=== PATIENT | female | born 1935 | race Caucasian/White ===

== ENCOUNTER 2017-09-07 16:35 | Emergency (ER) | payer OTHER, BC ==
[2017-09-07 17:25] LABS: Absolute Monocytes 0.7 K/uL (0.1-1.3); Absolute Neutrophil 4.5 K/uL (1.8-8.0); Basophils % 1.9 % (0-1.3); Eosinophils % 2.4 % (0-4.4); Hematocrit 31.1 % (36.0-45.0); Lymphocytes % 26.5 % (15.3-44.8); MCH 28.8 pg (27.0-35.0); MCV 85.7 fL (80-100); MPV 8.9 fL (7.6-11.3); Monocytes % 9.7 % (3.3-12.3); RBC Red Blood Cell Count 3.62 M/uL (3.86-4.86)
--- NOTE | 2017-09-07 17:28 | RAD REPORT ---
EXAM DESCRIPTION: CT - Ct Stroke Brain Wo Cont - 09/07/2017 5:22 pm CLINICAL HISTORY: Altered consciousness, history of TIA. COMPARISON: 06/16/2017, 02/03/2016 TECHNIQUE: All CT scans are performed using dose optimization technique as appropriate and may inclu de automated exposure control or mA/KV adjustment according to patient size. FINDINGS: No intracranial hemorrhage, hydrocephalus or extra-axial fluid collection.Mild generalized brain atrophy is present with mild periventricular and deep white matter chronic microvascular ische neli changes.No areas of brain edema or evidence of midline shift. Moderate mucosal thickening of the right maxillary antrum noted. The paranasal sinuses and mastoids a re otherwise clear. The calvarium is intact. IMPRESSION: No acute intracranial abnormality.
[2017-09-07 17:33] LABS: Protime INR 0.96
[2017-09-07 17:35] LABS: Potassium 3.4 mEq/L (3.6-5.0)
[2017-09-07 17:57] LABS: Magnesium 1.2 mg/dL (1.8-2.5)
[2017-09-07] MEDS ORDERED: Magnesium Sulfate 2gm IVPB 2 G/50 ML BAG IV ONE (18:05)
[2017-09-07 18:42] LABS: Urine Blood NEGATIVE (NEG); Urine Glucose NEGATIVE (NEG); Urine Protein NEGATIVE (NEG); Urine Specific Gravity <1.005 (1.005-1.030); Urine pH 5.5 (5.0-7.0)
[2017-09-07 18:46] LABS: Urine Bacteria <20 /HPF (<20); Urine Culture Reflex Order REFLEXED; Urine RBC <5 /HPF (NONE SEEN)
[2017-09-07] MEDS ORDERED: CEFTRIAXONE/SWI 1gm 1 GM/10 ML SYR ONE (18:57)
--- NOTE | 2017-09-07 18:59 | ER ---
Nurse's Notes [facility] Emergency Department Name: Alexa Mcintyre Age: 81 yrs Sex: Female : 1935 Arrival Date: 09/07/2017 Time: 16:42 Bed 2 Private MD: Diagnosis: Urinary tract infection. Presentation: 09/07 16:42 Presenting complaint: EMS states: [facility] left 10 min prior to calling 911. jl7 Pt's reports pt is altered. Pt and pt's are poor historians. [place] stroke scale is negative. Transition of care: patient was not received from another setting of care. Onset of symptoms was September 07, 2017. Care prior to arrival: None. 16:42 Method Of Arrival: EMS: [facility] jl7 16:42 Acuity: ULICES 3 jl7 19:05 Initial Sepsis Screen: Does the patient meet any 2 criteria? Altered Mental Status. jl7 Does the patient have a suspected source of infection? No. Patient's initial sepsis screen is negative. Historical: - Allergies: 16:46 Sulfa (Sulfonamide Antibiotics); jl7 - Home Meds: 16:46 atorvastatin 20 mg Oral tab 1 tab once daily [Active]; lorazepam 0.5 mg Oral tab 1 tab jl7 3 times per day [Active]; metoprolol tartrate 50 mg Oral tab 1 tab 2 times per day [Active]; Plavix 75 mg Oral tab 1 tab once daily [Active]; - PMHx: 16:46 Anxiety; BREAST CA; Diverticulitis; Hyperlipidemia; Hypertension; TIA; jl7 - Immunization history:: Adult Immunizations up to date. - Social history:: Smoking status: Patient/guardian denies using tobacco. Screenin:50 Abuse screen: Denies threats or abuse. Denies injuries from another. Nutritional jl7 screening: No deficits noted. Tuberculosis screening: No symptoms or risk factors identified. Fall Risk IV access (20 points). Total Watson Fall Scale indicates No Risk (0-24 pts). 17:18 The patient has not been NPO before screening. The patient is currently on the jl7 following diet: regular The patient is alert, able to follow commands. The patient does not exhibit slurred or garbled speech The patient is not exhibiting difficulty speaking. The patient does not exhibit difficulty understanding words. The patient is able to swallow own secretions with no drooling or need for suction. Patient tolerated one teaspoon of water. No drooling, immediate coughing, gurgling, or clearing of the throat was noted. The patient tolerated 90mL of water. No drooling, immediate coughing, gurgling, or clearing of the throat was noted. The patient passed the bedside swallow screening. Oral medications may be given as ordered. Contact Physician for further diet orders. Provider notified of bedside swallow screening results: Aris Hi MD. Assessment: 16:50 General: Appears in no apparent distress. uncomfortable, Behavior is calm, cooperative, jl7 appropriate for age. Pain: Denies pain. Neuro: Level of Consciousness is awake, alert, obeys commands, Oriented to person, place, time, Refuge Worker are equal bilaterally Moves all extremities. Speech is normal, Facial symmetry appears normal, Pupils are PERRLA. Cardiovascular: Denies chest pain, Patient's skin is warm and dry. Respiratory: Airway is patent Respiratory effort is even, unlabored, Respiratory pattern is regular, symmetrical, Denies shortness of breath. GI: No signs and/or symptoms were reported involving the gastrointestinal system. Patient currently denies diarrhea, nausea, vomiting. : No signs and/or symptoms were reported regarding the genitourinary system. EENT: No signs and/or symptoms were reported regarding the EENT system. Derm: Skin is pink, warm \T\ dry. Musculoskeletal: No signs and/or symptoms reported regarding the musculoskeletal system. 18:00 Reassessment: No changes from previously documented assessment. Patient and/or family jl7 updated on plan of care and expected duration. Pain level reassessed. Patient is alert, oriented x 3, equal unlabored respirations, skin warm/dry/pink. 18:21 Reassessment: Patient up to bedside commode to urinate, urine sample obtained at this ae1 time. 19:15 Reassessment: Patient is alert, oriented x 3, equal unlabored respirations, skin lp1 warm/dry/pink. Aware of discharge after completion of Magnesium IV. Vital Signs: 16:46 BP 136 / 94; Pulse 71; Resp 16 S; Pulse Ox 99% on R/A; Weight 59.42 kg (R); Height 5 jl7 ft. 1 in. (154.94 cm) (R); Pain 0/10; 17:18 BP 151 / 76; Pulse 71; Resp 16 S; Pulse Ox 99% on R/A; jl7 18:20 BP 167 / 78; Pulse 64; Resp 20 S; Temp 97.8(O); Pulse Ox 100% on R/A; ae1 19:15 BP 151 / 71; Pulse 66; Resp 20; Pulse Ox 98% on R/A; lp1 19:45 BP 134 / 80; Pulse 70; Resp 21; Temp 98.4(O); Pulse Ox 99% on R/A; Pain 0/10; lp1 16:46 Body Mass Index 24.75 (59.42 kg, 154.94 cm) jl7 ED Course: 16:42 Patient arrived in ED. jl7 16:45 Triage completed. jl7 16:46 Arm band placed on right wrist. jl7 16:50 Patient has correct armband on for positive identification. Placed in gown. Bed in low jl7 position. Call light in reach. Side rails up X 1. splitting machine operator on. Pulse ox on. NIBP on. Warm blanket given. 16:50 Lab(s) recollected, by ED staff, sent to lab. Inserted saline lock: 20 gauge in right jl7 antecubital area, using aseptic technique. ,using aseptic technique. Inserted by JES [place] Blood collected. 17:03 Ishan Hercules, KARON is Primary Nurse. jl7 17:03 Aris Hi MD is Attending Physician. ps1 17:22 CT Stroke Brain w/o Contrast In Process Unspecified. EDMS 17:32 Patient moved to radiology via stretcher. ag1 17:32 X-ray completed. Patient tolerated procedure well. ag1 17:32 Patient moved back from radiology. ag1 17:32 Stroke CXR 1 View In Process Unspecified. EDMS 17:58 EKG done, by master automotive glass technician. reviewed by Aris Hi MD. at1 20:00 No provider procedures requiring assistance completed. IV discontinued, No lp1 redness/swelling at site. Pressure dressing applied. Administered Medications: 18:08 Drug: Magnesium Sulfate 2 grams Route: IVPB; Infused Over: 2 hrs; Site: right ae1 antecubital; 19:30 Follow up: IV Status: Completed infusion lp1 19:01 Drug: Rocephin - (cefTRIAXone) 1 grams Route: IVPB; Infused Over: 30 mins; Site: right jl7 antecubital; 19:05 Follow up: Response: No adverse reaction; IV Status: Completed infusion jl7 Outcome: 18:59 Discharge ordered by . ps1 20:00 Discharged to home ambulatory, with significant other. lp1 20:00 Condition: good 20:00 Discharge instructions given to patient, Instructed on discharge instructions, follow up and referral plans. medication usage, Demonstrated understanding of instructions, follow-up care, medications, Prescriptions given X 1. 20:00 Patient left the ED. lp1 Signatures: Dispatcher [employer] EDMS Estrella Fernandez RN RN lp1 Joanna warren, delta system freight car cleaner EKG Tat1 Eusebia Bazzi ag1 Grzegorz Preciado RN RN ae1 Ishan Hercules RN RN jl7 Aris Hi MD MD ps1 Corrections: (The following items were deleted from the chart) 19:05 19:04 Rocephin - (cefTRIAXone) 1 grams IVPB in right antecubital over 30 mins jl7 jl7 21:03 21:03 No provider procedures requiring assistance completed. lp1 lp1 21:03 21:03 IV discontinued, No redness/swelling at site. Pressure dressing applied, lp1 lp1 21:05 21:04 Patient left the ED. lp1 lp1
--- NOTE | 2017-09-07 18:59 | EDPHYS ---
Physician Documentation [facility] Name: Alexa Mcintyre Age: 81 yrs Sex: Female : 1935 Arrival Date: 09/07/2017 Time: 16:42 Bed 2 Private MD: ED Physician Aris Hi HPI: 09/07 18:44 This 81 yrs old Female presents to ER via EMS with complaints of Altered ps1 Mental Status. 18:44 The patient presents with confusion. Onset: The symptoms/episode began/occurred just ps1 prior to arrival. Possible causes: unknown. Associated signs and symptoms: Pertinent negatives: ataxia, chest pain, confusion, shortness of breath, weakness. Patient's baseline: Neuro: alert and fully oriented, Motor: no deficits, Ambulation: walks without assistance, Speech: normal. hx of diverticulitis. Reportedly had some confusion and word finding difficulty. She was alert and oriented on presentation with NIHSS 0. Followed all commands appropriately. . Historical: - Allergies: 16:46 Sulfa (Sulfonamide Antibiotics); jl7 - Home Meds: 16:46 atorvastatin 20 mg Oral tab 1 tab once daily [Active]; lorazepam 0.5 mg Oral tab 1 tab jl7 3 times per day [Active]; metoprolol tartrate 50 mg Oral tab 1 tab 2 times per day [Active]; Plavix 75 mg Oral tab 1 tab once daily [Active]; - PMHx: 16:46 Anxiety; BREAST CA; Diverticulitis; Hyperlipidemia; Hypertension; TIA; jl7 - Immunization history:: Adult Immunizations up to date. - Social history:: Smoking status: Patient/guardian denies using tobacco. ROS: 18:44 Constitutional: Negative for fever, chills, and weight loss, Eyes: Negative for injury, ps1 pain, redness, and discharge, ENT: Negative for injury, pain, and discharge, Cardiovascular: Negative for chest pain, palpitations, and edema, Respiratory: Negative for shortness of breath, cough, wheezing, and pleuritic chest pain, Abdomen/GI: Negative for abdominal pain, nausea, vomiting, diarrhea, and constipation, Back: Negative for injury and pain, MS/Extremity: Negative for injury and deformity, Skin: Negative for injury, rash, and discoloration, Neuro: Negative for headache, weakness, numbness, tingling, and seizure, Psych: Negative for depression, anxiety, suicide ideation, homicidal ideation, and hallucinations. Exam: 18:44 Constitutional: This is a well developed, well nourished patient who is awake, alert, ps1 and in no acute distress. Head/Face: Normocephalic, atraumatic. Eyes: Pupils equal round and reactive to light, extra-ocular motions intact. Lids and lashes normal. Conjunctiva and sclera are non-icteric and not injected. Chest/axilla: Normal chest wall appearance and motion. Nontender with no deformity. No lesions are appreciated. Cardiovascular: Regular rate and rhythm. No gallops, murmurs, or rubs. Normal PMI, no JVD. No pulse deficits. Respiratory: Lungs have equal breath sounds bilaterally, clear to auscultation and percussion. No rales, rhonchi or wheezes noted. No increased work of breathing, no retractions or nasal flaring. Abdomen/GI: Soft, non-tender, with normal bowel sounds. No distension or tympany. No guarding or rebound. No evidence of tenderness throughout. Skin: Warm, dry with normal turgor. Normal color with no rashes, no lesions, and no evidence of cellulitis. MS/ Extremity: Pulses equal, no cyanosis. Neurovascular intact. Full, normal range of motion. Neuro: Awake and alert, GCS 15, oriented to person, place, time, and situation. Cranial nerves II-XII grossly intact. Sensory grossly intact. Psych: Awake, alert, with orientation to person, place and time. Behavior, mood, and affect are within normal limits. Vital Signs: 16:46 BP 136 / 94; Pulse 71; Resp 16 S; Pulse Ox 99% on R/A; Weight 59.42 kg (R); Height 5 jl7 ft. 1 in. (154.94 cm) (R); Pain 0/10; 17:18 BP 151 / 76; Pulse 71; Resp 16 S; Pulse Ox 99% on R/A; jl7 18:20 BP 167 / 78; Pulse 64; Resp 20 S; Temp 97.8(O); Pulse Ox 100% on R/A; ae1 19:15 BP 151 / 71; Pulse 66; Resp 20; Pulse Ox 98% on R/A; lp1 19:45 BP 134 / 80; Pulse 70; Resp 21; Temp 98.4(O); Pulse Ox 99% on R/A; Pain 0/10; lp1 16:46 Body Mass Index 24.75 (59.42 kg, 154.94 cm) jl7 MDM: 17:06 Patient medically screened. ps1 18:44 Data reviewed: vital signs, nurses notes, lab test result(s), EKG, radiologic studies. ps1 ED course: patient has been asymptomatic and currently feels like she is back at baseline. She has a history of hypomagnesemia and was supposed to be on supplements but has not been recently. She states that there is no use of admitting her to the hospital as she is feeling fine and much better. . 18:55 ED course: Possible UTI. "dirty catch" with squames but indeterminate. Will give ps1 Rocephin as this is high on the differential of etiology of confusion in elderly. . 09/07 17:04 Order name: Troponin (emerg Dept Use Only); Complete Time: 17:44 ps1 09/07 17:04 Order name: Magnesium; Complete Time: 18:01 ps1 09/07 17:04 Order name: Basic Metabolic Panel; Complete Time: 18:01 ps1 09/07 17:04 Order name: CBC with Diff; Complete Time: 17:44 ps1 09/07 17:04 Order name: Protime (+inr); Complete Time: 17:44 ps1 09/07 17:04 Order name: Urine Microscopic Only; Complete Time: 18:54 ps1 09/07 17:04 Order name: CT Stroke Brain w/o Contrast; Complete Time: 17:44 ps1 09/07 17:04 Order name: Stroke CXR 1 View ps1 09/07 17:04 Order name: EKG; Complete Time: 17:05 ps1 09/07 18:37 Order name: Urine Dipstick--Ancillary (enter results) mw2 09/07 18:37 Order name: Urine Dipstick-Ancillary; Complete Time: 18:54 EDMS 09/07 18:48 Order name: Urine Culture EDWI 09/07 17:04 Order name: Accucheck; Complete Time: 17:18 ps1 09/07 17:04 Order name: Cardiac monitoring; Complete Time: 17:15 ps1 09/07 17:04 Order name: EKG - Nurse/Tech; Complete Time: 18:08 ps1 04/18 17:04 Order name: IV Saline Lock; Complete Time: 17:15 ps1 18 17:04 Order name: Labs collected and sent; Complete Time: 17:15 ps1 18 17:04 Order name: NPO; Complete Time: 17:15 ps1 18 17:04 Order name: O2 Per Protocol; Complete Time: 17:15 ps1 18 17:04 Order name: O2 Sat Monitoring; Complete Time: 17:15 ps1 18 17:04 Order name: Stroke Swallow Screen; Complete Time: 17:15 ps1 18 17:04 Order name: Urine Dipstick-Ancillary (obtain specimen); Complete Time: 18:32 ps1 EC:45 Rate is 61 beats/min. Rhythm is regular. QRS [place] is Normal. ND interval is normal. QRS ps1 interval is normal. QT interval is normal. No Q waves. T waves are Normal. No ST changes noted. Clinical impression: Normal ECG and Sinus arrythmia. Interpreted by me. Administered Medications: 18:08 Drug: Magnesium Sulfate 2 grams Route: IVPB; Infused Over: 2 hrs; Site: right ae1 antecubital; 19:30 Follow up: IV Status: Completed infusion lp1 19:01 Drug: Rocephin - (cefTRIAXone) 1 grams Route: IVPB; Infused Over: 30 mins; Site: right jl7 antecubital; 19:05 Follow up: Response: No adverse reaction; IV Status: Completed infusion jl7 Disposition: 09/07/17 18:59 Discharged to Home. Impression: Urinary tract infection. . - Condition is Stable. - Discharge Instructions: Hypomagnesemia, Urinary Tract Infection. - Prescriptions for Keflex 500 mg Oral Capsule - take 1 capsule by ORAL route every 8 hours for 10 days; 30 capsule. - Medication Reconciliation Form, Thank You Letter, Antibiotic Education, Prescription Opioid Use form. - Follow up: Private Physician; When: 48 Hours; Reason: Recheck today's complaints, Continuance of care, Re-evaluation by your physician. Follow up: Emergency Department; When: As needed; Reason: Fever > 102 F, Trouble breathing, Worsening of condition. - Problem is new. - Symptoms are resolved. Signatures: Dispatcher [employer] EDMS Estrella Fernandez RN RN lp1 Grzegorz Preciado RN RN ae1 Ishan Hercules RN RN jl7 Aris Hi MD MD ps1
--- NOTE | 2017-09-07 19:07 | RAD REPORT ---
EXAM DESCRIPTION: RAD - Chest Single View - 09/07/2017 5:33 pm CLINICAL HISTORY: CVA, shortness of breath COMPARISON: June 25 TECHNIQUE: AP portable chest image was obtained 1725 hours . FINDINGS: Interstitial lung disease is present similar to comparison. No superimposed failure, infil trate or mass. Large hiatal hernia is present. Trachea is midline. Heart and vasculature are normal. No measurable pleural effusion and no pneumothorax. No gross bony abnormality seen. No acute aortic f indings suspected. IMPRESSION: Chronic interstitial lung disease similar to comparison. No acute finding. Above detailed findings are stable from prior imaging.
[2017-09-07 21:14] VITALS: BP 134/80; TEMP 98.4; O2SAT 99
--- NOTE | 2017-09-07 22:09 | EKG ---
Test Date: 2017-09-07 Test Time: 17:45:12 Kitchen Operator: NILES MEASUREMENT RESULTS: Intervals: Rate: 61 NM: 178 QRSD: 76 QT: 426 QTc: 428 [place]: P: 53 NM: 178 QRS: 31 T: 56 INTERPRETIVE STATEMENTS: Sinus rhythm with marked sinus arrhythmia Otherwise normal ECG Compared to ECG 07/06/2017 22:25:25 Atrial fibrillation no longer present Electronically Signed On 09-07-17 22:08:35 CDT by Jean Pitt
== END 2017-09-07 21:04 | disposition home or self-care (01) ==
LOC: ER 16:35
DX: N39.0 Urinary tract infection, site not specified (principal); I10 Essential (primary) hypertension; E78.5 Hyperlipidemia, unspecified; Z85.3 Personal history of malignant neoplasm of breast; F41.9 Anxiety disorder, unspecified; Z79.01 Long term (current) use of anticoagulants; Z88.2 Allergy status to sulfonamides
CPT/HCPCS: 36415; 70450; 71045; 80048; 83735; 84484; 85025; 85610; 87086; 87088; 93005; 96365; 96375; 99285; J0696; J3475; 81003; 81015

== ENCOUNTER 2017-09-08 09:21 | Emergency (ER) | payer OTHER, BC ==
--- NOTE | 2017-09-08 10:26 | RAD REPORT ---
EXAM DESCRIPTION: CT - Head Brain Wo Cont - 09/08/2017 10:13 am CLINICAL HISTORY: Altered consciousness, CVA. COMPARISON: 09/07/2017, 06/16/2017 TECHNIQUE: All CT scans are performed using dose optimization technique as appropriate and may inclu de automated exposure control or mA/KV adjustment according to patient size. FINDINGS: No intracranial hemorrhage, hydrocephalus or extra-axial fluid collection.Mild brain atrop hy noted.No areas of brain edema or evidence of midline shift. Polypoid mucosal thickening involving the right maxillary antrum, anterior right ethmoid air cells. F rontal sinuses are underpneumatized. The calvarium is intact. IMPRESSION: No acute intracranial abnormality.
[2017-09-08] MEDS ORDERED: NA CHLORIDE 0.9% 1,000 ML ONE (10:30)
[2017-09-08] MEDS ORDERED: THIAMINE 200 MG/2 ML INJ ONE (10:30)
[2017-09-08 11:06] LABS: Absolute Lymphocytes (CBC) 1.2 K/uL (0.7-4.9); Absolute Monocytes 0.5 K/uL (0.1-1.3); Absolute Neutrophil 7.9 K/uL (1.8-8.0); Basophils % 0.8 % (0-1.3); Eosinophils % 0.5 % (0-4.4); Hematocrit 32.7 % (36.0-45.0); Lymphocytes % 12.5 % (15.3-44.8); MCV 85.8 fL (80-100); MPV 8.5 fL (7.6-11.3); Monocytes % 5.1 % (3.3-12.3); RBC Red Blood Cell Count 3.81 M/uL (3.86-4.86)
--- NOTE | 2017-09-08 11:06 | RAD REPORT ---
EXAM DESCRIPTION: MRI - Brain Wo Cont - 09/08/2017 10:41 am CLINICAL HISTORY: Alteration of consciousness/CVA COMPARISON: September 08, [address] and 2011 MRI TECHNIQUE: Axial, sagittal, and coronal magnetic images of the brain were obtained. Contrast was not requested FINDINGS: Mild to moderate signal is present within periventricular, deep and subcortical white yaritza er bilaterally without significant change from the 2011 MRI. Diffusion-weighted/ADC mapping does not reveal evidence of acute infarction. The ventricles are normal caliber. An extra-axial fluid collection is not present Abnormal signal within the right maxillary sinus has the appearance of inspissated mucus. Fluid withi n the mastoids is not noted. IMPRESSION: Mild to moderate signal within periventricular, deep and subcortical white matter likely representing ischemic changes secondary to small vessel disease. No acute intracranial abnormality is seen
[2017-09-08 11:10] LABS: Protime INR 0.93
[2017-09-08 11:18] LABS: Potassium 3.9 mEq/L (3.6-5.0)
[2017-09-08 11:25] LABS: Albumin 3.3 g/dL (3.2-5.5); Bilirubin Direct 0.1 mg/dL (0-0.2); Bilirubin Total 0.5 mg/dL (0.3-1.2); Magnesium 1.5 mg/dL (1.8-2.5); Protein, Total 6.5 g/dL (6.0-8.3)
[2017-09-08 11:28] LABS: CKMB Creatine Kinase MB 1.2 ng/ml (0.3-4.0)
--- NOTE | 2017-09-08 11:48 | RAD REPORT ---
EXAM DESCRIPTION: Nitin Single View09/08/2017 11:15 am CLINICAL HISTORY: Cough COMPARISON: September 07, 2017 FINDINGS: The lungs appear clear of acute infiltrate. The heart is normal size. A moderate to large hiatal hernia is present. A central venous catheter has its tip in the superior vena cava IMPRESSION: No acute abnormalities displayed
[2017-09-08 11:49] LABS: Urine Blood NEGATIVE (NEG); Urine Glucose NEGATIVE (NEG); Urine Protein NEGATIVE (NEG)
[2017-09-08] MEDS ORDERED: MAGNESIUM SULFATE 1 gm IVPB 1 GM/100 ML BAG IV ONE (12:05)
--- NOTE | 2017-09-08 12:21 | ER ---
Nurse's Notes [facility] Name: Alexa Mcintyre Age: 81 yrs Sex: Female : 1935 Arrival Date: 09/08/2017 Time: 09:26 Bed 2 Private MD: Brandon Johnson E Diagnosis: Aphasia-resolved;Hypomagnesemia;Acute sinusitis Presentation: 09/08 09:33 Presenting complaint: states: difficulty speaking since 1600 yesterday. seen in ER and evaluated for stroke. Diagnosed with UTI and sent home with antibiotics. Pt is back because she feels as if her coordination is worse and her difficulty speaking is not improving. Transition of care: patient was not received from another setting of care. Onset of symptoms was September 07, 2017 at 16:00. Initial Sepsis Screen: Does the patient meet any 2 criteria? No. Patient's initial sepsis screen is negative. Does the patient have a suspected source of infection? No. Patient's initial sepsis screen is negative. Care prior to arrival: None. 09:33 Method Of Arrival: Ambulatory 09:33 Acuity: ULICES 3 Triage Assessment: 13:41 General: Appears. hb Stroke Activation: Symptom onset > 6 hours Physician: Stroke Attending; Name: ; Notified At: ; Arrived At: Physician: Chief Stroke Resident; Name: ; Notified At: ; Arrived At: Physician: Stroke Resident; Name: ; Notified At: ; Arrived At: Physician: ED Attending; Name: ; Notified At: ; Arrived At: Physician: ED Resident; Name: ; Notified At: ; Arrived At: Historical: - Allergies: 09:35 Sulfa (Sulfonamide Antibiotics); ss - Home Meds: 09:35 Plavix 75 mg Oral tab 1 tab once daily [Active]; atorvastatin 20 mg Oral tab 1 tab once ss daily [Active]; lorazepam 0.5 mg Oral tab 1 tab 3 times per day [Active]; metoprolol tartrate 50 mg Oral tab 1 tab 2 times per day [Active]; - PMHx: 09:35 Anxiety; BREAST CA; Diverticulitis; Hyperlipidemia; Hypertension; TIA; ss - Immunization history:: Adult Immunizations up to date. - Social history:: Smoking status: Patient/guardian denies using tobacco. - Family history:: not pertinent. Screenin:09 Abuse screen: Denies threats or abuse. Denies injuries from another. Nutritional hb screening: No deficits noted. Tuberculosis screening: No symptoms or risk factors identified. Fall Risk Total Watson Fall Scale indicates Low Risk Score (25-44 pts). Fall prevention measures have been instituted. Side Rails Up X 2 Frequent Obs/Assesments occuring Family Present and informed to notify staff if they need to leave bedside As available Patient and Family Educated on Fall Prevention Program and strategies. Assessment: 10:09 Reassessment: pt taken to CT at this time. tw2 10:55 Reassessment: t returned from radiology via stretcher with [employer]. Family remains at bedside. . 10:55 Patient has been NPO before screening. The patient is alert, and able to follow commands. The patient does not exhibit slurred or garbled speech. Dr. Oliveros The patient is not exhibiting difficulty speaking. The patient does not exhibit difficulty understanding words. The patient is able to swallow own secretions with no drooling or need for suction. Patient tolerated one teaspoon of water. No drooling, immediate coughing, gurgling, or clearing of the throat was noted. The patient tolerated 90mL of water. No drooling, immediate coughing, gurgling, or clearing of the throat was noted. The patient passed the bedside swallow screening. Oral medications may be given as ordered. Contact Physician for further diet orders. 12:00 Reassessment: Patient appears in no apparent distress at this time. No changes from previously documented assessment. Patient and/or family updated on plan of care and expected duration. Pain level reassessed. Patient is alert, oriented x 3, equal unlabored respirations, skin warm/dry/pink. 12:48 Reassessment: Discharge ordered, IV medication infusing at this time. hb Vital Signs: 09:33 BP 137 / 81; Pulse 63; Resp 16; Temp 98.6(O); Pulse Ox 98% ; Weight 58.51 kg; Height 5 ss ft. 1 in. (154.94 cm); Pain 0/10; 11:00 BP 138 / 79; Pulse 74; Resp 16; Pulse Ox 100% on R/A; hb 12:45 BP 140 / 80; Pulse 74; Resp 15; Pulse Ox 100% on R/A; hb 13:40 BP 136 / 78; Pulse 72; Resp 16; Pulse Ox 100% on R/A; hb 09:33 Body Mass Index 24.37 (58.51 kg, 154.94 cm) NIH Stroke Scale Scores: 11:00 NIHSS Score: 0 hb 12:59 NIHSS Score: 0 davon ED Course: 09:26 Patient arrived in ED. mr 09:26 Brandon Johnson MD is Private Physician. mr 09:35 Triage completed. ss 09:35 Arm band placed on left wrist. ss 09:41 Marian Mei, RN is Primary Nurse. hb 09:44 Leonardo Oliveros MD is Attending Physician. davon 10:13 CT Head Brain wo Cont In Process Unspecified. EDMS 10:34 CT completed. Patient tolerated procedure well. Patient moved to CT Patient moved to MRI. 10:36 Brain Wo Cont In Process Unspecified. EDMS 10:39 MRI completed. Patient tolerated well. em2 11:00 Inserted saline lock: 20 gauge in right antecubital area, using aseptic technique. hb Blood collected. 11:08 EKG done, by information technology professor. reviewed by Leonardo Oliveros MD. at1 11:09 Patient has correct armband on for positive identification. Placed in gown. Bed in low hb position. Call light in reach. Side rails up X2. 11:15 XRAY Chest (1 view) In Process Unspecified. EDMS 11:15 X-ray completed. Portable x-ray completed in exam room. Patient tolerated procedure mh1 well. 12:21 Brandon Johnson MD is Referral Physician. davon 12:21 Tim Martin MD is Referral Physician. davon 12:45 Carotid Artery Bilateral In Process Unspecified. EDMS 13:42 No provider procedures requiring assistance completed. IV discontinued, intact, hb bleeding controlled, No redness/swelling at site. Pressure dressing applied. Administered Medications: 11:11 Drug: NS 0.9% 500 ml Route: IV; Rate: bolus; Site: right antecubital; hb 11:56 Follow up: Response: No change in condition; IV Status: Completed infusion hb 11:12 Drug: foLIC Acid 1 mg Route: IVPB; Site: right antecubital; hb 11:55 Follow up: Response: No adverse reaction; IV Status: Completed infusion hb 11:55 Drug: NS 0.9% 1000 ml Route: IV; Rate: 125 ml/hr; Site: right antecubital; hb 12:15 Drug: Magnesium Sulfate 1 grams Route: IVPB; Infused Over: 1 hrs; Site: right hb antecubital; 13:02 Drug: Aspirin 162 mg Route: PO; hb 13:35 Follow up: Response: No adverse reaction hb Outcome: 12:21 Discharge ordered by . davon 13:41 Discharged to home via wheelchair, with family. hb 13:41 Condition: stable 13:41 Discharge instructions given to patient, significant other, Instructed on discharge instructions, follow up and referral plans. medication usage, Demonstrated understanding of instructions, follow-up care, medications, Prescriptions given X 2. 13:42 Patient left the ED. NIH Stroke Scale - NIH Stroke Score Date: 09/08/2017 Time: 11:00 Total Score = 0 1a. Level of Consciousness (LOC) - 0(Alert) 1b. Level of Consciousness (LOC) (Year \T\ Age) - 0(Both) 1c. LOC Commands (Open \T\ Closes Eyes/Steam Press Tender) - 0(Both) 2. Best Gaze (Lateral Gaze Paresis) - 0(Normal) 3. Visual Field Loss - 0(No visual loss) 4. Facial Palsy - 0(Normal) 5a. Left Arm: Motor (10-second hold) - 0(No drift) 5b. Right Arm: Motor (10-second hold) - 0(No drift) 6a. Left Leg: Motor (5-second hold - always test supine) - 0(No drift) 6b. Right Leg: Motor (5-second hold - always test supine) - 0(No drift) 7. Limb Ataxia (finger/nose \T\ heel/mcdermott - test with eyes open) - 0(Absent) 8. Sensory Loss (pinprick arms/legs/face) - 0(Normal) 9. Best Language: Aphasia (description/naming/reading) - 0(No aphasia) 10. Dysarthria (speech clarity - read or repeat words) - 0(Normal) 11. Extinction and Inattention (visual/tactile/auditory/spatial/personal) - 0(No abnormality) Initials: NIH Stroke Scale - NIH Stroke Score Date: 09/08/2017 Time: 12:59 Total Score = 0 1a. Level of Consciousness (LOC) - 0(Alert) 1b. Level of Consciousness (LOC) (Year \T\ Age) - 0(Both) 1c. LOC Commands (Open \T\ Closes Eyes/Steam Press Tender) - 0(Both) 2. Best Gaze (Lateral Gaze Paresis) - 0(Normal) 3. Visual Field Loss - 0(No visual loss) 4. Facial Palsy - 0(Normal) 5a. Left Arm: Motor (10-second hold) - 0(No drift) 5b. Right Arm: Motor (10-second hold) - 0(No drift) 6a. Left Leg: Motor (5-second hold - always test supine) - 0(No drift) 6b. Right Leg: Motor (5-second hold - always test supine) - 0(No drift) 7. Limb Ataxia (finger/nose \T\ heel/mcdermott - test with eyes open) - 0(Absent) 8. Sensory Loss (pinprick arms/legs/face) - 0(Normal) 9. Best Language: Aphasia (description/naming/reading) - 0(No aphasia) 10. Dysarthria (speech clarity - read or repeat words) - 0(Normal) 11. Extinction and Inattention (visual/tactile/auditory/spatial/personal) - 0(No abnormality) Initials: davon Addendum: 09/16/2017 07:50 Addendum: Culture Results: Positive urine culture. No further action required. iw Bacteria sensitive to prescribed antibiotic. Signatures: Dispatcher [employer] Leonardo Bonilla MD MD cha Rivera, Maria mr Mujica Anya mh1 Susan Lockwood Irene, RN RN iw Smirch, Shelby, RN RN ss Montes, Enrique em2 Joanna warren, railroad car repair supervisor EKG Tat1 Marian Mei RN RN hb Wise, Tara, RN RN tw2
--- NOTE | 2017-09-08 12:21 | EDPHYS ---
Physician Documentation [facility] Name: Alexa Mcintyre Age: 81 yrs Sex: Female : 1935 Arrival Date: 09/08/2017 Time: 09:26 Bed 2 Private MD: Brandon Johnson E ED Physician Leonardo Oliveros HPI: 09/08 12:17 This 81 yrs old Female presents to ER via Ambulatory with complaints of davon Trouble Talking. 12:17 The patient presents to the emergency department with a speech or higher order brain davon function problem, aphasia, that is mild. Onset: The symptoms/episode began/occurred just prior to arrival, this morning. Context: occurred at home. Associated signs and symptoms: The patient has no apparent associated signs or symptoms. Severity of symptoms: At their worst the symptoms were mild in the emergency department the symptoms have resolved and did so just prior to arrival. Patient's baseline: Neuro: alert and fully oriented. Current symptoms: Currently, the patient is not experiencing any symptoms. The patient has not experienced similar symptoms in the past. Historical: - Allergies: 09:35 Sulfa (Sulfonamide Antibiotics); ss - Home Meds: 09:35 Plavix 75 mg Oral tab 1 tab once daily [Active]; atorvastatin 20 mg Oral tab 1 tab once ss daily [Active]; lorazepam 0.5 mg Oral tab 1 tab 3 times per day [Active]; metoprolol tartrate 50 mg Oral tab 1 tab 2 times per day [Active]; - PMHx: 09:35 Anxiety; BREAST CA; Diverticulitis; Hyperlipidemia; Hypertension; TIA; ss - Immunization history:: Adult Immunizations up to date. - Social history:: Smoking status: Patient/guardian denies using tobacco. - Family history:: not pertinent. ROS: 12:17 Constitutional: Negative for fever, chills, and weight loss, Eyes: Negative for injury, davon pain, redness, and discharge, ENT: Negative for injury, pain, and discharge, Neck: Negative for injury, pain, and swelling, Cardiovascular: Negative for chest pain, palpitations, and edema, Respiratory: Negative for shortness of breath, cough, wheezing, and pleuritic chest pain, Abdomen/GI: Negative for abdominal pain, nausea, vomiting, diarrhea, and constipation, Back: Negative for injury and pain, : Negative for injury, bleeding, discharge, and swelling, MS/Extremity: Negative for injury and deformity, Skin: Negative for injury, rash, and discoloration, Psych: Negative for depression, anxiety, suicide ideation, homicidal ideation, and hallucinations, Allergy/Immunology: Negative for hives, rash, and allergies, Endocrine: Negative for neck swelling, polydipsia, polyuria, polyphagia, and marked weight changes, Hematologic/Lymphatic: Negative for swollen nodes, abnormal bleeding, and unusual bruising. 12:17 Neuro: Positive for speech changes, weakness. Exam: 12:17 Constitutional: This is a well developed, well nourished patient who is awake, alert, davon and in no acute distress. Head/Face: Normocephalic, atraumatic. Eyes: Pupils equal round and reactive to light, extra-ocular motions intact. Lids and lashes normal. Conjunctiva and sclera are non-icteric and not injected. Cornea within normal limits. Periorbital areas with no swelling, redness, or edema. ENT: Nares patent. No nasal discharge, no septal abnormalities noted. Tympanic membranes are normal and external auditory canals are clear. Oropharynx with no redness, swelling, or masses, exudates, or evidence of obstruction, uvula midline. Mucous membranes moist. Neck: Trachea midline, no thyromegaly or masses palpated, and no cervical lymphadenopathy. Supple, full range of motion without nuchal rigidity, or vertebral point tenderness. No Meningismus. Chest/axilla: Normal chest wall appearance and motion. Nontender with no deformity. No lesions are appreciated. Cardiovascular: Regular rate and rhythm with a normal S1 and S2. No gallops, murmurs, or rubs. Normal PMI, no JVD. No pulse deficits. Respiratory: Lungs have equal breath sounds bilaterally, clear to auscultation and percussion. No rales, rhonchi or wheezes noted. No increased work of breathing, no retractions or nasal flaring. Abdomen/GI: Soft, non-tender, with normal bowel sounds. No distension or tympany. No guarding or rebound. No evidence of tenderness throughout. Back: No spinal tenderness. No costovertebral tenderness. Full range of motion. Female : Normal external genitalia. Skin: Warm, dry with normal turgor. Normal color with no rashes, no lesions, and no evidence of cellulitis. MS/ Extremity: Pulses equal, no cyanosis. Neurovascular intact. Full, normal range of motion. Neuro: Awake and alert, GCS 15, oriented to person, place, time, and situation. Cranial nerves II-XII grossly intact. Motor strength 5/5 in all extremities. Sensory grossly intact. Cerebellar exam normal. Normal gait. Psych: Awake, alert, with orientation to person, place and time. Behavior, mood, and affect are within normal limits. Vital Signs: 09:33 BP 137 / 81; Pulse 63; Resp 16; Temp 98.6(O); Pulse Ox 98% ; Weight 58.51 kg; Height 5 ss ft. 1 in. (154.94 cm); Pain 0/10; 11:00 BP 138 / 79; Pulse 74; Resp 16; Pulse Ox 100% on R/A; hb 12:45 BP 140 / 80; Pulse 74; Resp 15; Pulse Ox 100% on R/A; hb 13:40 BP 136 / 78; Pulse 72; Resp 16; Pulse Ox 100% on R/A; hb 09:33 Body Mass Index 24.37 (58.51 kg, 154.94 cm) NIH Stroke Scale Scores: 11:00 NIHSS Score: 0 hb 12:59 NIHSS Score: 0 davon MDM: 09:44 Patient medically screened. [facility] 12:53 Data reviewed: vital signs, nurses notes, lab test result(s), EKG, radiologic studies, [facility] CT scan, doppler, MRI, plain films. 09/08 09:53 Order name: Basic Metabolic Panel; Complete Time: 12:12 [facility] 09/08 09:53 Order name: BNP; Complete Time: 12:12 [facility] 09/08 09:53 Order name: CBC with Diff; Complete Time: 12:12 [facility] 09/08 09:53 Order name: Ckmb; Complete Time: 12:12 [facility] 09/08 09:53 Order name: CPK; Complete Time: 12:12 [facility] 09/08 09:53 Order name: LFT's; Complete Time: 12:12 [facility] 09/08 09:53 Order name: Magnesium; Complete Time: 12:12 [facility] 09/08 09:53 Order name: PT-INR; Complete Time: 12:12 [facility] 09/08 09:53 Order name: Ptt, Activated; Complete Time: 12:12 [facility] 09/08 09:53 Order name: Troponin (emerg Dept Use Only); Complete Time: 12:12 [facility] 09/08 09:53 Order name: XRAY Chest (1 view); Complete Time: 12:12 [facility] 09/08 09:53 Order name: CT Head Brain wo Cont; Complete Time: 12:12 [facility] 09/08 09:53 Order name: Urine Culture [facility] 09/08 11:09 Order name: Urine Dipstick--Ancillary (enter results); Complete Time: 12:12 [facility] 09/08 09:53 Order name: EKG; Complete Time: 09:54 [facility] 09/08 09:53 Order name: Cardiac monitoring; Complete Time: 10:00 [facility] 09/08 09:53 Order name: EKG - Nurse/Tech; Complete Time: 11:12 [facility] 09/08 09:53 Order name: IV Saline Lock; Complete Time: 11:12 [facility] 09/08 09:53 Order name: Labs collected and sent; Complete Time: 11:12 [facility] 09/08 09:53 Order name: O2 Per Protocol; Complete Time: 10:00 [facility] 09/08 09:53 Order name: O2 Sat Monitoring; Complete Time: 10:00 [facility] 09/08 09:53 Order name: Urine Dipstick-Ancillary (obtain specimen); Complete Time: 11:12 [facility] 09/08 10:36 Order name: Brain Wo Cont; Complete Time: 12:12 EDNM 09/08 12:17 Order name: US Carotid Artery Bilateral davon Administered Medications: 11:11 Drug: NS 0.9% 500 ml Route: IV; Rate: bolus; Site: right antecubital; hb 11:56 Follow up: Response: No change in condition; IV Status: Completed infusion hb 11:12 Drug: foLIC Acid 1 mg Route: IVPB; Site: right antecubital; hb 11:55 Follow up: Response: No adverse reaction; IV Status: Completed infusion hb 11:55 Drug: NS 0.9% 1000 ml Route: IV; Rate: 125 ml/hr; Site: right antecubital; hb 12:15 Drug: Magnesium Sulfate 1 grams Route: IVPB; Infused Over: 1 hrs; Site: right hb antecubital; 13:02 Drug: Aspirin 162 mg Route: PO; hb 13:35 Follow up: Response: No adverse reaction hb Disposition: 09/08/17 12:21 Discharged to Home. Impression: Aphasia - resolved, Hypomagnesemia, Acute sinusitis. - Condition is Stable. - Discharge Instructions: Hypomagnesemia, Sinusitis, Adult, Aphasia, Aspirin and Your Heart. - Prescriptions for Plavix 75 mg Oral Tablet - take 1 tablet by ORAL route once daily; 20 tablet. Augmentin 500- 125 mg Oral Tablet - take 1 tablet by ORAL route every 12 hours for 10 days; 20 tablet. - Medication Reconciliation Form, Thank You Letter, Antibiotic Education, Prescription Opioid Use form. - Follow up: Brandon Johnson; When: 2 - 3 days; Reason: Recheck today's complaints, Continuance of care, Re-evaluation by your physician. Follow up: Tim Martin; When: 2 - 3 days; Reason: Recheck today's complaints, Re-evaluation by your physician. - Problem is new. - Symptoms have improved. NIH Stroke Scale - NIH Stroke Score Date: 09/08/2017 Time: 11:00 Total Score = 0 1a. Level of Consciousness (LOC) - 0(Alert) 1b. Level of Consciousness (LOC) (Year \T\ Age) - 0(Both) 1c. LOC Commands (Open \T\ Closes Eyes/Risk Control Specialist) - 0(Both) 2. Best Gaze (Lateral Gaze Paresis) - 0(Normal) 3. Visual Field Loss - 0(No visual loss) 4. Facial Palsy - 0(Normal) 5a. Left Arm: Motor (10-second hold) - 0(No drift) 5b. Right Arm: Motor (10-second hold) - 0(No drift) 6a. Left Leg: Motor (5-second hold - always test supine) - 0(No drift) 6b. Right Leg: Motor (5-second hold - always test supine) - 0(No drift) 7. Limb Ataxia (finger/nose \T\ heel/mcdermott - test with eyes open) - 0(Absent) 8. Sensory Loss (pinprick arms/legs/face) - 0(Normal) 9. Best Language: Aphasia (description/naming/reading) - 0(No aphasia) 10. Dysarthria (speech clarity - read or repeat words) - 0(Normal) 11. Extinction and Inattention (visual/tactile/auditory/spatial/personal) - 0(No abnormality) Initials: NIH Stroke Scale - NIH Stroke Score Date: 09/08/2017 Time: 12:59 Total Score = 0 1a. Level of Consciousness (LOC) - 0(Alert) 1b. Level of Consciousness (LOC) (Year \T\ Age) - 0(Both) 1c. LOC Commands (Open \T\ Closes Eyes/Risk Control Specialist) - 0(Both) 2. Best Gaze (Lateral Gaze Paresis) - 0(Normal) 3. Visual Field Loss - 0(No visual loss) 4. Facial Palsy - 0(Normal) 5a. Left Arm: Motor (10-second hold) - 0(No drift) 5b. Right Arm: Motor (10-second hold) - 0(No drift) 6a. Left Leg: Motor (5-second hold - always test supine) - 0(No drift) 6b. Right Leg: Motor (5-second hold - always test supine) - 0(No drift) 7. Limb Ataxia (finger/nose \T\ heel/mcdermott - test with eyes open) - 0(Absent) 8. Sensory Loss (pinprick arms/legs/face) - 0(Normal) 9. Best Language: Aphasia (description/naming/reading) - 0(No aphasia) 10. Dysarthria (speech clarity - read or repeat words) - 0(Normal) 11. Extinction and Inattention (visual/tactile/auditory/spatial/personal) - 0(No abnormality) Initials: davon Signatures: Dispatcher [employer] EDLeonardo Salinas MD MD cha Smirch, Shelby, RN RN Marian Mei RN RN Corrections: (The following items were deleted from the chart) 10:36 09:54 MR STROKE PROTOCOL+MRI.RAD.MARCK ordered. EDMS EDMS
[2017-09-08] MEDS ORDERED: ASPIRIN 81 MG CHEWABLE TABLET ONE (12:54)
--- NOTE | 2017-09-08 12:54 | RAD REPORT ---
EXAM DESCRIPTION: [facility] - CP - 09/08/2017 12:45 pm CLINICAL HISTORY: CVA, altered consciousness. COMPARISON: 02/04/2016 TECHNIQUE: Real-time sonographic evaluation of both carotid systems was performed. Doppler interroga tion was performed with waveform tracing bilaterally. FINDINGS: Normal high resistance waveforms are noted in both external carotid arteries. The common c arotid arteries and internal carotid arteries show normal low resistance waveforms. Mild atheromatous plaquing is seen in both proximal internal carotid arteries. Peak systolic and end diastolic velocity values and the ICA/CCA ratios are in the non-hemodynamically significant range. Antegrade flow seen in both vertebral arteries. IMPRESSION: Mild atheromatous plaquing is seen in both proximal internal carotid arteries. No evidence of a hemodynamically significant stenosis.
[2017-09-08 13:48] VITALS: TEMP 98.6
[2017-09-08 13:49] VITALS: O2SAT 100
[2017-09-08 13:51] VITALS: BP 136/78
--- NOTE | 2017-09-08 17:02 | EKG ---
Test Date: 2017-09-08 Test Time: 10:56:07 Branch Service Associate: NILES MEASUREMENT RESULTS: Intervals: Rate: 67 TN: 176 QRSD: 70 QT: 390 QTc: 412 Nogal: P: TN: 176 QRS: 40 T: 50 INTERPRETIVE STATEMENTS: Sinus rhythm with premature supraventricular complexes Otherwise normal ECG Compared to ECG 09/07/2017 17:45:12 Atrial premature complex(es) now present Sinus arrhythmia no longer present Electronically Signed On 09-08-17 17:01:46 CDT by Jean Pitt
== END 2017-09-08 13:42 | disposition home or self-care (01) ==
LOC: ER 09:21
DX: E83.42 Hypomagnesemia (principal); J01.90 Acute sinusitis, unspecified; I10 Essential (primary) hypertension; E78.5 Hyperlipidemia, unspecified; F41.9 Anxiety disorder, unspecified; Z79.01 Long term (current) use of anticoagulants; Z85.3 Personal history of malignant neoplasm of breast; Z88.2 Allergy status to sulfonamides
CPT/HCPCS: 36415; 70450; 70551; 71045; 80048; 80076; 81003; 82550; 82553; 83735; 83880; 84484; 85025; 85610; 85730; 87077; 87086; 87088; 87186; 93005; 93880; 96365; 96375; 99284; J3411; J3475; J7030; 96361

== ENCOUNTER 2020-06-14 08:04 | Emergency (ER) | payer OTHER, BC ==
--- NOTE | 2020-06-14 09:11 | EDPHYS ---
Physician Documentation [facility] Name: Alexa Mcintyre Age: 84 yrs Sex: Female : 1935 Arrival Date: 06/14/2020 Time: 08:07 Bed 23 Private MD: Brandon Johnson E ED Physician Rikki Sadler HPI: 06/14 08:58 This 84 yrs old Female presents to ER via Ambulatory with complaints of Fall rn Injury. 08:58 Details of fall: The patient fell from an upright position. Onset: The symptoms/episode rn began/occurred this morning. Associated injuries: The patient sustained left elbow. Severity of symptoms: At their worst the symptoms were mild, in the emergency department the symptoms are unchanged. The patient has experienced similar episodes in the past. The patient has not recently seen a physician. 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 No head injury/neck pain/chest pain/back pain/hip pain. . Historical: - Allergies: 08:30 Sulfa (Sulfonamide Antibiotics); aa5 - Home Meds: 08:30 atorvastatin 20 mg Oral tab 1 tab once daily [Active]; lorazepam 0.5 mg Oral tab 1 tab aa5 3 times per day [Active]; metoprolol tartrate 50 mg Oral tab 1 tab 2 times per day [Active]; Plavix 75 mg Oral tab 1 tab once daily [Active]; - PMHx: 08:30 Anxiety; BREAST CA; Diverticulitis; Hyperlipidemia; Hypertension; TIA; aa5 - Immunization history:: Last tetanus immunization: < 5 years ago. - Social history:: Smoking status: Patient denies any tobacco usage or history of. - Family history:: not pertinent. - Hospitalizations: : No recent hospitalization is reported. ROS: 08:58 Constitutional: Negative for fever, chills, and weight loss, Neck: Negative for injury, rn pain, and swelling, Cardiovascular: Negative for chest pain, palpitations, and edema, Respiratory: Negative for shortness of breath, cough, wheezing, and pleuritic chest pain, Abdomen/GI: Negative for abdominal pain, nausea, vomiting, diarrhea, and constipation, MS/Extremity: Negative for deformity, + left elbow injury and skin tear Skin: + left elbow skin tear Neuro: Negative for headache, weakness, numbness, tingling, and seizure. Exam: 08:58 Constitutional: This is a well developed, well nourished patient who is awake, alert, rn and in no acute distress. Ambulatory to room without difficulty. Head/Face: Normocephalic, atraumatic. Neck: No midline tenderness Cardiovascular: Regular rate and rhythm. No pulse deficits. Respiratory: No increased work of breathing, no retractions or nasal flaring. Skin: Warm, dry, 2cm curvilinear skin tear left elbow, no active bleeding. MS/ Extremity: Pulses equal, no cyanosis. Neurovascular intact. Full, normal range of motion. Equal circumference. Neuro: Awake and alert, GCS 15, oriented to person, place, time, and situation. Cranial nerves II-XII grossly intact. Motor strength 5/5 in all extremities. Sensory grossly intact. Cerebellar exam normal. Normal gait. Vital Signs: 08:26 BP 159 / 72; Pulse 60; Resp 16 S; Temp 98.3(O); Pulse Ox 99% on R/A; Weight 65.77 kg aa5 (R); Height 5 ft. 0 in. (152.40 cm) (R); Pain 5/10; 09:10 BP 129 / 64; Pulse 62; Resp 18 S; Pulse Ox 99% on R/A; aa5 08:26 Body Mass Index 28.32 (65.77 kg, 152.40 cm) aa5 MDM: 08:36 Patient medically screened. rn 08:58 Differential diagnosis: contusion, skin tear. Data reviewed: vital signs, nurses notes, rn and as a result, I will discharge patient. Counseling: I had a detailed discussion with the patient and/or guardian regarding: the historical points, exam findings, and any diagnostic results supporting the discharge/admit diagnosis, the need for outpatient follow up, to return to the emergency department if symptoms worsen or persist or if there are any questions or concerns that arise at home. Special discussion: I discussed with the patient/guardian in detail that at this point there is no indication for admission to the hospital. It is understood, however, that if the symptoms persist or worsen the patient needs to return immediately for re-evaluation. ED course: Wound cleaned, does not open up, is a skin tear, does not require sutures. No bony tenderness and FROM, no emergent xrays needed. . 06/14 08:41 Order name: Wound Care; Complete Time: 09:04 rn Administered Medications: No medications were administered Disposition: 06/14/20 09:10 Discharged to Home. Impression: Contusion of left elbow, Skin Avulsion. - Condition is Stable. - Discharge Instructions: Skin Tear Care, Elbow Contusion. - Medication Reconciliation Form, Thank You Letter, Antibiotic Education, Prescription Opioid Use form. - Follow up: Private Physician; When: As needed; Reason: Recheck today's complaints, Re-evaluation by your physician. - Problem is new. - Symptoms have improved. Signatures: Rikki Sadler MD MD rn Calderon, Audri RN RN aa5 Corrections: (The following items were deleted from the chart) 09:19 09:10 06/14/2020 09:10 Discharged to Home. Impression: Contusion of left elbow; Skin aa5 Avulsion. Condition is Stable. Forms are Medication Reconciliation Form, Thank You Letter, Antibiotic Education, Prescription Opioid Use. Follow up: Private Physician; When: As needed; Reason: Recheck today's complaints, Re-evaluation by your physician. Problem is new. Symptoms have improved. rn
--- NOTE | 2020-06-14 09:11 | ER ---
Nurse's Notes [facility] Name: Alexa Mcintyre Age: 84 yrs Sex: Female : 1935 Arrival Date: 06/14/2020 Time: 08:07 Bed 23 Private MD: Brandon Johnson E Diagnosis: Contusion of left elbow;Skin Avulsion Presentation: 06/14 08:26 Chief complaint: Patient states: "I got up to go to the bathroom during the night and aa5 it was dark and I tripped over the vacuum film cleaner and hurt my left elbow". Laceration noted to left elbow, no active bleeding noted. 08:26 Coronavirus screen: Client denies travel out of the [place] in the last 14 days. At this aa5 time, the client does not indicate any symptoms associated with coronavirus-19. Ebola Screen: Patient negative for fever greater than or equal to 101.5 degrees Fahrenheit, and additional compatible Ebola Virus Disease symptoms. Initial Sepsis Screen: Does the patient meet any 2 criteria? No. Patient's initial sepsis screen is negative. Does the patient have a suspected source of infection? No. Patient's initial sepsis screen is negative. Risk Assessment: Do you want to hurt yourself or someone else? Patient reports no desire to harm self or others. Onset of symptoms was May 2020. 08:26 Acuity: ULICES 4 aa5 08:26 Method Of Arrival: Ambulatory aa5 Historical: - Allergies: 08:30 Sulfa (Sulfonamide Antibiotics); aa5 - Home Meds: 08:30 atorvastatin 20 mg Oral tab 1 tab once daily [Active]; lorazepam 0.5 mg Oral tab 1 tab aa5 3 times per day [Active]; metoprolol tartrate 50 mg Oral tab 1 tab 2 times per day [Active]; Plavix 75 mg Oral tab 1 tab once daily [Active]; - PMHx: 08:30 Anxiety; BREAST CA; Diverticulitis; Hyperlipidemia; Hypertension; TIA; aa5 - Immunization history:: Last tetanus immunization: < 5 years ago. - Social history:: Smoking status: Patient denies any tobacco usage or history of. - Family history:: not pertinent. - Hospitalizations: : No recent hospitalization is reported. Screenin:30 Abuse screen: Denies threats or abuse. Nutritional screening: No deficits noted. aa5 Tuberculosis screening: No symptoms or risk factors identified. Fall Risk Fall in past 12 months (25 points). Total Watson Fall Scale indicates Low Risk Score (25-44 pts). Fall prevention measures have been instituted. Side Rails Up X 2 Placed close to Nursing Station. Assessment: 08:30 General: Appears comfortable, Behavior is calm, cooperative. Pain: Complains of pain in aa5 left elbow. Neuro: Level of Consciousness is awake, alert, obeys commands, Oriented to person, place, time, situation. Cardiovascular: Patient's skin is warm and dry. Respiratory: Airway is patent Respiratory effort is even, unlabored, Respiratory pattern is regular, symmetrical. GI: No signs and/or symptoms were reported involving the gastrointestinal system. : No signs and/or symptoms were reported regarding the genitourinary system. EENT: No signs and/or symptoms were reported regarding the EENT system. Derm: Skin is pink, warm \\T\\ dry. Bruising that is dark purple, on left elbow Laceration noted to left elbow. Musculoskeletal: Range of motion: intact in all extremities. 09:15 Reassessment: Patient is alert, oriented x 3, equal unlabored respirations, skin aa5 warm/dry/pink. Vital Signs: 08:26 BP 159 / 72; Pulse 60; Resp 16 S; Temp 98.3(O); Pulse Ox 99% on R/A; Weight 65.77 kg aa5 (R); Height 5 ft. 0 in. (152.40 cm) (R); Pain 5/10; 09:10 BP 129 / 64; Pulse 62; Resp 18 S; Pulse Ox 99% on R/A; aa5 08:26 Body Mass Index 28.32 (65.77 kg, 152.40 cm) aa5 ED Course: 08:07 Patient arrived in ED. as 08:07 Brandon Johnson MD is Private Physician. as 08:26 Arm band placed on Patient placed in an exam room, on a stretcher. aa5 08:26 Patient has correct armband on for positive identification. Bed in low position. Call aa5 light in reach. Side rails up X 1. 08:31 Kaylin Lazcano RN is Primary Nurse. aa5 08:36 Rikki Sadler MD is Attending Physician. rn 08:48 Triage completed. aa5 09:00 Wound care: to skin tear to left elbow was cleaned with Hibiclens, dressed with aa5 steri-strips, non-adherent dressing and Kerlix. . 09:15 No provider procedures requiring assistance completed. Patient did not have IV access aa5 during this emergency room visit. Administered Medications: No medications were administered Outcome: 09:10 Discharge ordered by . rn 09:15 Discharged to home ambulatory. aa5 09:15 Condition: stable 09:15 Discharge instructions given to patient, Instructed on discharge instructions, follow up and referral plans. wound care, Demonstrated understanding of instructions, follow-up care, wound care. 09:19 Patient left the ED. aa5 Signatures: Laurence Goodman Roman, MD MD rn Kaylin Lazcano RN RN aa5
[2020-06-14 09:30] VITALS: BP 159/72; TEMP 98.3; O2SAT 99
== END 2020-06-14 09:19 | disposition home or self-care (01) ==
LOC: ER 08:04
DX: S51.012A Laceration without foreign body of left elbow, initial encounter (principal); W01.0XXA Fall on same level from slipping, tripping and stumbling without subsequent striking against object, initial encounter; Y93.01 Activity, walking, marching and hiking; Y92.9 Unspecified place or not applicable; Z79.01 Long term (current) use of anticoagulants; Z88.2 Allergy status to sulfonamides; Z86.73 Personal history of transient ischemic attack (TIA), and cerebral infarction without residual deficits; I10 Essential (primary) hypertension; E78.5 Hyperlipidemia, unspecified
CPT/HCPCS: 99283

== ENCOUNTER 2021-12-25 08:14 | Emergency (ER) | payer OTHER, BC ==
--- NOTE | 2021-12-25 08:59 | RAD REPORT ---
EXAM DESCRIPTION: RAD - Chest Single View - 12/25/2021 8:49 am CLINICAL HISTORY: PAIN Chest pain. COMPARISON: Abdomen 1 View (KUB) dated 05/04/2019; Chest Single View dated 05/04/2019; Chest Single View dated 09/08/2017; Chest Single View dated 09/07/2017 FINDINGS: Portable technique limits examination quality. The lungs are grossly clear. The heart is mildly enlarged in size. Moderate hiatal hernia. Right-side d venous catheter tip in the SVC.Left axillary dissection clips are present. No displaced rib fractur e.
--- NOTE | 2021-12-25 09:08 | EDPHYS ---
Physician Documentation [facility] Name: Alexa Mcintyre Age: 86 yrs Sex: Female : 1935 Arrival Date: 12/25/2021 Time: 08:17 Bed 5 Private MD: ED Physician Justin Purvis HPI: 12/25 08:37 This 86 yrs old Female presents to ER via Ambulatory with complaints of rib jl9 pain. Patient reports that she hit her ribs on her counter top accidentally. . 08:37 Onset: The symptoms/episode began/occurred 1 week(s) ago. Associated signs and jl9 symptoms: The patient has no apparent associated signs or symptoms. Modifying factors: the patient symptoms are aggravated by movement. Historical: - Allergies: 08:25 Sulfa (Sulfonamide Antibiotics); ap3 - Home Meds: 08:25 Plavix 75 mg Oral tab 1 tab once daily [Active]; metoprolol tartrate 50 mg Oral tab 1 ap3 tab 2 times per day [Active]; lorazepam 0.5 mg Oral tab 1 tab 3 times per day [Active]; atorvastatin 20 mg Oral tab 1 tab once daily [Active]; 08:25 amlodipine oral [Active]; ramipril 10 mg Oral cap 1 cap once daily [Active]; aspirin 81 ap3 mg Oral tab [Active]; mesalamine oral 1 cap 2 times per day [Active]; Folbee oral [Active]; - PMHx: 08:25 Anxiety; BREAST CA; Diverticulitis; Hyperlipidemia; Hypertension; TIA; ap3 - Immunization history:: Client reports receiving the 2nd dose of the Covid vaccine. - Social history:: Smoking status: Patient denies any tobacco usage or history of. ROS: 08:38 Constitutional: Negative for fever, chills, and weight loss, Eyes: Negative for injury, jl9 pain, redness, and discharge, ENT: Negative for injury, pain, and discharge, Neck: Negative for injury, pain, and swelling, Cardiovascular: Negative for chest pain, palpitations, and edema, Respiratory: Negative for shortness of breath, cough, wheezing, and pleuritic chest pain, Abdomen/GI: Negative for abdominal pain, nausea, vomiting, diarrhea, and constipation, Back: Negative for injury and pain, : Negative for injury, bleeding, discharge, and swelling, MS/Extremity: Negative for injury and deformity, Skin: Negative for injury, rash, and discoloration, Neuro: Negative for headache, weakness, numbness, tingling, and seizure, Psych: Negative for depression, anxiety, suicide ideation, homicidal ideation, and hallucinations, Allergy/Immunology: Negative for hives, rash, and allergies, Endocrine: Negative for neck swelling, polydipsia, polyuria, polyphagia, and marked weight changes, Hematologic/Lymphatic: Negative for swollen nodes, abnormal bleeding, and unusual bruising. 08:38 Cardiovascular: Positive for Left sided rib pain.. Exam: 08:39 Constitutional: This is a well developed, well nourished patient who is awake, alert, jl9 and in no acute distress. Head/Face: Normocephalic, atraumatic. Eyes: Pupils equal round and reactive to light, extra-ocular motions intact. Lids and lashes normal. Conjunctiva and sclera are non-icteric and not injected. Cornea within normal limits. Periorbital areas with no swelling, redness, or edema. ENT: Mucous membranes moist. Neck: Trachea midline, no thyromegaly or masses palpated, and no cervical lymphadenopathy. Supple, full range of motion without nuchal rigidity, or vertebral point tenderness. No Meningismus. Chest/axilla: Normal chest wall appearance and motion. Nontender with no deformity. No lesions are appreciated. Cardiovascular: Regular rate and rhythm with a normal S1 and S2. No gallops, murmurs, or rubs. Normal PMI, no JVD. No pulse deficits. Respiratory: Lungs have equal breath sounds bilaterally, clear to auscultation and percussion. No rales, rhonchi or wheezes noted. No increased work of breathing, no retractions or nasal flaring. Abdomen/GI: Soft, non-tender, with normal bowel sounds. No distension or tympany. No guarding or rebound. No evidence of tenderness throughout. Back: No spinal tenderness. No costovertebral tenderness. Full range of motion. Skin: Warm, dry with normal turgor. Normal color with no rashes, no lesions, and no evidence of cellulitis. MS/ Extremity: Pulses equal, no cyanosis. Neurovascular intact. Full, normal range of motion. Neuro: Awake and alert, GCS 15, oriented to person, place, time, and situation. Cranial nerves II-XII grossly intact. Motor strength 5/5 in all extremities. Sensory grossly intact. Cerebellar exam normal. Normal gait. Psych: Awake, alert, with orientation to person, place and time. Behavior, mood, and affect are within normal limits. Vital Signs: 08:23 BP 148 / 81; Pulse 61; Resp 19; Temp 97.8; Pulse Ox 98% ; Weight 63.5 kg; Height 5 ft. ap3 1 in. (154.94 cm); 08:23 Pain 6/10; ap3 09:00 BP 128 / 63; Pulse 55; Pulse Ox 97% on R/A; jg9 08:23 Body Mass Index 26.45 (63.50 kg, 154.94 cm) ap3 MDM: 08:29 Patient medically screened. jl9 08:39 Data reviewed: vital signs, nurses notes. jl9 09:06 Special discussion: Discussed findings and plan of care. Patient agrees to follow up jl9 with PCP in 1-2 days. . 12/25 08:30 Order name: XRAY Chest (1 view); Complete Time: 09:04 jl9 Administered Medications: No medications were administered Disposition: 10:35 Co-signature as Attending Physician, Justin Purvis MD I agree with the assessment and kdr plan of care. Disposition Summary: 12/25/21 09:08 Discharge Ordered Location: Home jl9 Condition: Stable jl9 Diagnosis - Sprain of ribs jl9 Followup: jl9 - With: Private Physician - When: 1 - 2 days - Reason: Recheck today's complaints, Continuance of care, Re-evaluation by your physician Discharge Instructions: - Discharge Summary Sheet jl9 - Rib Contusion jl9 Forms: - Medication Reconciliation Form jl9 - Thank You Letter jl9 - Antibiotic Education jl9 - Prescription Opioid Use jl9 Signatures: Dispatcher [employer] EDMS Justin Purvis MD MD kdr Prokisch, Amanda, RN RN Preet Recio jl9
--- NOTE | 2021-12-25 09:08 | ER ---
Nurse's Notes [facility] Name: Alexa Mcintyre Age: 86 yrs Sex: Female : 1935 Arrival Date: 12/25/2021 Time: 08:17 Bed 5 Private MD: Diagnosis: Sprain of ribs Presentation: 12/25 08:23 Chief complaint: Patient states: she fell last week, into her granite counter top. ap3 patient states she has continued left sided rib pain that is tender to lay on. patient denies pain with breathing and denies SOB. Coronavirus screen: At this time, the client does not indicate any symptoms associated with coronavirus-19. Ebola Screen: No symptoms or risks identified at this time. Initial Sepsis Screen: Does the patient meet any 2 criteria? No. Patient's initial sepsis screen is negative. Does the patient have a suspected source of infection? No. Patient's initial sepsis screen is negative. Risk Assessment: Do you want to hurt yourself or someone else? Patient reports no desire to harm self or others. Onset of symptoms was December 18, 2021. 08:23 Method Of Arrival: Ambulatory ap3 08:23 Acuity: ULICES 4 ap3 Triage Assessment: 08:27 General: Appears in no apparent distress. uncomfortable, Behavior is calm, cooperative, ap3 appropriate for age. Pain: Complains of pain in left lateral posterior chest and left lateral anterior chest and right lateral anterior chest Pain currently is 7 out of 10 on a pain scale. at worst was 10 out of 10 on a pain scale. Pain began suddenly, one week ago. Neuro: Level of Consciousness is awake, alert, obeys commands, Oriented to person, place, time, situation, Appropriate for age Gait is steady, Speech is normal. Cardiovascular: Patient's skin is warm and dry. Respiratory: Airway is patent Respiratory effort is even, unlabored, Respiratory pattern is regular, symmetrical. Historical: - Allergies: 08:25 Sulfa (Sulfonamide Antibiotics); ap3 - Home Meds: 08:25 Plavix 75 mg Oral tab 1 tab once daily [Active]; metoprolol tartrate 50 mg Oral tab 1 ap3 tab 2 times per day [Active]; lorazepam 0.5 mg Oral tab 1 tab 3 times per day [Active]; atorvastatin 20 mg Oral tab 1 tab once daily [Active]; 08:25 amlodipine oral [Active]; ramipril 10 mg Oral cap 1 cap once daily [Active]; aspirin 81 ap3 mg Oral tab [Active]; mesalamine oral 1 cap 2 times per day [Active]; Folbee oral [Active]; - PMHx: 08:25 Anxiety; BREAST CA; Diverticulitis; Hyperlipidemia; Hypertension; TIA; ap3 - Immunization history:: Client reports receiving the 2nd dose of the Covid vaccine. - Social history:: Smoking status: Patient denies any tobacco usage or history of. Screenin:29 Abuse screen: Denies threats or abuse. Nutritional screening: No deficits noted. ap3 Tuberculosis screening: No symptoms or risk factors identified. 08:34 Fall Risk Fall in past 12 months (25 points). jg9 Assessment: 08:38 General: Appears in no apparent distress. uncomfortable, Behavior is calm, cooperative. vg1 Pain: Complains of pain in Left side of ribs Pain currently is 10 out of 10 on a pain scale. Pain began x 1 week. Neuro: Level of Consciousness is awake, alert, obeys commands, Oriented to person, place, time, situation. Cardiovascular: Patient's skin is warm and dry. Respiratory: Airway is patent Respiratory effort is even, unlabored, Denies shortness of breath. GI: No signs and/or symptoms were reported involving the gastrointestinal system. : No signs and/or symptoms were reported regarding the genitourinary system. EENT: No signs and/or symptoms were reported regarding the EENT system. Derm: Bruising that is on left eye. Musculoskeletal: Circulation, motion, and sensation intact. Vital Signs: 08:23 BP 148 / 81; Pulse 61; Resp 19; Temp 97.8; Pulse Ox 98% ; Weight 63.5 kg; Height 5 ft. ap3 1 in. (154.94 cm); 08:23 Pain 6/10; ap3 09:00 BP 128 / 63; Pulse 55; Pulse Ox 97% on R/A; jg9 08:23 Body Mass Index 26.45 (63.50 kg, 154.94 cm) ap3 ED Course: 08:17 Patient arrived in ED. as 08:19 [facility] jl9 08:19 Justin Purvis MD is Attending Physician. jl9 08:25 Triage completed. ap3 08:29 Arm band placed on left wrist. ap3 08:33 Bed in low position. Call light in reach. Side rails up X 1. ap3 08:34 Chani Krishnamurthy, RN is Primary Nurse. vg1 08:51 XRAY Chest (1 view) In Process Unspecified. EDMS 09:25 No provider procedures requiring assistance completed. Patient did not have IV access iw during this emergency room visit. Administered Medications: No medications were administered Medication: 08:38 VIS not applicable for this client. vg1 Outcome: 09:08 Discharge ordered by . jl9 09:25 Discharged to home ambulatory. iw 09:25 Condition: good 09:25 Discharge instructions given to patient, Instructed on discharge instructions, follow up and referral plans. Demonstrated understanding of instructions, follow-up care. 09:29 Patient left the ED. iw Signatures: Dispatcher [employer] EDMS Laurence Goodman Irene, RN RN iw Joanna Olson RN RN ap3 Chani Krishnamurthy RN RN vg1 Saskia Gemran RN RN jg9 Linares, John jl9 Corrections: (The following items were deleted from the chart) 08:32 08:23 Chief complaint: Patient states: she fell last week, into her granite counter ap3 top. patient states she has continued right sided rib pain that is tender to lay on. patient denies pain with breathing and denies SOB. ap3 08:33 08:27 Pain: Complains of pain in right lateral anterior chest Pain currently is 7 out ap3 of 10 on a pain scale. at worst was 10 out of 10 on a pain scale. Pain began suddenly, one week ago ap3
[2021-12-25 09:40] VITALS: TEMP 97.8
[2021-12-25 09:42] VITALS: BP 128/63; O2SAT 97
== END 2021-12-25 09:29 | disposition home or self-care (01) ==
LOC: ER 08:14
DX: S23.41XA Sprain of ribs, initial encounter (principal); I10 Essential (primary) hypertension; Z86.73 Personal history of transient ischemic attack (TIA), and cerebral infarction without residual deficits; Z79.01 Long term (current) use of anticoagulants; Z79.82 Long term (current) use of aspirin; Z88.2 Allergy status to sulfonamides
CPT/HCPCS: 71045; 99283

== ENCOUNTER 2022-09-29 09:46 | Emergency (ER) | payer OTHER, BC ==
--- NOTE | 2022-09-29 10:50 | RAD REPORT ---
EXAM DESCRIPTION: RAD - Foot Left 3 View - 09/29/2022 10:14 am CLINICAL HISTORY: foot pain, injury COMPARISON: No comparisons FINDINGS/IMPRESSION: Lucency present at the anterior process of the calcaneus on the lateral view. N o corresponding abnormality on the frontal or oblique view. If fracture at this location is considere d unlikely. CT could confirm if clinically indicated. Remote second metatarsal fracture which is heal ed. Status post ORIF at the ankle.
--- NOTE | 2022-09-29 11:50 | RAD REPORT ---
EXAM DESCRIPTION: CT - Foot Left Wo Con - 09/29/2022 11:11 am CLINICAL HISTORY: foot pain, injury COMPARISON: No comparisons FINDINGS: CT scan of the left foot was obtained without contrast. Remote second metatarsal fracture. No acute fracture identified. No malalignment. Skin thickening. Pl ate and screw hardware in the distal fibula which is intact. Lag screws present in the medial malleol us. There are degenerative changes at the tibiotalar joint that are mild. Calcaneal spurring is prese nt. IMPRESSION: No left foot fracture or malalignment identified.
--- NOTE | 2022-09-29 11:56 | EDPHYS ---
Physician Documentation [facility] Name: Alexa Mcintyre Age: 86 yrs Sex: Female : 1935 Arrival Date: 09/29/2022 Time: 09:46 Bed 12 Private MD: ED Physician Duane Lozada HPI: 09/29 09:54 This 86 yrs old Female presents to ER via Ambulatory with complaints of Foot Injury. jmm 09:54 The patient presents with an injury, pain. Onset: The symptoms/episode began/occurred jmm acutely, 1.5 week(s) ago. Modifying factors: The symptoms are alleviated by nothing. the symptoms are aggravated by movement, weight bearing. This is an 86/f with a history of hlp, htn that presents to the ED with complaints of left foot pain which occurred after twisting her foot while gardening. Denies other injury. Patient continues to have pain and swelling. Localized the pain to the left dorsal surface. . Historical: - Allergies: 10:06 Sulfa (Sulfonamide Antibiotics); ss - PMHx: 10:06 Anxiety; BREAST CA; Diverticulitis; Hyperlipidemia; Hypertension; TIA; ss - Immunization history:: Client reports receiving the 2nd dose of the Covid vaccine. - Social history:: Smoking status: Patient denies any tobacco usage or history of. ROS: 09:54 Constitutional: Negative for fever, chills, and weight loss, Cardiovascular: Negative jmm for chest pain, palpitations, and edema, Respiratory: Negative for shortness of breath, cough, wheezing, and pleuritic chest pain. 09:54 MS/extremity: Positive for injury or acute deformity, pain, swelling. 09:54 All other systems are negative. Exam: 09:54 Constitutional: This is a well developed, well nourished patient who is awake, alert, jmm and in no acute distress. Head/Face: atraumatic. Eyes: EOMI, no conjunctival erythema appreciated ENT: Moist Mucus Membranes Neck: Trachea midline, Supple Chest/axilla: Normal chest wall appearance and motion. Cardiovascular: Regular rate and rhythm. No edema appreciated Respiratory: Normal respirations, no respiratory distress appreciated Abdomen/GI: Non distended Back: Normal ROM Skin: General appearance color normal 09:54 Musculoskeletal/extremity: swelling noted to the left foot, dorsum ttp, compartments soft, < 2 sec dist cap refill. 09:54 Skin: Appearance: Color: normal in color. 09:54 Neuro: Motor: is normal. 09:54 Psych: Behavior/mood is pleasant, cooperative. Vital Signs: 10:03 Pulse 71; Resp 17; Temp 97.9(TE); Pulse Ox 98% on R/A; Weight 61.23 kg; Height 5 ft. 0 ss in. ; Pain 3/10; 10:06 BP 137 / 79; ss 10:03 Body Mass Index 26.37 (61.23 kg, 152.4 cm) ss 10:03 Pain Scale: Adult ss MDM: 09:54 Patient medically screened. [facility] 11:55 Differential diagnosis: open fracture, strain. Data reviewed: vital signs, nurses jmm notes, radiologic studies, CT scan. Counseling: I had a detailed discussion with the patient and/or guardian regarding: the historical points, exam findings, and any diagnostic results supporting the discharge/admit diagnosis, radiology results, the need for outpatient follow up, to return to the emergency department if symptoms worsen or persist or if there are any questions or concerns that arise at home. 09/29 09:54 Order name: Foot Left 3 View XRAY; Complete Time: 10:51 jm 09/29 11:00 Order name: Foot Left Wo Con; Complete Time: 11:53 EDMS 09/29 11:53 Order name: Misc. Order: orthoshoe; Complete Time: 12:21 [facility] Administered Medications: No medications were administered Disposition: 12:56 Co-signature as Attending Physician, Duane Lozada DO I was immediately available on-site ms3 in the Emergency Department for consultation in the care of the patient. Disposition Summary: 09/29/22 11:55 Discharge Ordered Location: Home [facility] Condition: Stable [facility] Diagnosis - Other sprain of left foot [facility] Followup: [facility] - With: Trevor Miller DPM - When: 2 - 3 days - Reason: Recheck today's complaints, Continuance of care, Re-evaluation by your physician Discharge Instructions: - Discharge Summary Sheet [facility] - Foot Sprain m - RICE Therapy for Routine Care of Injuries jm Forms: - Medication Reconciliation Form [facility] - Thank You Letter [facility] - Antibiotic Education m - Prescription Opioid Use [facility] Prescriptions: - orphenadrine citrate 100 mg Oral Tablet Sustained Release - take 1 tablet by ORAL route 2 times per day As needed; 20 tablet; Refills: 0, efrain Product Selection Permitted Signatures: Dispatcher [employer] Bimal Casas PA PA jmm Smirch, Shelby, RN RN ss Duane Lozada DO DO ms3 Corrections: (The following items were deleted from the chart) 11:00 10:55 CT LEFT FOOT WO CONTRAST ordered. EDMS EDMS
--- NOTE | 2022-09-29 11:56 | ER ---
Nurse's Notes [facility] Name: Alexa Mcintyre Age: 86 yrs Sex: Female : 1935 Arrival Date: 09/29/2022 Time: 09:46 Bed 12 Private MD: Diagnosis: Other sprain of left foot Presentation: 09/29 10:03 Chief complaint: Patient states: L foot pain and swelling that began Tuesday. ss Coronavirus screen: Client denies travel out of the [place] in the last 14 days. Ebola Screen: Patient denies exposure to infectious person. Patient denies travel to an Ebola-affected area in the 21 days before illness onset. Initial Sepsis Screen: Does the patient meet any 2 criteria? No. Patient's initial sepsis screen is negative. Does the patient have a suspected source of infection? No. Patient's initial sepsis screen is negative. Risk Assessment: Do you want to hurt yourself or someone else? Patient reports no desire to harm self or others. Onset of symptoms was September 26, 2022. 10:03 Method Of Arrival: Ambulatory ss 10:03 Acuity: ULICES 3 ss Historical: - Allergies: 10:06 Sulfa (Sulfonamide Antibiotics); ss - PMHx: 10:06 Anxiety; BREAST CA; Diverticulitis; Hyperlipidemia; Hypertension; TIA; ss - Immunization history:: Client reports receiving the 2nd dose of the Covid vaccine. - Social history:: Smoking status: Patient denies any tobacco usage or history of. Screenin:19 [facility] ED Fall Risk Assessment (Adult) History of falling in the last 3 months, ss including since admission No falls in past 3 months (0 pts). Abuse screen: Denies threats or abuse. Denies injuries from another. Nutritional screening: No deficits noted. Tuberculosis screening: Never had TB. Assessment: 10:19 General: Appears in no apparent distress. comfortable, Behavior is calm, cooperative. ss Pain: Complains of pain in dorsum of right foot Pain currently is 3 out of 10 on a pain scale. Quality of pain is described as aching, tender, Is continuous. Neuro: Level of Consciousness is awake, alert, obeys commands, Oriented to person, place, time, situation. Cardiovascular: Capillary refill is > 3 seconds in bilateral toes. Respiratory: Airway is patent Respiratory effort is even, unlabored, Respiratory pattern is regular, symmetrical. Derm: Skin is intact, is healthy with good turgor, Skin is dry, Skin is pink, warm \T\ dry. normal. 10:19 Musculoskeletal: Swelling present in dorsum of right foot. ss Vital Signs: 10:03 Pulse 71; Resp 17; Temp 97.9(TE); Pulse Ox 98% on R/A; Weight 61.23 kg; Height 5 ft. 0 ss in. ; Pain 3/10; 10:06 BP 137 / 79; ss 10:03 Body Mass Index 26.37 (61.23 kg, 152.4 cm) ss 10:03 Pain Scale: Adult ss ED Course: 09:48 Patient arrived in ED. rg4 09:51 Duane Lozada DO is Attending Physician. ms3 09:51 Bimal Templeton PA is PHCP. [facility] 10:05 Triage completed. ss 10:06 Arm band placed on right wrist. ss 10:16 Foot Left 3 View XRAY In Process Unspecified. EDMS 10:19 Rama Potter RN is Primary Nurse. ss 10:23 Patient has correct armband on for positive identification. ss 11:13 Foot Left Wo Con In Process Unspecified. EDMS 11:55 Trevor Miller DPM is Referral Physician. [facility] 12:21 No provider procedures requiring assistance completed. Patient did not have IV access ss during this emergency room visit. Ortho shoe applied to left foot. Administered Medications: No medications were administered Medication: 10:19 VIS not applicable for this client. ss Outcome: 11:55 Discharge ordered by . [facility] 12:21 Discharged to home ambulatory. ss 12:21 Condition: good 12:21 Discharge instructions given to patient, Instructed on discharge instructions, follow up and referral plans. medication usage, Demonstrated understanding of instructions, follow-up care, medications, Prescriptions given X 1. 12:21 Patient left the ED. Signatures: Dispatcher [employer] EDMS Bimal Templeton PA PA jmm Smirch, Shelby, RN RN Mallory Sales rg4 Duane Lozada DO DO ms3 Corrections: (The following items were deleted from the chart) 10:22 10:19 Cardiovascular: Capillary refill < 3 seconds is brisk in bilateral fingers ss ss
[2022-09-29 12:25] VITALS: TEMP 97.9; O2SAT 98
[2022-09-29 12:26] VITALS: BP 137/79
== END 2022-09-29 12:21 | disposition home or self-care (01) ==
LOC: ER 09:46
DX: S93.692A Other sprain of left foot, initial encounter (principal); Z88.2 Allergy status to sulfonamides
CPT/HCPCS: 73700

== ENCOUNTER 2023-04-29 19:52 | Inpatient (IN) | payer OTHER, BC ==
[2023-04-29 21:09] LABS: Absolute Lymphocytes (CBC) 0.3 K/uL (0.7-4.9); Hematocrit 30.3 % (36.0-45.0); Lymphocytes % 2.5 % (15.3-44.8); MCV 87.8 fL (80-100); MPV 7.7 fL (7.6-11.3); Platelets 214 thou/uL (152-406); RBC Red Blood Cell Count 3.45 M/uL (3.86-4.86)
[2023-04-29 21:14] LABS: Protime INR 1.13
[2023-04-29] MEDS ORDERED: Meropenem 1000 MG/VIAL IV ONE (21:15)
[2023-04-29] MEDS ORDERED: NA CHLORIDE 0.9% 1,000 ML ONE (21:15)
[2023-04-29] MEDS ORDERED: NA CHLORIDE 0.9% 500 ML ONE (21:15)
[2023-04-29] MEDS ORDERED: NA CHLORIDE 0.9% 100 ML ONE (21:16)
[2023-04-29 21:17] LABS: Specific Gravity 1.012 (1.005-1.030); Urine Bacteria <20 /HPF (<20); Urine Bilirubin NEGATIVE (Negative); Urine Blood 1+ (Negative); Urine Clarity Extremely Turbid (Clear); Urine Color Colorless (Yellow); Urine Glucose NEGATIVE (Negative); Urine Mucus Slight /HPF (None Seen); Urine Protein 1+ (Negative); Urine Urobilinogen Normal (Normal); Urine WBC Clump Occasional /HPF (None Seen); Urine pH 5.5 (5.0-7.0)
--- NOTE | 2023-04-29 21:29 | RAD REPORT ---
EXAM DESCRIPTION: RAD - Chest Single View - 04/29/2023 9:20 pm CLINICAL HISTORY: COUGH Chest pain. COMPARISON: Chest Single View dated 12/25/2021; Abdomen 1 View (KUB) dated 05/04/2019; Chest Single Vi ew dated 05/04/2019; Chest Single View dated 09/08/2017 FINDINGS: Portable technique limits examination quality. The lungs are grossly clear. The heart is moderately enlarged. Large hiatal hernia.Right-sided venous catheter its tip in the SVC. Left axillary dissection clips. IMPRESSION: No acute intrathoracic process suspected. Large hiatal hernia.
[2023-04-29 21:40] LABS: Albumin 2.5 g/dL (3.4-5.0); Bilirubin Direct 0.2 mg/dL (0-0.2); Bilirubin Indirect, Calculated 0.4 mg/dL (0.2-0.8); Bilirubin Total 0.6 mg/dL (0.2-1.0); Magnesium 1.2 mg/dL (1.6-2.4); Potassium 3.5 mEq/L (3.5-5.1); Protein, Total 7.1 g/dL (6.4-8.2); Thyroid Stimulating Hormone 2.53 uIU/mL (0.358-3.740); Troponin High Sensitivity 11.8 pg/mL (<58.9)
--- NOTE | 2023-04-29 22:03 | EDPHYS ---
Physician Documentation [facility] Name: Alexa Mcintyre Age: 87 yrs Sex: Female : 1935 Arrival Date: 04/29/2023 Time: 19:52 Bed 13 Private MD: Brandon Johnson E ED Physician Leonardo Oliveros HPI: 04/29 20:45 This 87 yrs old Female presents to ER via Ambulatory with complaints of davon Urinary Problem. 20:45 The patient presents with abdominal pain in the lower abdomen. Onset: The davon symptoms/episode began/occurred 2 day(s) ago. The patient presents with urinary symptoms, dysuria, frequency. Onset: The symptoms/episode began/occurred 2 day(s) ago. Modifying factors: The symptoms are alleviated by nothing, the symptoms are aggravated by urinating. Associated signs and symptoms: The patient has no apparent associated signs or symptoms. Severity of symptoms: At their worst the symptoms were mild, in the emergency department the symptoms are unchanged. The patient is not sexually active. Historical: - Allergies: 20:15 Sulfa (Sulfonamide Antibiotics); kd3 - PMHx: 20:15 Anxiety; BREAST CA; Hyperlipidemia; Diverticulitis; Hypertension; TIA; kd3 - Immunization history:: Adult Immunizations up to date. - Social history:: Smoking status: Patient denies any tobacco usage or history of. - Family history:: not pertinent. ROS: 20:45 Constitutional: Negative for fever, chills, and weight loss, Eyes: Negative for injury, davon pain, redness, and discharge, ENT: Negative for injury, pain, and discharge, Neck: Negative for injury, pain, and swelling, Cardiovascular: Negative for chest pain, palpitations, and edema, Respiratory: Negative for shortness of breath, cough, wheezing, and pleuritic chest pain, Back: Negative for injury and pain, : Negative for injury, bleeding, discharge, and swelling, MS/Extremity: Negative for injury and deformity, Skin: Negative for injury, rash, and discoloration, Neuro: Negative for headache, weakness, numbness, tingling, and seizure, Psych: Negative for depression, anxiety, suicide ideation, homicidal ideation, and hallucinations, Endocrine: Negative for neck swelling, polydipsia, polyuria, polyphagia, and marked weight changes, Hematologic/Lymphatic: Negative for swollen nodes, abnormal bleeding, and unusual bruising, 20:45 Abdomen/GI: Positive for abdominal pain, of the suprapubic area, Exam: 20:45 Constitutional: This is a well developed, well nourished patient who is awake, alert, davon and in no acute distress. Head/Face: Normocephalic, atraumatic. Eyes: Pupils equal round and reactive to light, extra-ocular motions intact. Lids and lashes normal. Conjunctiva and sclera are non-icteric and not injected. Cornea within normal limits. Periorbital areas with no swelling, redness, or edema. ENT: Nares patent. No nasal discharge, no septal abnormalities noted. Tympanic membranes are normal and external auditory canals are clear. Oropharynx with no redness, swelling, or masses, exudates, or evidence of obstruction, uvula midline. Mucous membranes moist. Neck: Trachea midline, no thyromegaly or masses palpated, and no cervical lymphadenopathy. Supple, full range of motion without nuchal rigidity, or vertebral point tenderness. No Meningismus. Chest/axilla: Normal chest wall appearance and motion. Nontender with no deformity. No lesions are appreciated. Respiratory: Lungs have equal breath sounds bilaterally, clear to auscultation and percussion. No rales, rhonchi or wheezes noted. No increased work of breathing, no retractions or nasal flaring. Back: No spinal tenderness. No costovertebral tenderness. Full range of motion. Female : Normal external genitalia. Skin: Warm, dry with normal turgor. Normal color with no rashes, no lesions, and no evidence of cellulitis. MS/ Extremity: Pulses equal, no cyanosis. Neurovascular intact. Full, normal range of motion. Neuro: Awake and alert, GCS 15, oriented to person, place, time, and situation. Cranial nerves II-XII grossly intact. Motor strength 5/5 in all extremities. Sensory grossly intact. Cerebellar exam normal. Normal gait. Psych: Awake, alert, with orientation to person, place and time. Behavior, mood, and affect are within normal limits. 20:45 Cardiovascular: Rate: normal, Rhythm: irregular, Pulses: Pulses are 4+ in bilateral radial, brachial, femoral, popliteal, posterior tibial and and dorsalis pedis arteries.. Heart sounds: normal, Edema: is not appreciated, JVD: is not appreciated, 20:45 ECG was reviewed by the Attending Physician. Vital Signs: 20:12 BP 166 / 101; Pulse 53; Resp 18; Temp 98.6(O); Pulse Ox 98% on R/A; Weight 62.14 kg; kd3 20:17 BP 144 / 83; Pulse 120; Resp 18; Pulse Ox 96% on R/A; km8 20:30 BP 127 / 75; Pulse 96; Resp 18; Pulse Ox 94% on R/A; km8 20:45 BP 122 / 73; Pulse 89; Resp 18; Pulse Ox 94% on R/A; km8 21:00 BP 115 / 72; Pulse 85; Resp 18; Pulse Ox 94% on R/A; km8 21:15 BP 124 / 73; Pulse 84; Resp 18; Pulse Ox 94% on R/A; km8 22:00 BP 127 / 86; Pulse 82; Resp 21; Pulse Ox 97% on R/A; km8 23:00 BP 117 / 63; Pulse 63; Resp 24; Pulse Ox 91% on R/A; km8 1209 00:00 BP 112 / 60; Pulse 67; Resp 22; Pulse Ox 91% on R/A; km8 [place] Coma Score: 04/29 20:17 Eye Response: spontaneous(4). Motor Response: obeys commands(6). Verbal Response: km8 oriented(5). Total: 15. MDM: 20:05 Patient medically screened. [facility] 20:49 Data reviewed: vital signs, nurses notes, lab test result(s), EKG, radiologic studies, [facility] CT scan, plain films. Consideration of Admission/Observation Patient was admitted/placed on observation. I considered the following discharge prescriptions or medication management in the emergency department Medications were administered in the Emergency Department. See JUL. 04/29 20:33 Order name: Basic Metabolic Panel; Complete Time: 21:53 [facility] 04/29 20:33 Order name: CBC with Diff [facility] 04/29 20:33 Order name: LFT's; Complete Time: 21:53 [facility] 04/29 20:33 Order name: Magnesium; Complete Time: 21:53 [facility] 04/29 20:33 Order name: NT PRO-BNP; Complete Time: 21:53 [facility] 04/29 20:33 Order name: PT-INR; Complete Time: 21:31 [facility] 04/29 20:33 Order name: Troponin HS; Complete Time: 21:53 [facility] 04/29 20:33 Order name: Lipase; Complete Time: 21:53 [facility] 04/29 20:33 Order name: Blood Culture Adult (2) [facility] 04/29 20:33 Order name: Lactate w/ 2H reflex if indic.; Complete Time: 21:53 [facility] 04/29 20:33 Order name: TSH; Complete Time: 21:53 [facility] 04/29 20:54 Order name: Urinalysis w/ reflexes; Complete Time: 21:53 [facility] 04/29 21:11 Order name: CBC Smear Scan [facility] 04/29 21:35 Order name: Urine Culture [facility] 04/29 22:56 Order name: Urinalysis w/ reflexes [facility] 04/29 22:56 Order name: CBC with Automated Diff [facility] 04/29 22:56 Order name: CBC with Automated Diff [facility] 04/29 22:56 Order name: Comprehensive Metabolic Panel [facility] 04/29 22:56 Order name: Comprehensive Metabolic Panel [facility] 04/29 20:33 Order name: XRAY Chest (1 view); Complete Time: 21:53 [facility] 04/29 20:37 Order name: CT Abd/Pelvis - IV Contrast Only [facility] 04/29 20:33 Order name: EKG; Complete Time: 20:33 [facility] 04/29 20:33 Order name: Cardiac monitoring; Complete Time: 20:34 [facility] 04/29 20:33 Order name: EKG - Nurse/Tech; Complete Time: 20:34 [facility] 04/29 20:33 Order name: IV Saline Lock; Complete Time: 20:56 [facility] 04/29 20:33 Order name: Labs collected and sent; Complete Time: 20:56 [facility] 04/29 20:33 Order name: O2 Per Protocol; Complete Time: 20:34 [facility] 04/29 20:33 Order name: O2 Sat Monitoring; Complete Time: 20:34 [facility] EC:45 Rate is 95 beats/min. Rhythm is irregular. QRS [place] is Normal. QRS interval is normal. davon QT interval is normal. No Q waves. T waves are Normal. No ST changes noted. Clinical impression: 2nd degree heart block and No evidence of ischemia. Interpreted by me. Reviewed by me. Administered Medications: 21:14 Drug: Meropenem IV 1 grams IV at per protocol once; (mix in NS 100 mL) Route: IV; Rate: km8 per protocol; Site: right forearm; 21:55 Follow up: IV Status: Completed infusion; IV Intake: 100ml 21:15 Drug: NS 0.9% IV 500 ml IV at bolus once Route: IV; Rate: bolus; Site: right wrist; km8 23:56 Follow up: IV Status: Completed infusion; IV Intake: 500ml 21:15 Drug: NS 0.9% IV 1000 ml IV at 125 ml/hr continuous Route: IV; Rate: 125 ml/hr; Site: [facility] right forearm; 04/30 00:35 Follow up: IV Status: Infusion continued upon admission 8 04/29 22:12 Drug: Magnesium Sulfate IVPB 2 grams IVPB once over 2 hrs Route: IVPB; Infused Over: 2 km8 hrs; Site: right forearm; 23:56 Follow up: IV Status: Completed infusion Disposition Summary: 04/29/23 22:02 Hospitalization Ordered Notes: Hospitalization Status: Inpatient Admission davon Provider: Philly Santamaria cha [facility] davon Condition: Stable davon Problem: new davon Symptoms: have improved davon Bed/Room Type: Standard davon Room Assignment: 402(04/29/23 23:20) [facility] Diagnosis - Abdominal tenderness davon - Elevated white blood cell count davon - UTI/ Urinary tract infection, site not specified davon - Anemia, unspecified davon - Hypomagnesemia davon - Congenital hiatus hernia - large davon - Other specified heart block - MOBITZ 1 davon Forms: - Medication Reconciliation Form davon - SBAR form davon - Leadership Thank You Letter davon Signatures: Dispatcher [employer] Leonardo Bonilla MD MD cha Doucette, Kyli RN RN kd3 Hannah Nunn 12 Suha Bajwa RN RN [id number] Corrections: (The following items were deleted from the chart) 23:20 22:02 davon [id number]
--- NOTE | 2023-04-29 22:03 | ER ---
Nurse's Notes [facility] Name: Alexa Mcintyre Age: 87 yrs Sex: Female : 1935 Arrival Date: 04/29/2023 Time: 19:52 Bed 13 Private MD: Brandon Johnson E Diagnosis: Abdominal tenderness;Elevated white blood cell count;UTI/ Urinary tract infection, site not specified;Anemia, unspecified;Hypomagnesemia;Congenital hiatus hernia-large;Other specified heart block-MOBITZ 1 Presentation: 04/29 20:12 Chief complaint: Patient states: I have had issues with my urine for a couple weeks. kd3 About a week and a half ago i went to my doctor who told me nothing was wrong. My urine is cloudy and my kidneys hurt and i feel ill and fatigued. I do not feel any pain when i urinate tho. Coronavirus screen: Vaccine status: Patient reports receiving the 2nd dose of the covid vaccine. Ebola Screen: No symptoms or risks identified at this time. Initial Sepsis Screen: Does the patient meet any 2 criteria? No. Patient's initial sepsis screen is negative. Does the patient have a suspected source of infection? No. Patient's initial sepsis screen is negative. Risk Assessment: Do you want to hurt yourself or someone else? Patient reports no desire to harm self or others. Onset of symptoms was April 29, 2023. 20:12 Method Of Arrival: Ambulatory kd3 20:12 Acuity: ULICES 3 kd3 Triage Assessment: 20:15 General: Appears in no apparent distress. Behavior is calm, cooperative. Pain: kd3 Complains of pain in left low back and right low back. Neuro: Level of Consciousness is awake, alert, obeys commands, Oriented to person, place, time, situation. Respiratory: Airway is patent Trachea midline Respiratory effort is even, unlabored, Respiratory pattern is regular, symmetrical. Historical: - Allergies: 20:15 Sulfa (Sulfonamide Antibiotics); kd3 - PMHx: 20:15 Anxiety; BREAST CA; Hyperlipidemia; Diverticulitis; Hypertension; TIA; kd3 - Immunization history:: Adult Immunizations up to date. - Social history:: Smoking status: Patient denies any tobacco usage or history of. - Family history:: not pertinent. Screenin:17 [facility] ED Fall Risk Assessment (Adult) History of falling in the last 3 months, km8 including since admission No falls in past 3 months (0 pts) Confusion or Disorientation No (0 pts) Intoxicated or Sedated No (0 pts) Impaired Gait No (0 pts) Mobility Assist Device Used No (0 pt) Altered Elimination No (0 pt) Score/Fall Risk Level 0 - 2 = Low Risk Oriented to surroundings, Maintained a safe environment, Educated pt \T\ family on fall prevention, incl call for assistance when getting out of bed, Assessed \T\ reinforced patient's understanding of fall precautions. Abuse screen: Denies threats or abuse. Denies injuries from another. Nutritional screening: No deficits noted. Tuberculosis screening: No symptoms or risk factors identified. Assessment: 20:17 General: Appears in no apparent distress. uncomfortable, Behavior is calm, cooperative, km8 appropriate for age. Pain: Complains of pain in pain with urination Quality of pain is described as burning, Is intermittent. Neuro: Sanchez Agitation-Sedation Scale (RASS): 0 - Alert and Calm Level of Consciousness is awake, alert, obeys commands, Oriented to person, place, time, situation. Cardiovascular: Denies chest pain, shortness of breath, Capillary refill < 3 seconds Patient's skin is warm and dry. Respiratory: Airway is patent Respiratory effort is even, unlabored, Respiratory pattern is regular, symmetrical. GI: No signs and/or symptoms were reported involving the gastrointestinal system. : Reports burning with urination. EENT: No signs and/or symptoms were reported regarding the EENT system. Derm: Skin is intact, is healthy with good turgor, Skin is dry, Skin is pink, warm \T\ dry. normal, Skin temperature is warm. Musculoskeletal: No signs and/or symptoms reported regarding the musculoskeletal system. Range of motion: intact in all extremities. 21:22 Reassessment: Patient appears in no apparent distress at this time. No changes from km8 previously documented assessment. Patient and/or family updated on plan of care and expected duration. Pain level reassessed. Patient is alert, oriented x 3, equal unlabored respirations, skin warm/dry/pink. 22:15 Reassessment: Patient appears in no apparent distress at this time. No changes from km8 previously documented assessment. Patient and/or family updated on plan of care and expected duration. Pain level reassessed. Patient is alert, oriented x 3, equal unlabored respirations, skin warm/dry/pink. 23:00 Reassessment: Patient appears in no apparent distress at this time. Patient and/or [facility] family updated on plan of care and expected duration. Pain level reassessed. Patient is alert, oriented x 3, equal unlabored respirations, skin warm/dry/pink. Patient states feeling better. Patient states symptoms have improved. 23:51 General: attempted report to 4th floor; KARON Juarez unavailable at this time; will call [facility] back. 04/30 00:01 Reassessment: Patient appears in no apparent distress at this time. No changes from [facility] previously documented assessment. Patient and/or family updated on plan of care and expected duration. Pain level reassessed. Patient is alert, oriented x 3, equal unlabored respirations, skin warm/dry/pink. Vital Signs: 04/29 20:12 BP 166 / 101; Pulse 53; Resp 18; Temp 98.6(O); Pulse Ox 98% on R/A; Weight 62.14 kg; kd3 20:17 BP 144 / 83; Pulse 120; Resp 18; Pulse Ox 96% on R/A; km8 20:30 BP 127 / 75; Pulse 96; Resp 18; Pulse Ox 94% on R/A; km8 20:45 BP 122 / 73; Pulse 89; Resp 18; Pulse Ox 94% on R/A; km8 21:00 BP 115 / 72; Pulse 85; Resp 18; Pulse Ox 94% on R/A; km8 21:15 BP 124 / 73; Pulse 84; Resp 18; Pulse Ox 94% on R/A; km8 22:00 BP 127 / 86; Pulse 82; Resp 21; Pulse Ox 97% on R/A; km8 23:00 BP 117 / 63; Pulse 63; Resp 24; Pulse Ox 91% on R/A; km8 04/30 00:00 BP 112 / 60; Pulse 67; Resp 22; Pulse Ox 91% on R/A; km8 Maspeth Coma Score: 04/29 20:17 Eye Response: spontaneous(4). Motor Response: obeys commands(6). Verbal Response: km8 oriented(5). Total: 15. ED Course: 19:57 Patient arrived in ED. es 19:57 Brandon Johnson MD is Private Physician. es 20:04 Leonardo Oliveros MD is Attending Physician. davon 20:15 Triage completed. kd3 20:15 Arm band placed on right wrist. kd3 20:17 Suha Bajwa, KARON is Primary Nurse. km8 20:17 Patient has correct armband on for positive identification. Bed in low position. Call km8 light in reach. Side rails up X 1. Pulse ox on. NIBP on. Door closed. Noise minimized. Warm blanket given. 20:17 Patient maintains SpO2 saturation greater than 95% on room air. km8 20:19 No provider procedures requiring assistance completed. km8 20:25 Missed attempt(s): 20 gauge in right forearm. Bleeding controlled, band aid applied, km8 catheter tip intact. 20:56 Troponin HS Sent. km8 20:56 PT-INR Sent. km8 20:56 NT PRO-BNP Sent. km8 20:56 Magnesium Sent. km8 20:56 LFT's Sent. km8 20:56 CBC with Diff Sent. km8 20:56 Basic Metabolic Panel Sent. km8 20:56 Lipase Sent. km8 20:56 Blood Culture Adult (2) Sent. km8 20:56 Lactate w/ 2H reflex if indic. Sent. km8 20:56 TSH Sent. km8 20:57 Urinalysis w/ reflexes Sent. km8 20:57 Inserted saline lock: 20 gauge in right forearm, using aseptic technique. Blood km8 collected. 21:21 XRAY Chest (1 view) In Process Unspecified. EDMS 22:00 Philly Santamaria MD is Hospitalizing Provider. [facility] 22:04 CT Abd/Pelvis - IV Contrast Only In Process Unspecified. EDMS 23:16 Provided Education on: admission process. km8 23:16 Patient admitted, IV remains in place. km8 Administered Medications: 21:14 Drug: Meropenem IV 1 grams IV at per protocol once; (mix in NS 100 mL) Route: IV; Rate: km8 per protocol; Site: right forearm; 21:55 Follow up: IV Status: Completed infusion; IV Intake: 100ml km8 21:15 Drug: NS 0.9% IV 500 ml IV at bolus once Route: IV; Rate: bolus; Site: right wrist; km8 23:56 Follow up: IV Status: Completed infusion; IV Intake: 500ml km8 21:15 Drug: NS 0.9% IV 1000 ml IV at 125 ml/hr continuous Route: IV; Rate: 125 ml/hr; Site: [facility] right forearm; 04/30 00:35 Follow up: IV Status: Infusion continued upon admission [facility] 04/29 22:12 Drug: Magnesium Sulfate IVPB 2 grams IVPB once over 2 hrs Route: IVPB; Infused Over: 2 km8 hrs; Site: right forearm; 23:56 Follow up: IV Status: Completed infusion 8 Medication: 20:17 VIS not applicable for this client. km8 Intake: 21:55 IV: 100ml; Total: 100ml. 23:56 IV: 500ml; Total: 600ml. km8 Outcome: 22:02 Decision to Hospitalize by Provider. davon 04/30 00:34 Admitted to Med/surg accompanied by tech, via stretcher, room 402, with chart, Report km8 called to KARON Juarez Condition: good 00:35 Discharge instructions given to patient, Instructed on the need for admit, Demonstrated km8 understanding of instructions, 00:56 Patient left the ED. [facility] Signatures: Dispatcher [employer] Leonardo Bonilla MD MD cha Salyer, Edna es Doucette, Kyli RN RN kd3 Suha Bajwa RN RN km8 Corrections: (The following items were deleted from the chart) 04/29 21:15 21:14 Meropenem IV 1 grams IV at per protocol in left antecubital 8 km8 21:15 21:15 NS 0.9% IV 1000 ml IV at 125 ml/hr in left antecubital 8 8
[2023-04-29 22:08] LABS: Blood Morphology Comment NOT SEEN (NOT SEEN); Platelet Estimate ADEQ; White Blood Cell Scan OK (OK)
--- NOTE | 2023-04-29 22:13 | RAD REPORT ---
EXAM DESCRIPTION: CTAbdomen Pelvis W Contrast - 04/29/2023 10:02 pm CLINICAL HISTORY: Abdominal pain. ABD PAIN COMPARISON: Abdomen Pelvis W Contrast dated 07/01/2017; Abdomen Pelvis W Contrast dated 06/26/2017; Abdomen Pelvis W Contrast dated 10/20/2016; CT ABD PELVIS W CONTRAST dated 04/30/2015 TECHNIQUE: Biphasic CT imaging of the abdomen and pelvis was performed with 100 ml non-ionic IV cont rast. All CT scans are performed using dose optimization technique as appropriate and may include automated exposure control or mA/KV adjustment according to patient size. FINDINGS: Mild linear atelectasis left lung base.Large hiatal hernia is present. Numerous small cysts are scattered throughout the liver parenchyma. Innumerable cysts are also presen t involving both kidneys. Findings likely indicate polycystic kidney disease. No bowel obstruction, free air, free fluid or abscess. Prominent colonic diverticulosis is noted with out diverticulitis. The appendix is normal. No evidence of significant lymphadenopathy. Mild lumbar degenerative changes. IMPRESSION: No acute intra-abdominal or pelvic finding. Large hiatal hernia with the majority of the stomach intrathoracic. Full assessment of the stomach is limited due to distortion of normal anatomy. Chronic volvulus is possible. Polycystic kidney disease. Significant diverticulosis coli without diverticulitis.
[2023-04-29] MEDS ORDERED: Magnesium Sulfate 2gm IVPB 2 G/50 ML BAG IV ONE (22:18)
[2023-04-29] MEDS ORDERED: ONDANSETRON 4 MG/2 ML VIAL IV PRN (22:51)
[2023-04-29] MEDS ORDERED: ACETAMINOPHEN 500 MG TAB PO PRN (22:51)
--- NOTE | 2023-04-29 23:00 | P.HP ---
Certification for Inpatient Patient admitted to: Inpatient With expected LOS: >2 Midnights Practitioner: I am a practitioner with admitting privileges, knowledge of patient current condition, hospital course, and medical plan of care. Services: Services provided to patient in accordance with Admission requirements found in Title 42 Section 412.3 of the Code of Federal Regulations Patient History Date of Service: 04/29/23 Reason for admission: Dysuria / abdominal pain History of Present Illness: 87 yrs old Female with past medical history of hypertension, hyperlipidemia, hi story of breast cancer, history of polycystic kidney, TIA, who was brought to ER with abdominal discomfort and dysuria. Patient stated symptoms started 2 days ago with frequency of micturition and dysuria. Also associated with lower abdominal pain with no radiation and cramping type of pain. 6 out of 10 in severity at the time of interview. Associated with subjective fever and chills. Denies any chest pain or shortness of breath. Patient was assessed in the ER and was admitted for further management of UTI Allergies Sulfa (Sulfonamide Antibiotics) Allergy (Intermediate, Verified 06/01/17 15:12) Anaphylaxis Home medications list reviewed: Yes Home Medications: Atorvastatin Calcium [Lipitor*] 20 mg PO BEDTIME 06/14/13 Folic/Arginine/B12/B6/B.pepper [Folbee Ar Tablet] 1 tab PO DAILY 06/14/13 LORazepam [Ativan*] 0.5 mg PO DAILY 06/14/13 ramipriL [Altace*] 10 mg PO DAILY 06/14/13 Metoprolol Tartrate [Lopressor*] 50 mg PO BID 09/20/15 Pantoprazole Sodium [Protonix] 40 mg PO BID #60 tablet. 07/08/17 Vancomycin Oral Soln [Vancocin HCl*] 2.5 ml PO SEECOM #20 ml 07/08/17 - Past Medical/Surgical History Diabetic: No Past Medical History: Reviewed- Non-Contributory -: TIA -: diverticulitis -: polycystic kidney disease -: seasonal allergies -: cataracts -: breast CA -: hypercholestermia Past Surgical History: Reviewed- Non-Contributory -: Left and rt mastectomy -: uterine prolapse -: madeleine cataract sx - Family History Family History: Reviewed- Non-Contributory - Family History Father -: Hypertension Notes: aneurysm Mother -: Heart disease, Kidney disease - Social History Smoking Status: Never smoker Alcohol use: Yes CD- Drugs: No Caffeine use: Yes Review of Systems 10-point ROS is otherwise unremarkable General: Fever, Chills, Malaise Eyes: Unremarkable ENT: Unremarkable Respiratory: Unremarkable Cardiovascular: Unremarkable Gastrointestinal: Abdominal Pain Genitourinary: Dysuria, Frequency Musculoskeletal: Unremarkable Integumentary: Unremarkable Neurological: Unremarkable Physical Examination - Vital Signs Temperature: 98.8 F Blood Pressure: 138/78 Pulse: 78 Respirations: 18 Pulse Ox (%): 98 - Physical Exam General: Alert, In no apparent distress, Oriented x3 HEENT: Atraumatic, Normocephalic Neck: Supple, No Thyromegaly Respiratory: Clear to auscultation bilaterally, Normal air movement Cardiovascular: Regular rate/rhythm, Normal S1 S2 Capillary refill: <2 Seconds Gastrointestinal: Soft and benign, Non-distended, W/out hepatosplenomegaly Musculoskeletal: No clubbing, No swelling Integumentary: No rashes, No breakdown Neurological: Normal speech, Normal strength at 5/5 x4 extr, Normal tone, Sensation intact, Normal reflexes 2+, Normal affect Lymphatics: No axilla or inguinal lymphadenopathy - Studies Laboratory Data (last 24 hrs) 04/29/23 04/29/23 04/29/23 20:30 20:30 20:30 WBC 12.30 H Hgb 10.4 L Hct 30.3 L Plt Count 214 PT 12.4 INR 1.13 Sodium 128 L Potassium 3.5 BUN 21 H Creatinine 1.14 H Glucose 143 H Magnesium 1.2 L Total Bilirubin 0.6 AST 15 ALT 24 Alkaline Phosphatase 123 H Lipase 41 Imagings Data: CLINICAL HISTORY: Abdominal pain. ABD PAIN COMPARISON: Abdomen Pelvis W Contrast dated 07/01/2017; Abdomen Pelvis W Contrast dated 06/26/2017; Abdomen Pelvis W Contrast dated 10/20/2016; CT ABD PELVIS W CONTRAST dated 04/30/2015 TECHNIQUE: Biphasic CT imaging of the abdomen and pelvis was performed with 100 ml non-ionic IV contrast. All CT scans are performed using dose optimization technique as appropriate and may include automated exposure control or mA/KV adjustment according to patient size. FINDINGS: Mild linear atelectasis left lung base.Large hiatal hernia is present. Numerous small cysts are scattered throughout the liver parenchyma. Innumerable cysts are also present involving both kidneys. Findings likely indicate polycystic kidney disease. No bowel obstruction, free air, free fluid or abscess. Prominent colonic diverticulosis is noted without diverticulitis. The appendix is normal. No evidence of significant lymphadenopathy. Mild lumbar degenerative changes. IMPRESSION: No acute intra-abdominal or pelvic finding. Large hiatal hernia with the majority of the stomach intrathoracic. Full assessment of the stomach is limited due to distortion of normal anatomy. Chronic volvulus is possible. Polycystic kidney disease. Significant diverticulosis coli without diverticulitis. Assessment and Plan - Problems (Diagnosis) (1) UTI (urinary tract infection) Current Visit: Yes Status: Acute Plan: UTI Start on IV antibiotics Will obtain cultures Will change antibiotic as per sensitivity Will monitor inflammatory markers Leukocytosis noted Will get CBC in a.m. Hyponatremia Possibly due to dehydration Will start on IV hydration Monitor electrolytes and replace accordingly Acute renal insufficiency Possibly due to dehydration Will start on IV hydration Monitor renal parameters Hypomagnesemia Replace electrolytes Hiatal hernia Need outpatient follow-up GI/DVT prophylaxis Advanced directive full code - Advance Directives Does patient have a Living Will: No Does patient have a Durable POA for Healthcare: No - Code Status/Comfort Care Code Status: Full Code Time Spent Managing Pts Care (In Minutes): 45
[2023-04-30] MEDS: NA CHLORIDE 0.9% 1,000 ML IV SCH ×2 (01:15→08:48)
[2023-04-30 01:23] VITALS: BMI 25.4
[2023-04-30] MEDS ORDERED: POTASSIUM CL SA 10 MEQ TAB PO ONE (07:24)
[2023-04-30] MEDS: LORAZEPAM 0.5 MG TABLET PO SCH (08:46)
[2023-04-30] MEDS: ramipriL 5 MG CAP PO SCH (08:47)
[2023-04-30] MEDS: ENOXAPARIN 30 MG/0.3 ML SQ SCH (08:47)
[2023-04-30] MEDS: PANTOPRAZOLE 40MG TABLET PO SCH ×2 (08:47→15:35)
[2023-04-30] MEDS: METOPROLOL TAR 50 MG TAB PO SCH ×2 (08:47→20:49)
[2023-04-30] MEDS: CEFTRIAXONE 1,000 MG in NA CHLORIDE 0.9% 50 ML IVPB SCH (08:47)
[2023-04-30] MEDS: FOLBIC 1 TAB PO SCH (08:48)
[2023-04-30 08:54] LABS: Absolute Lymphocytes (CBC) 0.8 K/uL (0.7-4.9); Hematocrit 31.3 % (36.0-45.0); Lymphocytes % 6.2 % (15.3-44.8); MCV 88.7 fL (80-100); MPV 7.8 fL (7.6-11.3); Platelets 219 thou/uL (152-406); RBC Red Blood Cell Count 3.52 M/uL (3.86-4.86)
[2023-04-30 09:04] LABS: Albumin 2.4 g/dL (3.4-5.0); Bilirubin Total 0.5 mg/dL (0.2-1.0); Potassium 3.9 mEq/L (3.5-5.1); Protein, Total 6.6 g/dL (6.4-8.2)
--- NOTE | 2023-04-30 09:59 | P.PN ---
Subjective Date of Service: 04/30/23 Chief Complaint: Dysuria / abdominal pain Pt is resting comfortably in bed. She denies any fever chills or SOB. Pt is getting rocephin for UTI. No complaints. Review of Systems 10-point ROS is otherwise unremarkable General: Unremarkable Eyes: Unremarkable ENT: Unremarkable Respiratory: Unremarkable Cardiovascular: Unremarkable Gastrointestinal: Unremarkable Genitourinary: Unremarkable Musculoskeletal: Unremarkable Integumentary: Unremarkable Neurological: Unremarkable Lymphatics: Unremarkable Physical Examination - Vital Signs Temperature: 96.8 F Blood Pressure: 161/90 Pulse: 73 Respirations: 16 Pulse Ox (%): 94 - Physical Exam General: Alert, In no apparent distress, Oriented x3, Cooperative HEENT: Atraumatic, Normocephalic, PERRLA Neck: Supple, 2+ carotid pulse no bruit Respiratory: Clear to auscultation bilaterally, Normal air movement Cardiovascular: No edema, Normal pulses, Regular rate/rhythm, Normal S1 S2 Capillary refill: <2 Seconds Gastrointestinal: Normal bowel sounds, Soft and benign, Non-distended Musculoskeletal: No clubbing, No swelling Integumentary: No rashes, No breakdown, No significant lesion Neurological: Normal gait, Normal speech, Normal strength at 5/5 x4 extr Lymphatics: No axilla or inguinal lymphadenopathy - Studies Laboratory Data (last 24 hrs) 04/29/23 04/29/23 04/29/23 20:30 20:30 20:30 WBC 12.30 H Hgb 10.4 L Hct 30.3 L Plt Count 214 PT 12.4 INR 1.13 Sodium 128 L Potassium 3.5 BUN 21 H Creatinine 1.14 H Glucose 143 H Magnesium 1.2 L Total Bilirubin 0.6 AST 15 ALT 24 Alkaline Phosphatase 123 H Lipase 41 Assessment And Plan - Plan Sepsis 2/2 UTI: will continue rocephin and follow urine culture. Hyponatremia: Na is 128. Likely due to hypovolemia. Will continue IVF and trend Na level. Acute renal insufficiency: possibly due to dehydration. Will continue IVF and avoid nephrotxins. Cr is 1.07<- 1.14. Hypomagnesemia: Mag was 1.2. repleted Hiatal hernia: Pt needs outpatient follow-up GI ppx: Protonix DVT ppx: SCD Code: full code Discharge Plan: Home Plan to discharge in: 24 Hours - Code Status/Comfort Care Code Status Assessed: Yes Code Status: Full Code
[2023-04-30] MEDS ORDERED: ATORVASTATIN 20 MG TAB PO SCH (21:00)
[2023-05-01] MEDS: NA CHLORIDE 0.9% 1,000 ML IV SCH ×2 (01:40→11:59)
[2023-05-01 07:15] LABS: Absolute Lymphocytes (CBC) 0.8 K/uL (0.7-4.9); Hematocrit 29.5 % (36.0-45.0); Lymphocytes % 6.8 % (15.3-44.8); MCV 90.4 fL (80-100); MPV 7.7 fL (7.6-11.3); Platelets 212 thou/uL (152-406); RBC Red Blood Cell Count 3.26 M/uL (3.86-4.86)
[2023-05-01 07:31] LABS: Potassium 4.1 mEq/L (3.5-5.1)
[2023-05-01] MEDS: PANTOPRAZOLE 40MG TABLET PO SCH (08:53)
[2023-05-01] MEDS: CEFTRIAXONE 1,000 MG in NA CHLORIDE 0.9% 50 ML IVPB SCH (08:55)
[2023-05-01] MEDS: ENOXAPARIN 30 MG/0.3 ML SQ SCH (08:55)
[2023-05-01] MEDS: ramipriL 5 MG CAP PO SCH (08:55)
[2023-05-01] MEDS: LORAZEPAM 0.5 MG TABLET PO SCH (08:55)
[2023-05-01] MEDS: FOLBIC 1 TAB PO SCH (08:56)
[2023-05-01] MEDS: METOPROLOL TAR 50 MG TAB PO SCH (08:56)
[2023-05-01 10:30] VITALS: O2SAT 100
[2023-05-01 12:51] VITALS: BP 160/79; TEMP 97.3
[2023-05-01] MEDS ORDERED: Magnesium Sulfate 2gm IVPB 2 G/50 ML BAG IV ONE (14:08)
--- NOTE | 2023-05-01 14:29 | P.DS ---
Admission Date: 04/29/23 Discharge Date: 05/01/23 Reason for Admission: Dysuria / abdominal pain - Problems (1) UTI (urinary tract infection) Current Visit: Yes Status: Acute (2) Hypomagnesemia Onset Date: 06/27/17 Current Visit: No Status: Acute (3) Hyponatremia Onset Date: 06/27/17 Current Visit: No Status: Acute Brief History of Present Illness: History of Present Illness: 87 yrs old Female with past medical history of hypertension, hyperlipidemia, history of breast cancer, history of polycystic kidney, TIA, who was brought to ER with abdominal discomfort and dysuria. Patient stated symptoms started 2 days ago with frequency of micturition and dysuria. Also associated with lower abdominal pain with no radiation and cramping type of pain. 6 out of 10 in severity at the time of interview. Associated with subjective fever and chills. Denies any chest pain or shortness of breath. Patient was assessed in the ER and was admitted for further management of UTI Hospital Course: Ms. Francisco Javier Diaz is a pleasant 87-year-old with a past medical history significant for hypertension, hyperlipidemia, history of breast cancer, history of polycystic kidney, TIA who was admitted to the [facility] on 04/29/2023 for urinary tract infection. Patient was treated with IV antibiotics, IV hydration and correction of the electrolyte abnormalities. On 05/01/2023, patient was seen on morning rounds and deemed medically stable for discharge. Patient was discharged with instructions to schedule follow-up appointments with PCP i. Patient was provided prescriptions for Cephelxin 500 mg 3 times daily for 5 days. The patient was given the opportunity to ask questions and reported no further questions. Furthermore, all questions were answered to the best of my ability. 1. Please call and schedule a follow-up appointment with your PCP in 3-5 days - Please follow-up with your PCP for medication refills/adjustments Vital Signs/Physical Exam: Temp Pulse Resp BP Pulse Ox 97.3 F 73 16 160/79 H 98 05/01/23 12:00 05/01/23 12:00 05/01/23 12:00 05/01/23 12:00 05/01/23 12:00 General: Alert, Oriented x3 HEENT: Atraumatic, Normocephalic Neck: Supple, 2+ carotid pulse no bruit Respiratory: Clear to auscultation bilaterally, Normal air movement Cardiovascular: No edema, Normal pulses Capillary refill: <2 Seconds Gastrointestinal: Normal bowel sounds, Soft and benign Musculoskeletal: No clubbing, No swelling Integumentary: No rashes, No breakdown Neurological: Normal speech, Normal tone, Normal affect Laboratory Data at Discharge: WBC 11.10 thou/uL (4.3-10.9) H 05/01/23 06:49 Hgb 9.9 g/dL (12.0-15.0) L 05/01/23 06:49 Hct 29.5 % (36.0-45.0) L 05/01/23 06:49 Plt Count 212 thou/uL (152-406) 05/01/23 06:49 PT 12.4 SECONDS (9.5-12.5) 04/29/23 20:30 INR 1.13 04/29/23 20:30 Sodium 135 mEq/L (136-145) L 05/01/23 06:49 Potassium 4.1 mEq/L (3.5-5.1) 05/01/23 06:49 BUN 17 mg/dL (7-18) 05/01/23 06:49 Creatinine 1.14 mg/dL (0.55-1.02) H 05/01/23 06:49 Glucose 108 mg/dL (74-106) H 05/01/23 06:49 Magnesium 1.8 mg/dL (1.6-2.4) 05/01/23 12:36 Total Bilirubin 0.5 mg/dL (0.2-1.0) 04/30/23 07:58 AST 17 U/L (15-37) 04/30/23 07:58 ALT 23 U/L (13-56) 04/30/23 07:58 Alkaline Phosphatase 118 U/L (45-117) H 04/30/23 07:58 Lipase 41 U/L (13-75) 04/29/23 20:30 Home Medications: Atorvastatin Calcium [Lipitor*] 20 mg PO BEDTIME 06/14/13 Folic/Arginine/B12/B6/B.pepper [Folbee Ar Tablet] 1 tab PO DAILY 06/14/13 LORazepam [Ativan*] 0.5 mg PO DAILY 06/14/13 ramipriL [Altace*] 10 mg PO DAILY 06/14/13 Metoprolol Tartrate [Lopressor*] 50 mg PO BID 09/20/15 Pantoprazole Sodium [Protonix] 40 mg PO BID #60 tablet. 07/08/17 Ascorbic Acid [Vitamin C] 500 mg PO DAILY 04/30/23 Aspirin 81 mg PO DAILY 04/30/23 Biotin/Lutein [Biotin Plus 5,000 Mcg Tablet] 5,000 mg PO DAILY 04/30/23 Cholecalciferol (Vitamin D3) [Vitamin D3] 1,000 unit PO DAILY 04/30/23 Clopidogrel Bisulfate [Plavix*] 75 mg PO DAILY 04/30/23 Ferrous Sulfate [Iron] 325 mg PO DAILY 04/30/23 Magnesium Oxide [Mag 0X*] 400 mg PO DAILY 04/30/23 Mv-Min/FA/Vit K/Lutein/Zeaxant [Preservision Areds 2 Plus Mv] 1 cap PO DAILY 04/30/23 cephALEXin [Cephalexin] 500 mg PO TID 5 Days #15 cap 05/01/23 New Medications: cephALEXin [Cephalexin] 500 mg PO TID 5 Days #15 cap Physician Discharge Instructions: Ms. Francisco Javier Diaz is a pleasant 87-year-old with a past medical history significant for hypertension, hyperlipidemia, history of breast cancer, history of polycystic kidney, TIA who was admitted to the [facility] on 04/29/2023 for urinary tract infection. Patient was treated with IV antibiotics, IV hydration and correction of the electrolyte abnormalities. On 05/01/2023, patient was seen on morning rounds and deemed medically stable for discharge. Patient was discharged with instructions to schedule follow-up appointments with PCP i. Patient was provided prescriptions for Keflex 500 mg 3 times daily for 5 days. The patient was given the opportunity to ask questions and reported no further questions. Furthermore, all questions were answered to the best of my ability. 1. Please call and schedule a follow-up appointment with your PCP in 3-5 days - Please follow-up with your PCP for medication refills/adjustments Diet: Regular Activity: Ad fermin Followup: Brandon Johnson MD [Primary Care Provider] - Physician Review: Patient Assessed, Agree with Above Assessment and Plan Time spent managing pt's care (in minutes): 55 (minutes)
== END 2023-05-01 15:58 | disposition home or self-care (01) | DRG 872 ==
LOC: ER 19:52 → ERHOLD 22:51 → 4TH 23:49
PROVIDERS: ADMIT Family Medicine; ATTEND Hospitalist
DX: A41.9 Sepsis, unspecified organism (principal); N39.0 Urinary tract infection, site not specified; E87.1 Hypo-osmolality and hyponatremia; E78.5 Hyperlipidemia, unspecified; I10 Essential (primary) hypertension; N28.9 Disorder of kidney and ureter, unspecified; D64.9 Anemia, unspecified; E83.42 Hypomagnesemia; Q40.1 Congenital hiatus hernia; Z88.2 Allergy status to sulfonamides; Z85.3 Personal history of malignant neoplasm of breast; Z90.13 Acquired absence of bilateral breasts and nipples; Z86.73 Personal history of transient ischemic attack (TIA), and cerebral infarction without residual deficits; Z79.02 Long term (current) use of antithrombotics/antiplatelets; Z79.82 Long term (current) use of aspirin; Z79.899 Other long term (current) drug therapy
CPT/HCPCS: 36415; 71045; 74177; 80048; 80053; 80076; 81001; 83605; 83690; 83735; 83880; 84443; 84484; 85025; 85610; 87040; 87077; 87086; 87088; 87186; 93005; 96361; 96365; 96367; 99285; J0696; J1650; J2185; J3475; J7030; J7040; Q9967

== ENCOUNTER 2023-07-15 13:45 | Observation (INO) | payer OTHER, BC ==
--- NOTE | 2023-07-15 14:18 | RAD REPORT ---
EXAM DESCRIPTION: CT - Ct Stroke Brain Wo Cont - 07/15/2023 2:05 pm CLINICAL HISTORY: STROKE ALERT COMPARISON: Head Brain Wo Cont dated 09/08/2017; Ct Stroke Brain Wo Cont dated 09/07/2017 TECHNIQUE: Noncontrast head CT images were obtained without IV contrast. Multiplanar reformats were generated and reviewed. All CT scans are performed using dose optimization technique as appropriate and may include automated exposure control or mA/KV adjustment according to patient size. FINDINGS: No intracranial hemorrhage, mass, or edema. Midline structures are unremarkable. Normal ventricular caliber for age. Rosas-white matter differentiation is preserved, without evidence of acute infarct. No abnormal extra- axial fluid collections. Stable subtle anterior subcortical and deep white matter hypodensities, nonspecific, but may suggest chronic small vessel ischemic changes. Mastoid air cells are well aerated. Opacification of the right maxillary and right anterior ethmoidal air cells with expansile right maxillary sinus mucocele resulting in some osseous remodeling, which may be stable. No acute bony findings. IMPRESSION: No evidence of an acute intracranial process. Stable findings as above. The findings were communicated to Leonardo Carmona on 07/15/2023 at 14:13 hours.
[2023-07-15 14:26] LABS: Absolute Lymphocytes (CBC) 1.8 K/uL (0.7-4.9); Hematocrit 30.9 % (36.0-45.0); Lymphocytes % 20.5 % (15.3-44.8); MCV 85.1 fL (80-100); MPV 7.2 fL (7.6-11.3); Platelets 255 thou/uL (152-406); RBC Red Blood Cell Count 3.63 M/uL (3.86-4.86)
[2023-07-15 14:38] LABS: Protime INR 1.03
--- NOTE | 2023-07-15 15:22 | RAD REPORT ---
EXAM DESCRIPTION: CT - Head angio - 07/15/2023 2:23 pm CLINICAL HISTORY: APHASIA COMPARISON: Ct Stroke Brain Wo Cont dated 07/15/2023; Head Brain Wo Cont dated 09/08/2017 TECHNIQUE: Axial CT angiography images of the head was performed with multiplanar and maximum intens ity projection reconstructions. Images performed following intravenous administration of 100mL Isovue 370. All CT scans are performed using dose optimization technique as appropriate and may include automated exposure control or mA/KV adjustment according to patient size. FINDINGS: No evidence of large vessel occlusion. No evidence of aneurysm or dissection flap is detec marie. No flow-limiting stenosis or vascular malformation identified. Antegrade flow is seen in the right vertebral artery. Basilar artery is diminutive, with patent bilat eral posterior communicating arteries supplying the posterior circulation. The visualized dural venous sinuses are grossly patent. IMPRESSION: No evidence of large vessel occlusion or flow-limiting stenosis.
--- NOTE | 2023-07-15 15:24 | RAD REPORT ---
EXAM DESCRIPTION: CT - Neck Angio - 07/15/2023 2:23 pm CLINICAL HISTORY: aphasia COMPARISON: CT HEAD CSPINE MPR WO CONTRAST dated 05/31/2013 TECHNIQUE: Axial CT angiography images of the neck was performed with multiplanar and maximum intens ity projection reconstructions. Images performed following intravenous administration of 100mL Isovue 370. All CT scans are performed using dose optimization technique as appropriate and may include automated exposure control or mA/KV adjustment according to patient size. Quantification of carotid stenosis, if any, is performed according to NASCET criteria. FINDINGS: A left aortic arch is identified with normal three vessel configuration of the great vesse ls. No significant flow abnormality is seen of the common carotid bilaterally. No significant stenosis is identified involving the cervical segments of both internal carotid arteri es. Normal flow is seen within both vertebral arteries although there is marked caliber attenuation of th e left, likely developmental. Degenerative changes of the cervical spine, with multilevel mild degrees of spondylolisthesis, stable . IMPRESSION: No significant flow abnormality of the neck vessels is identified. CAROTID STENOSIS REFERENCE USING NASCET CRITERIA: % ICA stenosis = (1 - narrowest ICA diameter/diameter of distal cervical ICA) x 100. Mild - <50% stenosis. Moderate - 50-69% stenosis. Severe - 70-94% stenosis. Near occlusion - 95-99% stenosis. Occluded - 100% stenosis.
[2023-07-15] MEDS ORDERED: ASPIRIN 81 MG CHEWABLE TABLET ONE (15:26)
[2023-07-15] MEDS ORDERED: FOLIC ACID 5 MG/ML VIAL ONE (15:27)
[2023-07-15 15:29] LABS: Troponin High Sensitivity 9.1 pg/mL (<58.9)
--- NOTE | 2023-07-15 15:36 | ER ---
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 Resolving now ll1 per . Coronavirus screen: Vaccine status: Patient reports receiving the 2nd dose of the covid vaccine. Client denies travel out of the [place] in the last 14 days. At this time, the client does not indicate any symptoms associated with coronavirus-19. Ebola Screen: Patient denies travel to an Ebola-affected area in the 21 days before illness onset. Initial Sepsis Screen: Does the patient meet any 2 criteria? No. Patient's initial sepsis screen is negative. Does the patient have a suspected source of infection? No. Patient's initial sepsis screen is negative. Risk Assessment: Do you want to hurt yourself or someone else? Patient reports no desire to harm self or others. 13:49 Method Of Arrival: Ambulatory ll1 13:49 Acuity: ULICES 2 ll1 13:55 Onset of symptoms was July 15, 2023. hb Triage Assessment: 13:55 General: Appears in no apparent distress. Behavior is calm, cooperative, appropriate hb for age. Pain: Denies pain. Neuro: Reports expressive aphasia. Historical: - Allergies: 13:49 Sulfa (Sulfonamide Antibiotics); ll1 - PMHx: 13:49 Anxiety; Diverticulitis; BREAST CA; Hyperlipidemia; Hypertension; TIA; ll1 - Immunization history:: Adult Immunizations up to date. - Social history:: Smoking status: Patient denies any tobacco usage or history of. - Family history:: not pertinent. - Hospitalizations: : No recent hospitalization is reported. Screenin:00 [facility] ED Fall Risk Assessment (Adult) History of falling in the last 3 months, rs5 including since admission No falls in past 3 months (0 pts) Confusion or Disorientation No (0 pts) Intoxicated or Sedated No (0 pts) Impaired Gait No (0 pts) Mobility Assist Device Used No (0 pt) Altered Elimination No (0 pt) Score/Fall Risk Level 0 - 2 = Low Risk Oriented to surroundings, Maintained a safe environment. Abuse screen: Denies threats or abuse. Nutritional screening: No deficits noted. Tuberculosis screening: No symptoms or risk factors identified. Assessment: 13:54 Reassessment: Code stroke called. ld1 13:55 General: Appears in no apparent distress. comfortable, Behavior is calm, cooperative. rs5 Pain: Denies pain. 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 Gait is steady, Speech is normal, Facial symmetry appears normal, Pupils are PERRLA, Pupil Size: 3 mm Intact. Cardiovascular: Patient's skin is warm and dry. Rhythm is regular. Respiratory: Airway is patent Respiratory effort is even, unlabored, Respiratory pattern is regular, symmetrical. GI: Abdomen is round non-distended, Bowel sounds present X 4 quads. Abd is soft and non tender X 4 quads. : No signs and/or symptoms were reported regarding the genitourinary system. EENT: No signs and/or symptoms were reported regarding the EENT system. Derm: Skin is intact, Skin is pink, warm \T\ dry. 13:55 Musculoskeletal: Range of motion: intact in all extremities. rs5 13:58 Reassessment: Pt to CT. ld1 14:30 Reassessment: No changes from previously documented assessment. rs5 15:25 Reassessment: Patient and/or family updated on plan of care and expected duration. Pain rs5 level reassessed. Patient is alert, oriented x 3, equal unlabored respirations, skin warm/dry/pink. Patient denies pain at this time. 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 Gait is steady, Speech is normal, Facial symmetry appears normal, Pupils are PERRLA, Pupil Size: 3mm Intact. 16:40 Reassessment: No changes from previously documented assessment. rs5 17:24 Reassessment: Patient and/or family updated on plan of care and expected duration. Pain rs5 level reassessed. Patient is alert, oriented x 3, equal unlabored respirations, skin warm/dry/pink. 18:15 Reassessment: No changes from previously documented assessment. rs5 Vital Signs: 13:49 BP 150 / 92; Pulse 61; Resp 17; Temp 97; Pulse Ox 99% ; Weight 57.61 kg; Height 5 ft. 0 ll1 in. ; Pain 0/10; 14:39 BP 160 / 81; Pulse 59; Resp 18; Pulse Ox 97% on R/A; ld1 15:49 BP 169 / 117; Pulse 53; Resp 16; Pulse Ox 98% on R/A; ld1 16:35 BP 161 / 78; Pulse 55; Resp 18; Pulse Ox 99% on R/A; rs5 17:26 BP 165 / 86; Pulse 51; Resp 18; Pulse Ox 99% on R/A; rs5 18:30 BP 160 / 84; Pulse 53; Resp 18; Pulse Ox 99% on R/A; rs5 13:49 Body Mass Index 24.80 (57.61 kg, 152.4 cm) ll1 13:49 Pain Scale: Adult ll1 NIH Stroke Scale Scores: 13:55 NIHSS Score: 0 rs5 14:00 NIHSS Score: 0 rs5 14:02 NIHSS Score: 0 rn 14:30 NIHSS Score: 0 rs5 15:00 NIHSS Score: 0 rs5 16:01 NIHSS Score: 0 rs5 17:05 NIHSS Score: 0 rs5 ED Course: 13:46 Patient arrived in ED. rg4 13:46 Brandon Johnson MD is Private Physician. rg4 13:46 Rikki Sadler MD is Attending Physician. rn 13:50 Triage completed. ll1 13:50 Arm band placed on. ll1 13:55 Patient has correct armband on for positive identification. Placed in gown. Bed in low rs5 position. Call light in reach. Side rails up X2. Adult w/ patient. 13:55 Inserted saline lock: 22 gauge in right hand, using aseptic technique. rs5 14:07 CT Stroke Brain w/o Contrast In Process Unspecified. EDMS 14:20 Inserted saline lock: 22 gauge in left wrist, using aseptic technique. rs5 14:25 CT Head Angio In Process Unspecified. EDMS 14:25 CT Neck Angio In Process Unspecified. EDMS 14:56 Rehan Mckinney, RN is Primary Nurse. rs5 15:03 Stroke CXR 1 View In Process Unspecified. EDMS 15:35 Eduard Bond MD is Hospitalizing Provider. rn 15:50 No provider procedures requiring assistance completed. rs5 17:14 Brain Wo Cont In Process Unspecified. EDMS 19:39 Patient admitted, IV remains in place. lg3 Administered Medications: 15:30 Drug: Aspirin PO Chewable Tablet 324 mg PO once; 81 mg tablets x 4 Route: PO; rs5 16:01 Follow up: Response: No adverse reaction rs5 15:30 Drug: foLIC Acid IVPB 1 mg IVPB once Route: IVPB; Site: right hand; rs5 16:01 Follow up: Response: No adverse reaction rs5 Medication: 15:51 VIS not applicable for this client. rs5 Outcome: 15:36 Decision to Hospitalize by Provider. rn 19:39 Admitted to Med/surg accompanied by tech, via wheelchair, room 401, with chart, Report lg3 called to Renee 19:39 Condition: stable 19:39 Instructed on the need for admit, Demonstrated understanding of instructions, 19:40 Patient left the ED. lg3 NIH Stroke Scale - NIH Stroke Score Date: 07/15/2023 Time: 13:55 Total Score = 0 10. Dysarthria (speech clarity - read or repeat words) - 0(Normal) 11. Extinction and Inattention (visual/tactile/auditory/spatial/personal) - 0(No abnormality) 1a. Level of Consciousness (LOC) - 0(Alert) 1b. Level of Consciousness (LOC) (Month \T\ Age) - 0(Both) 1c. LOC Commands (Open \T\ Closes Eyes/Buffing Turner And Counter) - 0(Both) 2. Best Gaze (Lateral Gaze Paresis) - 0(Normal) 3. Visual Field Loss - 0(No visual loss) 4. Facial Palsy - 0(Normal) 5a. Left Arm: Motor (10-second hold) - 0(No drift) 5b. Right Arm: Motor (10-second hold) - 0(No drift) 6a. Left Leg: Motor (5-second hold - always test supine) - 0(No drift) 6b. Right Leg: Motor (5-second hold - always test supine) - 0(No drift) 7. Limb Ataxia (finger/nose \T\ heel/mcdermott - test with eyes open) - 0(Absent) 8. Sensory Loss (pinprick arms/legs/face) - 0(Normal) 9. Best Language: Aphasia (description/naming/reading) - 0(No aphasia) Initials: rs5 NIH Stroke Scale - NIH Stroke Score Date: 07/15/2023 Time: 14:00 Total Score = 0 10. Dysarthria (speech clarity - read or repeat words) - 0(Normal) 11. Extinction and Inattention (visual/tactile/auditory/spatial/personal) - 0(No abnormality) 1a. Level of Consciousness (LOC) - 0(Alert) 1b. Level of Consciousness (LOC) (Month \T\ Age) - 0(Both) 1c. LOC Commands (Open \T\ Closes Eyes/Buffing Turner And Counter) - 0(Both) 2. Best Gaze (Lateral Gaze Paresis) - 0(Normal) 3. Visual Field Loss - 0(No visual loss) 4. Facial Palsy - 0(Normal) 5a. Left Arm: Motor (10-second hold) - 0(No drift) 5b. Right Arm: Motor (10-second hold) - 0(No drift) 6a. Left Leg: Motor (5-second hold - always test supine) - 0(No drift) 6b. Right Leg: Motor (5-second hold - always test supine) - 0(No drift) 7. Limb Ataxia (finger/nose \T\ heel/mcdermott - test with eyes open) - 0(Absent) 8. Sensory Loss (pinprick arms/legs/face) - 0(Normal) 9. Best Language: Aphasia (description/naming/reading) - 0(No aphasia) Initials: [facility] NIH Stroke Scale - NIH Stroke Score Date: 07/15/2023 Time: 14:02 Total Score = 0 10. Dysarthria (speech clarity - read or repeat words) - 0(Normal) 11. Extinction and Inattention (visual/tactile/auditory/spatial/personal) - 0(No abnormality) 1a. Level of Consciousness (LOC) - 0(Alert) 1b. Level of Consciousness (LOC) (Month \T\ Age) - 0(Both) 1c. LOC Commands (Open \T\ Closes Eyes/Buffing Turner And Counter) - 0(Both) 2. Best Gaze (Lateral Gaze Paresis) - 0(Normal) 3. Visual Field Loss - 0(No visual loss) 4. Facial Palsy - 0(Normal) 5a. Left Arm: Motor (10-second hold) - 0(No drift) 5b. Right Arm: Motor (10-second hold) - 0(No drift) 6a. Left Leg: Motor (5-second hold - always test supine) - 0(No drift) 6b. Right Leg: Motor (5-second hold - always test supine) - 0(No drift) 7. Limb Ataxia (finger/nose \T\ heel/mcdermott - test with eyes open) - 0(Absent) 8. Sensory Loss (pinprick arms/legs/face) - 0(Normal) 9. Best Language: Aphasia (description/naming/reading) - 0(No aphasia) Initials: rn NIH Stroke Scale - NIH Stroke Score Date: 07/15/2023 Time: 14:30 Total Score = 0 10. Dysarthria (speech clarity - read or repeat words) - 0(Normal) 11. Extinction and Inattention (visual/tactile/auditory/spatial/personal) - 0(No abnormality) 1a. Level of Consciousness (LOC) - 0(Alert) 1b. Level of Consciousness (LOC) (Month \T\ Age) - 0(Both) 1c. LOC Commands (Open \T\ Closes Eyes/Buffing Turner And Counter) - 0(Both) 2. Best Gaze (Lateral Gaze Paresis) - 0(Normal) 3. Visual Field Loss - 0(No visual loss) 4. Facial Palsy - 0(Normal) 5a. Left Arm: Motor (10-second hold) - 0(No drift) 5b. Right Arm: Motor (10-second hold) - 0(No drift) 6a. Left Leg: Motor (5-second hold - always test supine) - 0(No drift) 6b. Right Leg: Motor (5-second hold - always test supine) - 0(No drift) 7. Limb Ataxia (finger/nose \T\ heel/mcdermott - test with eyes open) - 0(Absent) 8. Sensory Loss (pinprick arms/legs/face) - 0(Normal) 9. Best Language: Aphasia (description/naming/reading) - 0(No aphasia) Initials: rs5 NIH Stroke Scale - NIH Stroke Score Date: 07/15/2023 Time: 15:00 Total Score = 0 10. Dysarthria (speech clarity - read or repeat words) - 0(Normal) 11. Extinction and Inattention (visual/tactile/auditory/spatial/personal) - 0(No abnormality) 1a. Level of Consciousness (LOC) - 0(Alert) 1b. Level of Consciousness (LOC) (Month \T\ Age) - 0(Both) 1c. LOC Commands (Open \T\ Closes Eyes/Buffing Turner And Counter) - 0(Both) 2. Best Gaze (Lateral Gaze Paresis) - 0(Normal) 3. Visual Field Loss - 0(No visual loss) 4. Facial Palsy - 0(Normal) 5a. Left Arm: Motor (10-second hold) - 0(No drift) 5b. Right Arm: Motor (10-second hold) - 0(No drift) 6a. Left Leg: Motor (5-second hold - always test supine) - 0(No drift) 6b. Right Leg: Motor (5-second hold - always test supine) - 0(No drift) 7. Limb Ataxia (finger/nose \T\ heel/mcdermott - test with eyes open) - 0(Absent) 8. Sensory Loss (pinprick arms/legs/face) - 0(Normal) 9. Best Language: Aphasia (description/naming/reading) - 0(No aphasia) Initials: rs5 NIH Stroke Scale - NIH Stroke Score Date: 07/15/2023 Time: 16:01 Total Score = 0 10. Dysarthria (speech clarity - read or repeat words) - 0(Normal) 11. Extinction and Inattention (visual/tactile/auditory/spatial/personal) - 0(No abnormality) 1a. Level of Consciousness (LOC) - 0(Alert) 1b. Level of Consciousness (LOC) (Month \T\ Age) - 0(Both) 1c. LOC Commands (Open \T\ Closes Eyes/Buffing Turner And Counter) - 0(Both) 2. Best Gaze (Lateral Gaze Paresis) - 0(Normal) 3. Visual Field Loss - 0(No visual loss) 4. Facial Palsy - 0(Normal) 5a. Left Arm: Motor (10-second hold) - 0(No drift) 5b. Right Arm: Motor (10-second hold) - 0(No drift) 6a. Left Leg: Motor (5-second hold - always test supine) - 0(No drift) 6b. Right Leg: Motor (5-second hold - always test supine) - 0(No drift) 7. Limb Ataxia (finger/nose \T\ heel/mcdermott - test with eyes open) - 0(Absent) 8. Sensory Loss (pinprick arms/legs/face) - 0(Normal) 9. Best Language: Aphasia (description/naming/reading) - 0(No aphasia) Initials: rs5 NIH Stroke Scale - NIH Stroke Score Date: 07/15/2023 Time: 17:05 Total Score = 0 10. Dysarthria (speech clarity - read or repeat words) - 0(Normal) 11. Extinction and Inattention (visual/tactile/auditory/spatial/personal) - 0(No abnormality) 1a. Level of Consciousness (LOC) - 0(Alert) 1b. Level of Consciousness (LOC) (Month \T\ Age) - 0(Both) 1c. LOC Commands (Open \T\ Closes Eyes/Buffing Turner And Counter) - 0(Both) 2. Best Gaze (Lateral Gaze Paresis) - 0(Normal) 3. Visual Field Loss - 0(No visual loss) 4. Facial Palsy - 0(Normal) 5a. Left Arm: Motor (10-second hold) - 0(No drift) 5b. Right Arm: Motor (10-second hold) - 0(No drift) 6a. Left Leg: Motor (5-second hold - always test supine) - 0(No drift) 6b. Right Leg: Motor (5-second hold - always test supine) - 0(No drift) 7. Limb Ataxia (finger/nose \T\ heel/mcdermott - test with eyes open) - 0(Absent) 8. Sensory Loss (pinprick arms/legs/face) - 0(Normal) 9. Best Language: Aphasia (description/naming/reading) - 0(No aphasia) Initials: rs5 Signatures: Dispatcher [employer] EDMS Rikki Sadler MD MD rn Baxter, Heather RN RN Mallory Krishnamurthy4 Aline Potts RN RN lg3 Ghazal Rodriguez RN RN ll1 Gabriela Lozada RN RN ld1 Rehan Mckinney RN RN rs5 Corrections: (The following items were deleted from the chart) 13:55 13:49 Chief complaint: Patient states: Confusion and slurred speech 1 14:07 14:06 Reassessment: Pt to CT ld1 ld1
--- NOTE | 2023-07-15 15:36 | EDPHYS ---
Physician Documentation [facility] Name: Alexa Mcintyre Age: 87 yrs Sex: Female : 1935 Arrival Date: 07/15/2023 Time: 13:45 Bed 4 Private MD: Brandon Johnson E ED Physician Rikki Sadler HPI: 07/15 14:00 This 87 yrs old Female presents to ER via Ambulatory with complaints of difficulty rn speaking. 14:00 The patient presents to the emergency department with a speech or higher order brain rn function problem. Patient reports 30 minutes prior to arrival began to notice difficulty with speech. Difficulty getting her words out as she intended. Upon arrival the symptoms were nearly resolved and during my examination her speech appears normal and back to baseline. confirms that her voice and speech are completely back to baseline. No other neurological findings. No recent surgery or head trauma. No medication changes recently. Patient takes Plavix and aspirin. Patient has had multiple TIAs in the past.. 15:09 Onset: The symptoms/episode began/occurred 30 minute(s) ago. Context: occurred while rn the patient was at rest. Associated signs and symptoms: Pertinent negatives: fever, neck stiffness, paresthesias, seizure, syncope, near-syncope, blurred vision, double vision, visual field changes, loss of vision, weakness. Severity of symptoms: At their worst the symptoms were mild in the emergency department the symptoms have resolved. Current symptoms: Currently, the patient is not experiencing any symptoms. The patient has experienced similar episodes in the past. Historical: - Allergies: 13:49 Sulfa (Sulfonamide Antibiotics); ll1 - PMHx: 13:49 Anxiety; Diverticulitis; BREAST CA; Hyperlipidemia; Hypertension; TIA; ll1 - Immunization history:: Adult Immunizations up to date. - Social history:: Smoking status: Patient denies any tobacco usage or history of. - Family history:: not pertinent. - Hospitalizations: : No recent hospitalization is reported. ROS: 15:09 Constitutional: Negative for fever, chills, and weight loss, Eyes: Negative for injury, rn pain, redness, and discharge, Neck: Negative for injury, pain, and swelling, Cardiovascular: Negative for chest pain, palpitations, and edema, Respiratory: Negative for shortness of breath, cough, wheezing, and pleuritic chest pain, Abdomen/GI: Negative for abdominal pain, nausea, vomiting, diarrhea, and constipation, Back: Negative for injury and pain, MS/Extremity: Negative for injury and deformity, Skin: Negative for injury, rash, and discoloration, Neuro: Negative for weakness, numbness, tingling, and seizure, Exam: 15:09 Constitutional: This is a well developed, well nourished patient who is awake, alert, rn and in no acute distress. Head/Face: Normocephalic, atraumatic. Eyes: Pupils equal round and reactive to light, extra-ocular motions intact. Lids and lashes normal. Conjunctiva and sclera are non-icteric and not injected. Cornea within normal limits. Periorbital areas with no swelling, redness, or edema. Cardiovascular: Bradycardic, regular rhythm. No pulse deficits. Respiratory: No increased work of breathing, no retractions or nasal flaring. Abdomen/GI: Soft, non-tender MS/ Extremity: Pulses equal, no cyanosis. Neurovascular intact. Full, normal range of motion. Equal circumference. Neuro: Awake and alert, GCS 15, oriented to person, place, time, and situation. Cranial nerves II-XII grossly intact. Motor strength 5/5 in all extremities. Sensory grossly intact. Cerebellar exam normal. 17:50 ECG was reviewed by the Attending Physician. rn Vital Signs: 13:49 BP 150 / 92; Pulse 61; Resp 17; Temp 97; Pulse Ox 99% ; Weight 57.61 kg; Height 5 ft. 0 ll1 in. ; Pain 0/10; 14:39 BP 160 / 81; Pulse 59; Resp 18; Pulse Ox 97% on R/A; ld1 15:49 BP 169 / 117; Pulse 53; Resp 16; Pulse Ox 98% on R/A; ld1 16:35 BP 161 / 78; Pulse 55; Resp 18; Pulse Ox 99% on R/A; rs5 17:26 BP 165 / 86; Pulse 51; Resp 18; Pulse Ox 99% on R/A; rs5 18:30 BP 160 / 84; Pulse 53; Resp 18; Pulse Ox 99% on R/A; rs5 13:49 Body Mass Index 24.80 (57.61 kg, 152.4 cm) ll1 13:49 Pain Scale: Adult ll1 NIH Stroke Scale Scores: 13:55 NIHSS Score: 0 rs5 14:00 NIHSS Score: 0 rs5 14:02 NIHSS Score: 0 rn 14:30 NIHSS Score: 0 rs5 15:00 NIHSS Score: 0 rs5 16:01 NIHSS Score: 0 rs5 17:05 NIHSS Score: 0 rs5 MDM: 13:46 Patient medically screened. rn 14:37 ED course: Speech completely back to baseline. confirms. No other neurological rn deficits. CT without acute findings. No indication for TNKase at this time.. 15:35 Data reviewed: vital signs, nurses notes, lab test result(s), EKG, radiologic studies, rn CT scan, and as a result, I will admit patient. Consideration of Admission/Observation Patient was admitted/placed on observation. Escalation of care including admission/observation considered. Care significantly affected by the following chronic conditions: Hypertension, TIA. Counseling: I had a detailed discussion with the patient and/or guardian regarding the historical points, exam findings, and any diagnostic results supporting the discharge/admit diagnosis, lab results, radiology results, the need for further work-up and treatment in the hospital. 07/15 14:00 Order name: Basic Metabolic Panel; Complete Time: 15:34 rn 07/15 14:00 Order name: CBC with Diff; Complete Time: 14:29 rn 07/15 14:00 Order name: High Sensitivity Troponin; Complete Time: 15:34 rn 07/15 14:00 Order name: Protime (+inr); Complete Time: 15:11 rn 07/15 14:00 Order name: Ptt, Activated; Complete Time: 15:11 07/15 15:27 Order name: CREATININE WHOLE BLOOD; Complete Time: 15:34 [facility] 07/15 15:29 Order name: CREATININE WHOLE BLOOD [facility] 07/15 18:32 Order name: Comprehensive Metabolic Panel [facility] 07/15 18:32 Order name: Comprehensive Metabolic Panel [facility] 07/15 18:32 Order name: Lipid Profile [facility] 07/15 18:32 Order name: Lipid Profile [facility] 07/15 18:32 Order name: Magnesium [facility] 07/15 18:32 Order name: Magnesium [facility] 07/15 18:32 Order name: CBC with Automated Diff [facility] 07/15 18:32 Order name: CBC with Automated Diff [facility] 07/15 18:33 Order name: Phosphorus [facility] 07/15 18:33 Order name: Phosphorus [facility] 07/15 18:33 Order name: Troponin High Sensitivity [facility] 07/15 18:33 Order name: Troponin High Sensitivity [facility] 07/15 18:33 Order name: Troponin High Sensitivity [facility] 07/15 18:33 Order name: Troponin High Sensitivity [facility] 07/15 18:35 Order name: CBC with Automated Diff [facility] 07/15 18:35 Order name: Comprehensive Metabolic Panel [facility] 07/15 18:35 Order name: Lipid Profile [facility] 07/15 18:35 Order name: Magnesium [facility] 07/15 14:00 Order name: CT Head Angio; Complete Time: 15:34 rn 07/15 14:00 Order name: CT Neck Angio; Complete Time: 15:34 rn 07/15 14:00 Order name: CT Stroke Brain w/o Contrast; Complete Time: 14:29 rn 07/15 14:00 Order name: Stroke CXR 1 View; Complete Time: 17:51 rn 07/15 16:22 Order name: Brain Wo Cont; Complete Time: 17:51 [facility] 07/15 18:32 Order name: Echo with Doppler [facility] 07/15 18:33 Order name: Chest Pa And Lat (2 Views) [facility] 07/15 14:00 Order name: EKG; Complete Time: 14:01 rn 07/15 18:32 Order name: IRF Screen [facility] 07/15 18:32 Order name: Physical Therapy Consult [facility] 07/15 18:32 Order name: EKG Electrocardiogram [facility] 07/15 18:32 Order name: Speech Therapy Consult [facility] 07/15 14:00 Order name: Accucheck; Complete Time: 14:39 rn 07/15 14:00 Order name: Cardiac monitoring; Complete Time: 14:39 rn 07/15 14:00 Order name: EKG - Nurse/Tech; Complete Time: 14:39 rn 07/15 14:00 Order name: IV Saline Lock; Complete Time: 14:39 rn 07/15 14:00 Order name: Labs collected and sent; Complete Time: 14:40 rn 07/15 14:00 Order name: NPO; Complete Time: 14:10 rn 07/15 14:00 Order name: O2 Per Protocol; Complete Time: 14:10 rn 07/15 14:00 Order name: O2 Sat Monitoring; Complete Time: 14:10 rn 07/15 14:00 Order name: Stroke Swallow Screen; Complete Time: 14:40 rn 07/15 14:32 Order name: Labs - recollect needed: recollect the chemistries /hemolyzed; Complete eb Time: 15:24 EC:50 Rate is 53 beats/min. Rhythm is regular. QRS [place] is Normal. GA interval is normal. QRS rn interval is normal. QT interval is normal. No Q waves. T waves are Normal. No ST changes noted. Clinical impression: Sinus bradycardia. Interpreted by me. Reviewed by me. Administered Medications: 15:30 Drug: Aspirin PO Chewable Tablet 324 mg PO once; 81 mg tablets x 4 Route: PO; rs5 16:01 Follow up: Response: No adverse reaction rs5 15:30 Drug: foLIC Acid IVPB 1 mg IVPB once Route: IVPB; Site: right hand; rs5 16:01 Follow up: Response: No adverse reaction rs5 Disposition Summary: 07/15/23 15:36 Hospitalization Ordered Notes: Hospitalization Status: Observation rn Provider: Eduard Bond [facility]n Condition: Stable rn Problem: new rn Symptoms: have improved rn Bed/Room Type: Standard rn Room Assignment: 401(07/15/23 19:26) vc1 Diagnosis - Transient cerebral ischemic attack, unspecified rn - Aphasia rn Forms: - Medication Reconciliation Form rn - SBAR form rn - Leadership Thank You Letter rn NIH Stroke Scale - NIH Stroke Score Date: 07/15/2023 Time: 13:55 Total Score = 0 10. Dysarthria (speech clarity - read or repeat words) - 0(Normal) 11. Extinction and Inattention (visual/tactile/auditory/spatial/personal) - 0(No abnormality) 1a. Level of Consciousness (LOC) - 0(Alert) 1b. Level of Consciousness (LOC) (Month \T\ Age) - 0(Both) 1c. LOC Commands (Open \T\ Closes Eyes/Aba Tutor) - 0(Both) 2. Best Gaze (Lateral Gaze Paresis) - 0(Normal) 3. Visual Field Loss - 0(No visual loss) 4. Facial Palsy - 0(Normal) 5a. Left Arm: Motor (10-second hold) - 0(No drift) 5b. Right Arm: Motor (10-second hold) - 0(No drift) 6a. Left Leg: Motor (5-second hold - always test supine) - 0(No drift) 6b. Right Leg: Motor (5-second hold - always test supine) - 0(No drift) 7. Limb Ataxia (finger/nose \T\ heel/mcdermott - test with eyes open) - 0(Absent) 8. Sensory Loss (pinprick arms/legs/face) - 0(Normal) 9. Best Language: Aphasia (description/naming/reading) - 0(No aphasia) Initials: rs5 NIH Stroke Scale - NIH Stroke Score Date: 07/15/2023 Time: 14:00 Total Score = 0 10. Dysarthria (speech clarity - read or repeat words) - 0(Normal) 11. Extinction and Inattention (visual/tactile/auditory/spatial/personal) - 0(No abnormality) 1a. Level of Consciousness (LOC) - 0(Alert) 1b. Level of Consciousness (LOC) (Month \T\ Age) - 0(Both) 1c. LOC Commands (Open \T\ Closes Eyes/Aba Tutor) - 0(Both) 2. Best Gaze (Lateral Gaze Paresis) - 0(Normal) 3. Visual Field Loss - 0(No visual loss) 4. Facial Palsy - 0(Normal) 5a. Left Arm: Motor (10-second hold) - 0(No drift) 5b. Right Arm: Motor (10-second hold) - 0(No drift) 6a. Left Leg: Motor (5-second hold - always test supine) - 0(No drift) 6b. Right Leg: Motor (5-second hold - always test supine) - 0(No drift) 7. Limb Ataxia (finger/nose \T\ heel/mcdermott - test with eyes open) - 0(Absent) 8. Sensory Loss (pinprick arms/legs/face) - 0(Normal) 9. Best Language: Aphasia (description/naming/reading) - 0(No aphasia) Initials: rs5 NIH Stroke Scale - NIH Stroke Score Date: 07/15/2023 Time: 14:02 Total Score = 0 10. Dysarthria (speech clarity - read or repeat words) - 0(Normal) 11. Extinction and Inattention (visual/tactile/auditory/spatial/personal) - 0(No abnormality) 1a. Level of Consciousness (LOC) - 0(Alert) 1b. Level of Consciousness (LOC) (Month \T\ Age) - 0(Both) 1c. LOC Commands (Open \T\ Closes Eyes/Aba Tutor) - 0(Both) 2. Best Gaze (Lateral Gaze Paresis) - 0(Normal) 3. Visual Field Loss - 0(No visual loss) 4. Facial Palsy - 0(Normal) 5a. Left Arm: Motor (10-second hold) - 0(No drift) 5b. Right Arm: Motor (10-second hold) - 0(No drift) 6a. Left Leg: Motor (5-second hold - always test supine) - 0(No drift) 6b. Right Leg: Motor (5-second hold - always test supine) - 0(No drift) 7. Limb Ataxia (finger/nose \T\ heel/mcdermott - test with eyes open) - 0(Absent) 8. Sensory Loss (pinprick arms/legs/face) - 0(Normal) 9. Best Language: Aphasia (description/naming/reading) - 0(No aphasia) Initials: get[place]w NIH Stroke Scale - NIH Stroke Score Date: 07/15/2023 Time: 14:30 Total Score = 0 10. Dysarthria (speech clarity - read or repeat words) - 0(Normal) 11. Extinction and Inattention (visual/tactile/auditory/spatial/personal) - 0(No abnormality) 1a. Level of Consciousness (LOC) - 0(Alert) 1b. Level of Consciousness (LOC) (Month \T\ Age) - 0(Both) 1c. LOC Commands (Open \T\ Closes Eyes/Aba Tutor) - 0(Both) 2. Best Gaze (Lateral Gaze Paresis) - 0(Normal) 3. Visual Field Loss - 0(No visual loss) 4. Facial Palsy - 0(Normal) 5a. Left Arm: Motor (10-second hold) - 0(No drift) 5b. Right Arm: Motor (10-second hold) - 0(No drift) 6a. Left Leg: Motor (5-second hold - always test supine) - 0(No drift) 6b. Right Leg: Motor (5-second hold - always test supine) - 0(No drift) 7. Limb Ataxia (finger/nose \T\ heel/mcdermott - test with eyes open) - 0(Absent) 8. Sensory Loss (pinprick arms/legs/face) - 0(Normal) 9. Best Language: Aphasia (description/naming/reading) - 0(No aphasia) Initials: rs5 NIH Stroke Scale - NIH Stroke Score Date: 07/15/2023 Time: 15:00 Total Score = 0 10. Dysarthria (speech clarity - read or repeat words) - 0(Normal) 11. Extinction and Inattention (visual/tactile/auditory/spatial/personal) - 0(No abnormality) 1a. Level of Consciousness (LOC) - 0(Alert) 1b. Level of Consciousness (LOC) (Month \T\ Age) - 0(Both) 1c. LOC Commands (Open \T\ Closes Eyes/Aba Tutor) - 0(Both) 2. Best Gaze (Lateral Gaze Paresis) - 0(Normal) 3. Visual Field Loss - 0(No visual loss) 4. Facial Palsy - 0(Normal) 5a. Left Arm: Motor (10-second hold) - 0(No drift) 5b. Right Arm: Motor (10-second hold) - 0(No drift) 6a. Left Leg: Motor (5-second hold - always test supine) - 0(No drift) 6b. Right Leg: Motor (5-second hold - always test supine) - 0(No drift) 7. Limb Ataxia (finger/nose \T\ heel/mcdermott - test with eyes open) - 0(Absent) 8. Sensory Loss (pinprick arms/legs/face) - 0(Normal) 9. Best Language: Aphasia (description/naming/reading) - 0(No aphasia) Initials: [facility] NIH Stroke Scale - NIH Stroke Score Date: 07/15/2023 Time: 16:01 Total Score = 0 10. Dysarthria (speech clarity - read or repeat words) - 0(Normal) 11. Extinction and Inattention (visual/tactile/auditory/spatial/personal) - 0(No abnormality) 1a. Level of Consciousness (LOC) - 0(Alert) 1b. Level of Consciousness (LOC) (Month \T\ Age) - 0(Both) 1c. LOC Commands (Open \T\ Closes Eyes/Aba Tutor) - 0(Both) 2. Best Gaze (Lateral Gaze Paresis) - 0(Normal) 3. Visual Field Loss - 0(No visual loss) 4. Facial Palsy - 0(Normal) 5a. Left Arm: Motor (10-second hold) - 0(No drift) 5b. Right Arm: Motor (10-second hold) - 0(No drift) 6a. Left Leg: Motor (5-second hold - always test supine) - 0(No drift) 6b. Right Leg: Motor (5-second hold - always test supine) - 0(No drift) 7. Limb Ataxia (finger/nose \T\ heel/mcdermott - test with eyes open) - 0(Absent) 8. Sensory Loss (pinprick arms/legs/face) - 0(Normal) 9. Best Language: Aphasia (description/naming/reading) - 0(No aphasia) Initials: rs5 NIH Stroke Scale - NIH Stroke Score Date: 07/15/2023 Time: 17:05 Total Score = 0 10. Dysarthria (speech clarity - read or repeat words) - 0(Normal) 11. Extinction and Inattention (visual/tactile/auditory/spatial/personal) - 0(No abnormality) 1a. Level of Consciousness (LOC) - 0(Alert) 1b. Level of Consciousness (LOC) (Month \T\ Age) - 0(Both) 1c. LOC Commands (Open \T\ Closes Eyes/Aba Tutor) - 0(Both) 2. Best Gaze (Lateral Gaze Paresis) - 0(Normal) 3. Visual Field Loss - 0(No visual loss) 4. Facial Palsy - 0(Normal) 5a. Left Arm: Motor (10-second hold) - 0(No drift) 5b. Right Arm: Motor (10-second hold) - 0(No drift) 6a. Left Leg: Motor (5-second hold - always test supine) - 0(No drift) 6b. Right Leg: Motor (5-second hold - always test supine) - 0(No drift) 7. Limb Ataxia (finger/nose \T\ heel/mcdermott - test with eyes open) - 0(Absent) 8. Sensory Loss (pinprick arms/legs/face) - 0(Normal) 9. Best Language: Aphasia (description/naming/reading) - 0(No aphasia) Initials: rs5 Signatures: Dispatcher [employer] EDRikki Grewal MD MD rn Botello, Elizabeth eb Lewis, Lynsay, RN RN ll1 Theresa Torres RN RN vc1 Catherine Mckee rv1 Mckinney, Rehan, RN RN rs5 Corrections: (The following items were deleted from the chart) 16:22 15:11 MR STROKE PROTOCOL+MRI.RAD.BRZ ordered. EDMS EDMS 18:34 18:32 RPR ordered. EDMS EDMS 18:34 18:32 Anti-Thrombin III Activity ordered. EDMS EDMS 18:34 18:32 C-ANCA Anti-Proteinase 3 ordered. EDMS EDMS 18:34 18:32 Cardiolipin Antibodies G,M ordered. EDMS EDMS 18:34 18:32 Factor V Leiden Mutation ordered. EDMS EDMS 18:34 18:32 Homocysteine ordered. EDMS EDMS 18:34 18:32 Miscellaneous Test Lab ordered. EDMS EDMS 18:34 18:32 P-ANCA Anti-Myeloperoxidase Ab ordered. EDMS EDMS 18:34 18:32 Protein C Antigen ordered. EDMS EDMS 18:34 18:32 Protein Electo w/M Armond Serum ordered. EDMS EDMS 18:34 18:32 Protein S (Total ordered. EDMS EDMS 18:35 18:32 Vitamin B12 Level ordered. EDMS EDMS 18:35 18:32 Vitamin D, 25 (OH), TOTAL ordered. EDMS EDMS 18:35 18:32 PROTHROMBIN GENE ANALYSIS (F2) ordered. EDMS EDMS 19:06 15:36 rn rv1 19:26 19:06 420 rv1 vc1
--- NOTE | 2023-07-15 15:56 | RAD REPORT ---
EXAM DESCRIPTION: RADChest Single View07/15/2023 3:02 pm CLINICAL HISTORY: aphasia COMPARISON: Chest Single View dated 04/29/2023; Chest Single View dated 12/25/2021; Abdomen 1 View (KUB ) dated 05/04/2019; Chest Single View dated 05/04/2019 TECHNIQUE: Portable AP view of the chest. FINDINGS: The lungs are clear apart from stable bilateral basilar streaky atelectasis. Right medicat ion port placed. Left axillary surgical clips in place. No pneumothorax or effusion. The cardiomedia stinal contours are unremarkable. IMPRESSION: No acute cardiopulmonary process.
--- NOTE | 2023-07-15 17:49 | RAD REPORT ---
EXAM DESCRIPTION: MRI - Brain Wo Cont - 07/15/2023 5:12 pm CLINICAL HISTORY: STROKE ALERT COMPARISON: Head CT and CT angiogram of the same day. TECHNIQUE: Multiplanar multisequence MRI of the brain performed without IV contrast. FINDINGS: No evidence of acute infarct or other diffusion signal abnormality. No evidence of acute intracranial hemorrhage or abnormal extra-axial fluid collections. Mild diffuse parenchymal volume loss. Ventricular caliber otherwise within normal for age. Midline st ructures are unremarkable. Scattered subcortical and deep white matter T2/FLAIR hyperintensities, nonspecific, suggestive of chr onic small vessel ischemic changes. No mass effect or midline shift. Major vascular flow voids are preserved. Scattered paranasal sinus mucosal thickening and right maxillary sinus mucosal. IMPRESSION: No acute intracranial process. No evidence of ventriculomegaly or mass effect. Chronic findings as above.
[2023-07-15] MEDS ORDERED: ACETAMINOPHEN 500 MG TAB PO PRN (18:28)
[2023-07-15] MEDS ORDERED: ONDANSETRON 4 MG/2 ML VIAL IV PRN (18:28)
--- NOTE | 2023-07-15 18:28 | P.HP ---
Certification for Inpatient Patient admitted to: Inpatient With expected LOS: >2 Midnights Patient will require the following post-hospital care: None Practitioner: I am a practitioner with admitting privileges, knowledge of patient current condition, hospital course, and medical plan of care. Services: Services provided to patient in accordance with Admission requirements found in Title 42 Section 412.3 of the Code of Federal Regulations Patient History Date of Service: 07/15/23 Reason for admission: Expressive aphasia History of Present Illness: Patient is an 87-year-old female who presents to the hospital with expressive aphasia. Patient apparently had her blood pressure medicines increased yesterday. Afterwards she was feeling a little bit better. She went to sleep last night without any difficulty. This morning she was doing okay but her noticed that she was not vocalizing her words properly. He brought her into the hospital for evaluation. Patient had code stroke called. CT scan of the brain was negative. Patient was given antiplatelet therapy and statin therapy. Her blood pressure slightly elevated. Patient will be admitted to the hospital for TIA as her symptoms have completely resolved. Her states she is back to her baseline. Patient's MRI has also been done with out any acute abnormality. Patient will be admitted to the hospital for observation stay. Allergies Sulfa (Sulfonamide Antibiotics) Allergy (Intermediate, Verified 06/01/17 15:12) Anaphylaxis Home Medications: Atorvastatin Calcium [Lipitor*] 20 mg PO BEDTIME 06/14/13 Folic/Arginine/B12/B6/B.pepper [Folbee Ar Tablet] 1 tab PO DAILY 06/14/13 LORazepam [Ativan*] 0.5 mg PO DAILY 06/14/13 ramipriL [Altace*] 10 mg PO DAILY 06/14/13 Metoprolol Tartrate [Lopressor*] 50 mg PO BID 09/20/15 Pantoprazole Sodium [Protonix] 40 mg PO BID #60 tablet. 07/08/17 Ascorbic Acid [Vitamin C] 500 mg PO DAILY 04/30/23 Aspirin 81 mg PO DAILY 04/30/23 Biotin/Lutein [Biotin Plus 5,000 Mcg Tablet] 5,000 mg PO DAILY 04/30/23 Cholecalciferol (Vitamin D3) [Vitamin D3] 1,000 unit PO DAILY 04/30/23 Clopidogrel Bisulfate [Plavix*] 75 mg PO DAILY 04/30/23 Ferrous Sulfate [Iron] 325 mg PO DAILY 04/30/23 Magnesium Oxide [Mag 0X*] 400 mg PO DAILY 04/30/23 Mv-Min/FA/Vit K/Lutein/Zeaxant [Preservision Areds 2 Plus Mv] 1 cap PO DAILY 04/30/23 cephALEXin [Cephalexin] 500 mg PO TID 5 Days #15 cap 05/01/23 - Past Medical/Surgical History Diabetic: No -: TIA -: diverticulitis -: polycystic kidney disease -: seasonal allergies -: cataracts -: breast CA -: hypercholestermia -: Left and rt mastectomy -: uterine prolapse -: madeleine cataract sx - Family History Father Medical History: Hypertension Notes: aneurysm Mother Medical History: Heart disease, Kidney disease - Social History Alcohol use: Yes CD- Drugs: No Caffeine use: Yes Review of Systems 10-point ROS is otherwise unremarkable Physical Examination - Physical Exam General: Alert, In no apparent distress, Oriented x3 HEENT: Atraumatic, PERRLA, Mucous membr. moist/pink, EOMI, Sclerae nonicteric Neck: Supple, 2+ carotid pulse no bruit, No LAD, Without JVD or thyroid abnormality Respiratory: Clear to auscultation bilaterally, Normal air movement Cardiovascular: Regular rate/rhythm, Normal S1 S2 Gastrointestinal: Normal bowel sounds, No tenderness Musculoskeletal: No tenderness Integumentary: No rashes Neurological: Normal gait, Normal speech, Normal tone, Normal affect, Abnormal strength (Generalized weakness) Lymphatics: No axilla or inguinal lymphadenopathy - Studies Laboratory Data (last 24 hrs) 07/15/23 07/15/23 07/15/23 14:50 14:19 14:19 WBC 8.80 Hgb 10.5 L Hct 30.9 L Plt Count 255 PT 11.3 INR 1.03 APTT 28.8 Sodium 131 L Potassium 4.0 BUN 29 H Creatinine 1.19 H Glucose 91 Assessment & Plan - Problems (Diagnosis) (1) TIA (transient ischemic attack) Current Visit: Yes Status: Acute (2) Hypertensive disorder, systemic arterial Current Visit: No Status: Active (3) Afib Current Visit: No Status: Chronic Qualifiers: (4) Hyperlipidemia Current Visit: Yes Status: Chronic - Plan 1. MRI of the brain 2. Antiplatelet and statin therapy 3. Lipid profile 4. Physical therapy and speech therapy consultation 5. DVT prophylaxis 6. Neurochecks every 4 hours 7. Reassess stroke scale 8. GI and DVT prophylaxis Discharge Plan: Home Plan to discharge in: Greater than 2 days - Advance Directives Does patient have a Living Will: No Does patient have a Durable POA for Healthcare: No - Code Status/Comfort Care Code Status Assessed: Yes Code Status: Full Code Critical Care: No Time Spent Managing PTS Care (In Minutes): 45
[2023-07-15] MEDS: APIXABAN 5 MG TABLET PO SCH (23:26)
[2023-07-15] MEDS: ATORVASTATIN 40 MG TAB PO SCH (23:26)
[2023-07-15] MEDS: NA CHLORIDE 0.9% 1,000 ML IV SCH (23:26)
[2023-07-16] VITALS: BMI 24.7
[2023-07-16 03:40] LABS: Absolute Lymphocytes (CBC) 1.3 K/uL (0.7-4.9); Hematocrit 30.7 % (36.0-45.0); Lymphocytes % 22.1 % (15.3-44.8); MCV 85.3 fL (80-100); MPV 7.5 fL (7.6-11.3); Platelets 200 thou/uL (152-406)
[2023-07-16 04:07] LABS: Albumin 2.5 g/dL (3.4-5.0); Bilirubin Total 0.4 mg/dL (0.2-1.0); Magnesium 1.9 mg/dL (1.6-2.4); Phosphorus 3.5 mg/dL (2.5-4.9); Potassium 3.9 mEq/L (3.5-5.1); Troponin High Sensitivity 13.9 pg/mL (<58.9)
--- NOTE | 2023-07-16 08:18 | P.PN ---
Subjective Date of Service: 07/16/23 Chief Complaint: Expressive aphasia Physical Examination - Vital Signs Temperature: 97.5 F Blood Pressure: 166/77 Pulse: 61 Respirations: 16 Pulse Ox (%): 93 - Studies Laboratory Data (last 24 hrs) 07/15/23 07/15/23 07/15/23 14:50 14:19 14:19 WBC 8.80 Hgb 10.5 L Hct 30.9 L Plt Count 255 PT 11.3 INR 1.03 APTT 28.8 Sodium 131 L Potassium 4.0 BUN 29 H Creatinine 1.19 H Glucose 91
--- NOTE | 2023-07-16 08:20 | P.DS ---
Admission Date: 07/15/23 Discharge Date: 07/16/23 Disposition: ROUTINE DISCHARGE Discharge Condition: GOOD Reason for Admission: Expressive aphasia Brief History of Present Illness: 87-year-old female who presents to the hospital with expressive aphasia. Patient apparently had her blood pressure medicines increased yesterday. Afterwards she was feeling a little bit better. She went to sleep last night without any difficulty. This morning she was doing okay but her noticed that she was not vocalizing her words properly. He brought her into the hospital for evaluation. Patient had code stroke called. CT scan of the brain was negative. Patient was given antiplatelet therapy and statin therapy. Her blood pressure slightly elevated. Patient will be admitted to the hospital for TIA as her symptoms have completely resolved. Her states she is back to her baseline. Patient's MRI has also been done with out any acute abnormality. Patient will be admitted to the hospital for observation stay. - Physical Exam General: Alert, In no apparent distress, Oriented x3 HEENT: Atraumatic, PERRLA, Mucous membr. moist/pink, EOMI, Sclerae nonicteric Neck: Supple, 2+ carotid pulse no bruit, No LAD, Without JVD or thyroid abnormality Respiratory: Clear to auscultation bilaterally, Normal air movement Cardiovascular: Regular rate/rhythm, Normal S1 S2 Gastrointestinal: Normal bowel sounds, No tenderness Musculoskeletal: No tenderness Integumentary: No rashes Neurological: Normal gait, Normal speech, Normal tone, Normal affect, Abnormal strength (Generalized weakness) Lymphatics: No axilla or inguinal lymphadenopat Hospital Course: 87 year-old female patient presented with expressive aphasia, Was noted to have TIA. Condition improved with time, anti platelet therapy. Patient tolerating diet, stable for discharge to home with follow-up appointment with primary care physician. PROBLEM: TIA expressive aphasia-resolved Continue home medicines as previously prescribed GOAL: Clear understanding of disease process CT scan of the brain was negative. MRI has also been done with out any acute abnormality. Patient was given antiplatelet therapy and statin therapy during hosptial stay INSTRUCTIONS: Physician Discharge Instructions: -Follow-up with PCP in 1 to 2 weeks -Please call Dr. Bond at [phone] if any questions regarding hospital stay -Please call nursing station at [phone] if any nursing or medication questions -Return to the emergency room if symptoms worsen Diet: ADA, low sodium Activity: Fall precautions Vital Signs/Physical Exam: Temp Pulse Resp BP Pulse Ox 97.5 F 61 16 166/77 H 93 07/16/23 08:17 07/16/23 08:17 07/16/23 08:17 07/16/23 08:17 07/16/23 08:17 Laboratory Data at Discharge: WBC Cancelled 07/16/23 06:00 Hgb Cancelled 07/16/23 06:00 Hct Cancelled 07/16/23 06:00 Plt Count Cancelled 07/16/23 06:00 PT 11.3 SECONDS (9.5-12.5) 07/15/23 14:19 INR 1.03 07/15/23 14:19 APTT 28.8 SECONDS (24.3-36.9) 07/15/23 14:19 Sodium Cancelled 07/16/23 06:00 Potassium Cancelled 07/16/23 06:00 BUN Cancelled 07/16/23 06:00 Creatinine Cancelled 07/16/23 06:00 Glucose Cancelled 07/16/23 06:00 Phosphorus 3.5 mg/dL (2.5-4.9) 07/16/23 03:16 Magnesium Cancelled 07/16/23 06:00 Total Bilirubin Cancelled 07/16/23 06:00 AST Cancelled 07/16/23 06:00 ALT Cancelled 07/16/23 06:00 Alkaline Phosphatase Cancelled 07/16/23 06:00 Triglycerides Cancelled 07/16/23 06:00 Cholesterol Cancelled 07/16/23 06:00 HDL Cholesterol Cancelled 07/16/23 06:00 Cholesterol/HDL Ratio Cancelled 07/16/23 06:00 Home Medications: Apixaban [Eliquis] 2.5 mg PO BID #60 tablet 07/16/23 Aspirin [Aspirin EC 81 MG] 81 mg PO DAILY 07/16/23 Atorvastatin Calcium [Lipitor] 40 mg PO BEDTIME #30 tab 07/16/23 Clopidogrel Bisulfate [Plavix*] 75 mg PO DAILY 07/16/23 Folic Acid/Vit B Complex and C [Folbee Plus Tablet] See Rx Instructions .ROUTE .COMPLEX 07/16/23 LORazepam [Ativan*] 0.5 mg PO DAILY 07/16/23 Mesalamine 2 tab PO DAILY 07/16/23 Metoprolol Tartrate 100 mg PO BID 07/16/23 Ramipril [Altace] 10 mg PO DAILY 07/16/23 New Medications: Apixaban [Eliquis] 2.5 mg PO BID #60 tablet Atorvastatin Calcium [Lipitor] 40 mg PO BEDTIME #30 tab Physician Discharge Instructions: 87 year-old female patient presented with expressive aphasia, Was noted to have TIA. Condition improved with time, anti platelet therapy. Patient tolerating diet, stable for discharge to home with follow-up appointment with primary care physician. PROBLEM: TIA expressive aphasia-resolved Continue home medicines as previously prescribed GOAL: Clear understanding of disease process CT scan of the brain was negative. MRI has also been done with out any acute abnormality. Patient was given antiplatelet therapy and statin therapy during hosptial stay Diet: ADA, low sodium Activity: Fall precautions -DC IV and DC home -Follow-up with PCP in 1 to 2 weeks; adjusting blood pressure medications -Follow-up with neurology and cardiology in 1 to 2 weeks -Please call Dr. Bond at [phone] if any questions regarding hospital stay -Please call nursing station at [phone] if any nursing or medication questions -Return to the emergency room if symptoms worsen -OOB and ambulate Followup: Brandon Johnson MD [Primary Care Provider] - Time spent managing pt's care (in minutes): 55
[2023-07-16] MEDS: CLOPIDOGREL 75 MG TABLET PO SCH (08:41)
[2023-07-16] MEDS: ASPIRIN EC 81 MG TAB PO SCH ×2 (08:41→09:00)
[2023-07-16] MEDS: ATORVASTATIN 20 MG TAB PO SCH (09:00)
[2023-07-16] MEDS ORDERED: CLOPIDOGREL 75 MG TABLET PO SCH (09:00)
[2023-07-16] MEDS: HOME MED 1 EA UNK (Mesalamine [Mesalamine] 1.2 GM Tablet.Dr) PO SCH (09:00)
[2023-07-16 09:09] VITALS: O2SAT 93
[2023-07-16 09:36] VITALS: BP 169/73; TEMP 97
[2023-07-16] MEDS: ramipriL 5 MG CAP PO SCH (10:14)
[2023-07-16] MEDS: METOPROLOL TAR 50 MG TAB PO SCH (10:18)
--- NOTE | 2023-07-18 14:38 | EKG ---
Test Date: 2023-07-15 Test Time: 14:38:18 Sausage Wrapper: ANKUR MEASUREMENT RESULTS: Intervals: Rate: 53 GA: 194 QRSD: 74 QT: 446 QTc: 418 [place]: P: 106 GA: 194 QRS: 50 T: 59 INTERPRETIVE STATEMENTS: Sinus bradycardia with premature atrial complexes Otherwise normal ECG Compared to ECG 04/29/2023 20:25:25 Atrial premature complex(es) now present Sinus tachycardia no longer present Electronically Signed On 07-18-23 14:29:41 STOCK REPAIRER by Brody Baig
== END 2023-07-16 13:00 | disposition home or self-care (01) ==
LOC: ER 13:45 → ERHOLD 18:28 → 4TH 19:19
PROVIDERS: ADMIT Hospitalist; ATTEND Hospitalist
DX: G45.9 Transient cerebral ischemic attack, unspecified (principal); R47.01 Aphasia; I10 Essential (primary) hypertension; I48.11 Longstanding persistent atrial fibrillation; E78.5 Hyperlipidemia, unspecified; F41.9 Anxiety disorder, unspecified; R29.700 NIHSS score 0; Z88.2 Allergy status to sulfonamides; Z85.3 Personal history of malignant neoplasm of breast; Z79.01 Long term (current) use of anticoagulants
CPT/HCPCS: 85025 ×2; 80048; 36415; 83735; 84100; 85610; 80061; 82565; 85730; 84484 ×2; 80053; 70496; 70498; 70450; 71045; 70551; 97116; 97161; 94760; Q9967; J7030; 93005; G0378

== ENCOUNTER 2023-07-17 14:43 | Observation (INO) | payer OTHER, BC ==
[2023-07-17] MEDS ORDERED: NA CHLORIDE 0.9% 1,000 ML ONE (15:10)
[2023-07-17] MEDS ORDERED: FOLIC ACID 5 MG/ML VIAL ONE (15:10)
[2023-07-17 15:24] LABS: Absolute Lymphocytes (CBC) 1.9 K/uL (0.7-4.9); Hematocrit 32.7 % (36.0-45.0); Lymphocytes % 21.4 % (15.3-44.8); MPV 7.5 fL (7.6-11.3); Platelets 286 thou/uL (152-406); RBC Red Blood Cell Count 3.85 M/uL (3.86-4.86)
[2023-07-17 15:25] LABS: Protime INR 1.12
[2023-07-17 15:36] LABS: Bilirubin Direct 0.1 mg/dL (0-0.2); Bilirubin Indirect, Calculated 0.3 mg/dL (0.2-0.8); Bilirubin Total 0.4 mg/dL (0.2-1.0); Magnesium 1.6 mg/dL (1.6-2.4); Potassium 3.9 mEq/L (3.5-5.1); Protein, Total 7.3 g/dL (6.4-8.2); Troponin High Sensitivity 19.7 pg/mL (<58.9)
--- NOTE | 2023-07-17 15:55 | RAD REPORT ---
EXAM DESCRIPTION: CT - Ct Stroke Brain Wo Cont - 07/17/2023 3:42 pm CLINICAL HISTORY: aphasia COMPARISON: May 2023 TECHNIQUE: Computed axial tomography of the head was obtained. All CT scans are performed using dose optimization technique as appropriate and may include automated exposure control or mA/KV adjustment according to patient size. FINDINGS: An intracranial bleed is not seen . The ventricles are normal in caliber. No extra-axial fluid collection is noted. Mild low-density within periventricular, deep and subcortical white matter likely ischemic changes se condary to small vessel disease Sinusitis IMPRESSION: No acute intracranial abnormality is seen. If patient's symptoms persist MRI of the bra in would be recommended Dr Oliveros of the emergency room was notified at 350 PM July 17, 2023
--- NOTE | 2023-07-17 16:09 | RAD REPORT ---
EXAM DESCRIPTION: CTHead angio07/17/2023 3:43 pm CLINICAL HISTORY: aphasia COMPARISON: 2015 MRA brain TECHNIQUE: 100 cc Isovue [address] angiogram of the head was obtained. 3D MIPS reconstruction performed. All CT scans are performed using dose optimization technique as appropriate and may include automated exposure control or mA/KV adjustment according to patient size. FINDINGS: The basilar, anterior cerebral, middle cerebral and posterior cerebral arteries do not dem onstrate a significant stenosis origin posterior cerebral arteries Mild calcified plaque distal internal carotid arteries An aneurysm is not seen No large vessel occlusion IMPRESSION: No significant abnormality is displayed
--- NOTE | 2023-07-17 16:09 | RAD REPORT ---
EXAM DESCRIPTION: Ric Angio07/17/2023 3:45 pm CLINICAL HISTORY: aphasia COMPARISON: 2015 MRA neck TECHNIQUE: 100 cc Isovue [address] angiogram of the neck was obtained. 3D MIPS reconstruction performed. All CT scans are performed using dose optimization technique as appropriate and may include automated exposure control or mA/KV adjustment according to patient size. FINDINGS: Visualized aortic arch and great vessels unremarkable Mild plaque is present within common carotid, internal carotid and external carotid arteries bilatera lly Left vertebral artery is hypoplastic. It probably terminates into the PICA Vertebral arteries unremarkable No dissection is seen. No high-grade stenosis Mild anterior subluxation C3 on C4. Mild posterior subluxation C4 on C5 and C5 on C6 IMPRESSION: No significant abnormality displayed Nascet crieria Mild stenosis 0 to 49 % Moderate stenosis 50-69% Severe stenosis 70-99%
[2023-07-17 16:34] LABS: Urine Bilirubin NEGATIVE (Negative); Urine Blood Negative (Negative); Urine Clarity Clear (Clear); Urine Color Colorless (Yellow); Urine Glucose NEGATIVE (Negative); Urine Protein NEGATIVE (Negative); Urine Urobilinogen Normal (Normal)
--- NOTE | 2023-07-17 16:39 | RAD REPORT ---
EXAM DESCRIPTION: Nitin Single View07/17/2023 4:29 pm CLINICAL HISTORY: cough COMPARISON: July 15, 2023 FINDINGS: The lungs appear clear of acute infiltrate. The heart is mildly enlarged. Large hiatal he rnia. Central venous catheter in place
--- NOTE | 2023-07-17 17:14 | ER ---
Nurse's Notes [facility] [place] [place] [facility] Name: Alexa Mcintyre Age: 87 yrs Sex: Female : 1935 Arrival Date: 07/17/2023 Time: 14:43 Bed 15 Private MD: Brandon Johnson E Diagnosis: Transient cerebral ischemic attack, unspecified;Aphasia Presentation: 07/17 14:48 Chief complaint: Spouse and/or significant other states: Trouble talking, seen Tuesday, nj1 stayed overnight, discharged home yesterday, dx with TIA. states her speech is now the same as Tuesday, onset at about 2:30pm. Takes time to find words. Coronavirus screen: Vaccine status: Patient reports being unvaccinated. Ebola Screen: Patient denies travel to an Ebola-affected area in the 21 days before illness onset. No acute neurological deficit is noted. Initial Sepsis Screen: Does the patient meet any 2 criteria? No. Patient's initial sepsis screen is negative. Does the patient have a suspected source of infection? No. Patient's initial sepsis screen is negative. Risk Assessment: Do you want to hurt yourself or someone else? Patient reports no desire to harm self or others. Onset of symptoms was July 17, 2023 at 14:30. 14:48 Method Of Arrival: Ambulatory [facility] 14:48 Acuity: ULICES 3 nj1 20:05 No acute neurological deficit is noted. cp4 Triage Assessment: 14:55 Neuro: Level of Consciousness is awake, alert, obeys commands, Oriented to person, nj1 place, time, situation, Visual Merchandising Manager are equal bilaterally Moves all extremities. Gait is steady, Speech is normal, Facial symmetry appears normal, Pupils are PERRLA. 20:03 The onset of the patients symptoms was less than three hours ago. General: Appears in cp4 no apparent distress. Behavior is calm, cooperative, appropriate for age. 20:04 The onset of the patients symptoms was. cp4 20:04 The onset of the patients symptoms was July 17, 2023 at 14:30. cp4 20:04 Neuro: Reports difficulty speaking. cp4 Historical: - Allergies: 14:54 Sulfa (Sulfonamide Antibiotics); nj1 - PMHx: 14:54 Anxiety; BREAST CA; Diverticulitis; Hyperlipidemia; Hypertension; TIA; nj1 - Immunization history:: Client reports having NOT received the Covid vaccine. - Social history:: Smoking status: Patient denies any tobacco usage or history of. - Family history:: not pertinent. Screenin:28 [facility] ED Fall Risk Assessment (Adult) History of falling in the last 3 months, cp4 including since admission No falls in past 3 months (0 pts) Confusion or Disorientation No (0 pts) Intoxicated or Sedated No (0 pts) Impaired Gait No (0 pts) Mobility Assist Device Used No (0 pt) Altered Elimination No (0 pt) Score/Fall Risk Level 0 - 2 = Low Risk Oriented to surroundings, Maintained a safe environment, Educated pt \T\ family on fall prevention, incl call for assistance when getting out of bed, Assessed \T\ reinforced patient's understanding of fall precautions, Hourly rounding (assess needs \T\ fall precautionary measures) done. Abuse screen: Denies threats or abuse. Nutritional screening: No deficits noted. Tuberculosis screening: No symptoms or risk factors identified. Assessment: 15:26 VAN Scoring: Arm Drift: Patients demonstrates NO arm weakness. Patient is VAN Negative. cp4 Rachel Swallow Protocol 3 oz Water Swallow Challenge: Pt able to drink all water without stopping, coughing, choking or throat clearing:. TNKase (Tenecteplase) Screening: Indications:. Pain: Denies pain. 15:28 TNKase (Tenecteplase) Screening: Contraindications: Is the patient on Aspirin, Heparin, cp4 or Warfarin: Yes. Vital Signs: 14:48 BP 154 / 89; Pulse 62; Resp 17; Pulse Ox 98% ; Weight 57.61 kg; Height 5 ft. 2 in. ; nj1 15:00 BP 171 / 77; Pulse 58; Resp 18; Pulse Ox 98% ; cp4 16:00 BP 135 / 76; Pulse 59; Resp 18; Pulse Ox 98% ; cp4 17:00 BP 126 / 70; Pulse 58; Resp 18; Pulse Ox 100% ; cp4 18:00 BP 146 / 69; Pulse 58; Resp 18; Pulse Ox 100% ; cp4 19:00 BP 126 / 69; Pulse 52; Resp 18; Pulse Ox 100% ; cp4 14:48 Body Mass Index 23.23 (57.61 kg, 157.48 cm) nj1 NIH Stroke Scale Scores: 15:26 NIHSS Score: 0 cp4 17:10 NIHSS Score: 0 davon ED Course: 14:46 Patient arrived in ED. mr 14:46 Brandon Johnson MD is Private Physician. mr 14:54 Triage completed. nj1 14:55 Arm band placed on right wrist. nj1 15:00 Leonardo Oliveros MD is Attending Physician. davon 15:25 Deena Bahena is Primary Nurse. cp4 15:28 Bed in low position. Call light in reach. Side rails up X2. cp4 15:28 Inserted saline lock: 20 gauge in right antecubital area, using aseptic technique. cp4 Blood collected. 15:44 CT Stroke Brain w/o Contrast In Process Unspecified. EDMS 15:45 CT Head Angio In Process Unspecified. EDMS 15:47 CT Neck Angio In Process Unspecified. EDMS 16:31 XRAY Chest (1 view) In Process Unspecified. EDMS 17:12 Pradip Finch is Hospitalizing Provider. [facility] 20:03 Provided Education on: admission. cp4 20:03 No provider procedures requiring assistance completed. Patient admitted, IV remains in cp4 place. Administered Medications: 15:12 Drug: NS 0.9% IV 1000 ml IV at 1 bolus Per protocol; 1000 mL bolus Route: IV; Rate: 1 cp4 bolus; Site: right antecubital; 18:20 Follow up: Response: No adverse reaction; IV Status: Infusion continued cp4 15:13 Drug: foLIC Acid IVPB 1 mg IVPB once Route: IVPB; Site: right antecubital; cp4 18:21 Follow up: Response: No adverse reaction; IV Status: Completed infusion cp4 17:38 Drug: Aspirin PO Chewable Tablet 81 mg PO once Route: PO; cp4 18:20 Follow up: Response: No adverse reaction cp4 Medication: 15:28 VIS not applicable for this client. cp4 Outcome: 17:13 Decision to Hospitalize by Provider. [facility] 20:03 Admitted to Med/surg accompanied by tech, via wheelchair, Report called to [facility] 20:03 Condition: stable 20:03 Instructed on the need for admit, Demonstrated understanding of instructions, follow-up care, 20:05 Patient left the ED. cp4 NIH Stroke Scale - NIH Stroke Score Date: 07/17/2023 Time: 15:26 Total Score = 0 10. Dysarthria (speech clarity - read or repeat words) - 0(Normal) 11. Extinction and Inattention (visual/tactile/auditory/spatial/personal) - 0(No abnormality) 1a. Level of Consciousness (LOC) - 0(Alert) 1b. Level of Consciousness (LOC) (Month \T\ Age) - 0(Both) 1c. LOC Commands (Open \T\ Closes Eyes/Dermatology Physician) - 0(Both) 2. Best Gaze (Lateral Gaze Paresis) - 0(Normal) 3. Visual Field Loss - 0(No visual loss) 4. Facial Palsy - 0(Normal) 5a. Left Arm: Motor (10-second hold) - 0(No drift) 5b. Right Arm: Motor (10-second hold) - 0(No drift) 6a. Left Leg: Motor (5-second hold - always test supine) - 0(No drift) 6b. Right Leg: Motor (5-second hold - always test supine) - 0(No drift) 7. Limb Ataxia (finger/nose \T\ heel/mcdermott - test with eyes open) - 0(Absent) 8. Sensory Loss (pinprick arms/legs/face) - 0(Normal) 9. Best Language: Aphasia (description/naming/reading) - 0(No aphasia) Initials: cp4 NIH Stroke Scale - NIH Stroke Score Date: 07/17/2023 Time: 17:10 Total Score = 0 10. Dysarthria (speech clarity - read or repeat words) - 0(Normal) 11. Extinction and Inattention (visual/tactile/auditory/spatial/personal) - 0(No abnormality) 1a. Level of Consciousness (LOC) - 0(Alert) 1b. Level of Consciousness (LOC) (Month \T\ Age) - 0(Both) 1c. LOC Commands (Open \T\ Closes Eyes/Dermatology Physician) - 0(Both) 2. Best Gaze (Lateral Gaze Paresis) - 0(Normal) 3. Visual Field Loss - 0(No visual loss) 4. Facial Palsy - 0(Normal) 5a. Left Arm: Motor (10-second hold) - 0(No drift) 5b. Right Arm: Motor (10-second hold) - 0(No drift) 6a. Left Leg: Motor (5-second hold - always test supine) - 0(No drift) 6b. Right Leg: Motor (5-second hold - always test supine) - 0(No drift) 7. Limb Ataxia (finger/nose \T\ heel/mcdermott - test with eyes open) - 0(Absent) 8. Sensory Loss (pinprick arms/legs/face) - 0(Normal) 9. Best Language: Aphasia (description/naming/reading) - 0(No aphasia) Initials: davon Signatures: Dispatcher [employer] EDLeonardo Salinas, MD MD davon Guillen, Amy, Reg Reg mr Blanche Dee, RN RN nj1 Deena Bahena cp4
--- NOTE | 2023-07-17 17:14 | EDPHYS ---
Physician Documentation [facility] Name: Alexa Mcintyre Age: 87 yrs Sex: Female : 1935 Arrival Date: 07/17/2023 Time: 14:43 Bed 15 Private MD: Brandon Johnson E ED Physician Leonardo Oliveros HPI: 07/17 17:07 This 87 yrs old Female presents to ER via Ambulatory with complaints of davon Trouble Talking. 17:07 The patient presents to the emergency department with a speech or higher order brain davon function problem, aphasia, that is mild. Onset: The symptoms/episode began/occurred just prior to arrival. Context: occurred at home, occurred while the patient was sitting. Associated signs and symptoms: The patient has no apparent associated signs or symptoms. Severity of symptoms: At their worst the symptoms were mild in the emergency department the symptoms have resolved and did so just prior to arrival. Patient's baseline: Neuro: alert and fully oriented. Current symptoms: Currently, the patient is not experiencing any symptoms, the patient feels back to baseline, no decreased level of consciousness, no confusion, no dysphasia, no headache, no paralysis, no visual changes. The patient has not experienced similar symptoms in the past. Historical: - Allergies: 14:54 Sulfa (Sulfonamide Antibiotics); nj1 - PMHx: 14:54 Anxiety; BREAST CA; Diverticulitis; Hyperlipidemia; Hypertension; TIA; nj1 - Immunization history:: Client reports having NOT received the Covid vaccine. - Social history:: Smoking status: Patient denies any tobacco usage or history of. - Family history:: not pertinent. ROS: 17:07 Constitutional: Negative for fever, chills, and weight loss, Eyes: Negative for injury, davon pain, redness, and discharge, ENT: Negative for injury, pain, and discharge, Neck: Negative for injury, pain, and swelling, Cardiovascular: Negative for chest pain, palpitations, and edema, Respiratory: Negative for shortness of breath, cough, wheezing, and pleuritic chest pain, Abdomen/GI: Negative for abdominal pain, nausea, vomiting, diarrhea, and constipation, Back: Negative for injury and pain, : Negative for injury, bleeding, discharge, and swelling, MS/Extremity: Negative for injury and deformity, Skin: Negative for injury, rash, and discoloration, Neuro: Negative for headache, weakness, numbness, tingling, and seizure, Psych: Negative for depression, anxiety, suicide ideation, homicidal ideation, and hallucinations, Allergy/Immunology: Negative for hives, rash, and allergies, Endocrine: Negative for neck swelling, polydipsia, polyuria, polyphagia, and marked weight changes, Hematologic/Lymphatic: Negative for swollen nodes, abnormal bleeding, and unusual bruising, 17:07 Neuro: Positive for speech changes, RESOLVED RUSH SEATER, Exam: 17:07 Constitutional: This is a well developed, well nourished patient who is awake, alert, davon and in no acute distress. Head/Face: Normocephalic, atraumatic. Eyes: Pupils equal round and reactive to light, extra-ocular motions intact. Lids and lashes normal. Conjunctiva and sclera are non-icteric and not injected. Cornea within normal limits. Periorbital areas with no swelling, redness, or edema. ENT: Nares patent. No nasal discharge, no septal abnormalities noted. Tympanic membranes are normal and external auditory canals are clear. Oropharynx with no redness, swelling, or masses, exudates, or evidence of obstruction, uvula midline. Mucous membranes moist. Neck: Trachea midline, no thyromegaly or masses palpated, and no cervical lymphadenopathy. Supple, full range of motion without nuchal rigidity, or vertebral point tenderness. No Meningismus. Chest/axilla: Normal chest wall appearance and motion. Nontender with no deformity. No lesions are appreciated. Cardiovascular: Regular rate and rhythm with a normal S1 and S2. No gallops, murmurs, or rubs. Normal PMI, no JVD. No pulse deficits. Respiratory: Lungs have equal breath sounds bilaterally, clear to auscultation and percussion. No rales, rhonchi or wheezes noted. No increased work of breathing, no retractions or nasal flaring. Abdomen/GI: Soft, non-tender, with normal bowel sounds. No distension or tympany. No guarding or rebound. No evidence of tenderness throughout. Back: No spinal tenderness. No costovertebral tenderness. Full range of motion. Skin: Warm, dry with normal turgor. Normal color with no rashes, no lesions, and no evidence of cellulitis. MS/ Extremity: Pulses equal, no cyanosis. Neurovascular intact. Full, normal range of motion. Neuro: Awake and alert, GCS 15, oriented to person, place, time, and situation. Cranial nerves II-XII grossly intact. Motor strength 5/5 in all extremities. Sensory grossly intact. Cerebellar exam normal. Normal gait. Psych: Awake, alert, with orientation to person, place and time. Behavior, mood, and affect are within normal limits. 17:07 ECG was reviewed by the Attending Physician. Vital Signs: 14:48 BP 154 / 89; Pulse 62; Resp 17; Pulse Ox 98% ; Weight 57.61 kg; Height 5 ft. 2 in. ; nj1 15:00 BP 171 / 77; Pulse 58; Resp 18; Pulse Ox 98% ; cp4 16:00 BP 135 / 76; Pulse 59; Resp 18; Pulse Ox 98% ; cp4 17:00 BP 126 / 70; Pulse 58; Resp 18; Pulse Ox 100% ; cp4 18:00 BP 146 / 69; Pulse 58; Resp 18; Pulse Ox 100% ; cp4 19:00 BP 126 / 69; Pulse 52; Resp 18; Pulse Ox 100% ; cp4 14:48 Body Mass Index 23.23 (57.61 kg, 157.48 cm) nj1 NIH Stroke Scale Scores: 15:26 NIHSS Score: 0 cp4 17:10 NIHSS Score: 0 davon MDM: 15:00 Patient medically screened. [facility] 17:11 Data reviewed: vital signs, nurses notes, lab test result(s), EKG, radiologic studies, [facility] CT scan, MRI, plain films. Consideration of Admission/Observation Patient was admitted/placed on observation. Escalation of care including admission/observation considered. I considered the following discharge prescriptions or medication management in the emergency department Medications were administered in the Emergency Department. See MAR. Independent interpretation of the following test(s) in the Emergency Department EKG: See my EKG interpretation above. Test considered but Not performed: MRI: NO MRI IN ED. Historians other than the Patient: Spouse/Significant Other: WELL INFORMED. Care significantly affected by the following chronic conditions: Hypertension, Obesity, Cancer, DIVERTICULITIS, TIA, HYPERLIPIDEMIA. 07/17 15:02 Order name: Basic Metabolic Panel; Complete Time: 16:36 [facility] 07/17 15:02 Order name: CBC with Diff; Complete Time: 16:36 [facility] 07/17 15:02 Order name: LFT's; Complete Time: 16:36 [facility] 07/17 15:02 Order name: Magnesium; Complete Time: 16:36 07/17 15:02 Order name: NT PRO-BNP; Complete Time: 16:36 [facility] 07/17 15:02 Order name: PT-INR; Complete Time: 16:36 07/17 15:02 Order name: Troponin HS; Complete Time: 16:36 [facility] 07/17 15:02 Order name: Urinalysis w/ reflexes; Complete Time: 16:36 [facility] 07/17 17:53 Order name: CBC with Automated Diff [facility] 07/17 17:53 Order name: CBC with Automated Diff [facility] 07/17 17:53 Order name: Comprehensive Metabolic Panel [facility] 07/17 17:53 Order name: Comprehensive Metabolic Panel [facility] 07/17 17:53 Order name: Lipid Profile [facility] 07/17 17:53 Order name: Lipid Profile [facility] 07/17 17:53 Order name: Magnesium [facility] 07/17 17:53 Order name: Magnesium [facility] 07/17 17:53 Order name: Thyroid Stimulating Hormone [facility] 07/17 17:53 Order name: Thyroid Stimulating Hormone [facility] 07/17 17:53 Order name: Troponin High Sensitivity [facility] 07/17 17:53 Order name: Troponin High Sensitivity [facility] 07/17 17:53 Order name: Troponin High Sensitivity [facility] 07/17 17:53 Order name: Troponin High Sensitivity [facility] 07/17 15:02 Order name: XRAY Chest (1 view); Complete Time: 17:04 [facility] 07/17 15:02 Order name: CT Stroke Brain w/o Contrast; Complete Time: 16:36 [facility] 07/17 15:02 Order name: CT Head Angio; Complete Time: 16:36 [facility] 07/17 15:02 Order name: CT Neck Angio; Complete Time: 16:36 07/17 17:53 Order name: Echo with Doppler [facility] 07/17 17:53 Order name: Stroke Protocol [facility] 07/17 15:02 Order name: EKG; Complete Time: 15:02 07/17 17:53 Order name: Physical Therapy Consult [facility] 07/17 17:53 Order name: Speech Therapy Consult [facility] 07/17 15:02 Order name: Cardiac monitoring; Complete Time: 15:06 [facility] 07/17 15:02 Order name: EKG - Nurse/Tech; Complete Time: 15:24 [facility] 07/17 15:02 Order name: IV Saline Lock; Complete Time: 15: [facility] 07/17 15:02 Order name: Labs collected and sent; Complete Time: 15: [facility] 07/17 15:02 Order name: O2 Per Protocol; Complete Time: 15: [facility] 07/17 15:02 Order name: O2 Sat Monitoring; Complete Time: 15: [facility] EC:07 Rate is 60 beats/min. Rhythm is regular. QRS [place] is Normal. IA interval is normal. QRS davon interval is normal. QT interval is normal. No Q waves. T waves are Normal. No ST changes noted. Clinical impression: Normal ECG and No evidence of ischemia. Interpreted by me. Reviewed by me. Administered Medications: 15:12 Drug: NS 0.9% IV 1000 ml IV at 1 bolus Per protocol; 1000 mL bolus Route: IV; Rate: 1 cp4 bolus; Site: right antecubital; 18:20 Follow up: Response: No adverse reaction; IV Status: Infusion continued cp4 15:13 Drug: foLIC Acid IVPB 1 mg IVPB once Route: IVPB; Site: right antecubital; cp4 18:21 Follow up: Response: No adverse reaction; IV Status: Completed infusion cp4 17:38 Drug: Aspirin PO Chewable Tablet 81 mg PO once Route: PO; cp4 18:20 Follow up: Response: No adverse reaction cp4 Disposition Summary: 07/17/23 17:13 Hospitalization Ordered Notes: Hospitalization Status: Observation davon Provider: Pradip Finch cha Location: Telemetry/MedSurg (observation) davon Condition: Fair davon Problem: new davon Symptoms: have improved davon Bed/Room Type: Standard [facility] Room Assignment: 216(07/17/23 19:47) rv1 Diagnosis - Transient cerebral ischemic attack, unspecified davon - Aphasia davon Forms: - Medication Reconciliation Form davon - SBAR form davon - Leadership Thank You Letter [facility] NIH Stroke Scale - NIH Stroke Score Date: 07/17/2023 Time: 15: Total Score = 0 10. Dysarthria (speech clarity - read or repeat words) - 0(Normal) 11. Extinction and Inattention (visual/tactile/auditory/spatial/personal) - 0(No abnormality) 1a. Level of Consciousness (LOC) - 0(Alert) 1b. Level of Consciousness (LOC) (Month \T\ Age) - 0(Both) 1c. LOC Commands (Open \T\ Closes Eyes/Hospital Mortician) - 0(Both) 2. Best Gaze (Lateral Gaze Paresis) - 0(Normal) 3. Visual Field Loss - 0(No visual loss) 4. Facial Palsy - 0(Normal) 5a. Left Arm: Motor (10-second hold) - 0(No drift) 5b. Right Arm: Motor (10-second hold) - 0(No drift) 6a. Left Leg: Motor (5-second hold - always test supine) - 0(No drift) 6b. Right Leg: Motor (5-second hold - always test supine) - 0(No drift) 7. Limb Ataxia (finger/nose \T\ heel/mcdermott - test with eyes open) - 0(Absent) 8. Sensory Loss (pinprick arms/legs/face) - 0(Normal) 9. Best Language: Aphasia (description/naming/reading) - 0(No aphasia) Initials: cp4 NIH Stroke Scale - NIH Stroke Score Date: 07/17/2023 Time: 17:10 Total Score = 0 10. Dysarthria (speech clarity - read or repeat words) - 0(Normal) 11. Extinction and Inattention (visual/tactile/auditory/spatial/personal) - 0(No abnormality) 1a. Level of Consciousness (LOC) - 0(Alert) 1b. Level of Consciousness (LOC) (Month \T\ Age) - 0(Both) 1c. LOC Commands (Open \T\ Closes Eyes/Hospital Mortician) - 0(Both) 2. Best Gaze (Lateral Gaze Paresis) - 0(Normal) 3. Visual Field Loss - 0(No visual loss) 4. Facial Palsy - 0(Normal) 5a. Left Arm: Motor (10-second hold) - 0(No drift) 5b. Right Arm: Motor (10-second hold) - 0(No drift) 6a. Left Leg: Motor (5-second hold - always test supine) - 0(No drift) 6b. Right Leg: Motor (5-second hold - always test supine) - 0(No drift) 7. Limb Ataxia (finger/nose \T\ heel/mcdermott - test with eyes open) - 0(Absent) 8. Sensory Loss (pinprick arms/legs/face) - 0(Normal) 9. Best Language: Aphasia (description/naming/reading) - 0(No aphasia) Initials: davon Signatures: Dispatcher [employer] Leonardo Bonilla MD MD cha Villegas, Rebecca rv1 Blanche Dee RN RN nj1 Deena Bahena cp4 Corrections: (The following items were deleted from the chart) 19:47 17:13 davon rv1
[2023-07-17] MEDS ORDERED: ASPIRIN 81 MG CHEWABLE TABLET ONE (17:28)
[2023-07-17] MEDS ORDERED: ACETAMINOPHEN 500 MG TAB PO PRN (17:39)
[2023-07-17] MEDS ORDERED: ONDANSETRON 4 MG/2 ML VIAL IV PRN (17:39)
--- NOTE | 2023-07-17 17:53 | P.HP ---
Certification for Inpatient Patient admitted to: Observation With expected LOS: <2 Midnights Patient will require the following post-hospital care: None Practitioner: I am a practitioner with admitting privileges, knowledge of patient current condition, hospital course, and medical plan of care. Services: Services provided to patient in accordance with Admission requirements found in Title 42 Section 412.3 of the Code of Federal Regulations Patient History Date of Service: 07/17/23 Reason for admission: Acute TIA Allergies Sulfa (Sulfonamide Antibiotics) Allergy (Intermediate, Verified 06/01/17 15:12) Anaphylaxis Home Medications: Apixaban [Eliquis] 2.5 mg PO BID #60 tablet 07/16/23 Aspirin [Aspirin EC 81 MG] 81 mg PO DAILY 07/16/23 Atorvastatin Calcium [Lipitor] 40 mg PO BEDTIME #30 tab 07/16/23 Clopidogrel Bisulfate [Plavix*] 75 mg PO DAILY 07/16/23 Folic Acid/Vit B Complex and C [Folbee Plus Tablet] See Rx Instructions .ROUTE .COMPLEX 07/16/23 LORazepam [Ativan*] 0.5 mg PO DAILY 07/16/23 Mesalamine 2 tab PO DAILY 07/16/23 Metoprolol Tartrate 100 mg PO BID 07/16/23 Ramipril [Altace] 10 mg PO DAILY 07/16/23 - Past Medical/Surgical History Diabetic: No -: TIA -: diverticulitis -: polycystic kidney disease -: seasonal allergies -: cataracts -: breast CA -: hypercholestermia -: Left and rt mastectomy -: uterine prolapse -: madeleine cataract sx - Family History Father Medical History: Hypertension Notes: aneurysm Mother Medical History: Heart disease, Kidney disease - Social History Alcohol use: Yes CD- Drugs: No Caffeine use: Yes Physical Examination - Studies Laboratory Data (last 24 hrs) 07/17/23 07/17/23 07/17/23 15:07 15:07 15:07 WBC 8.90 Hgb 11.0 L Hct 32.7 L Plt Count 286 PT 12.3 INR 1.12 Sodium 129 L Potassium 3.9 BUN 28 H Creatinine 1.21 H Glucose 107 H Magnesium 1.6 Total Bilirubin 0.4 AST 20 ALT 32 Alkaline Phosphatase 123 H Assessment & Plan - Advance Directives Does patient have a Living Will: No Does patient have a Durable POA for Healthcare: Yes
[2023-07-17 20:35] VITALS: O2SAT 97; BMI 23.2
[2023-07-17] MEDS: INSULIN REGULAR (HUMAN) 100 UNIT/ML SQ SCH (21:00)
[2023-07-17] MEDS: NA CHLORIDE 0.9% 1,000 ML IV SCH (22:39)
[2023-07-17] MEDS: APIXABAN 2.5 MG TABLET PO SCH (22:40)
[2023-07-17] MEDS: ATORVASTATIN 20 MG TAB PO SCH (22:40)
[2023-07-18 04:24] LABS: Absolute Lymphocytes (CBC) 1.7 K/uL (0.7-4.9); Hematocrit 28.3 % (36.0-45.0); Lymphocytes % 30.2 % (15.3-44.8); MCV 84.5 fL (80-100); MPV 7.2 fL (7.6-11.3); Platelets 204 thou/uL (152-406); RBC Red Blood Cell Count 3.35 M/uL (3.86-4.86)
[2023-07-18 04:42] LABS: Albumin 2.5 g/dL (3.4-5.0); Bilirubin Total 0.5 mg/dL (0.2-1.0); Magnesium 1.7 mg/dL (1.6-2.4); Potassium 3.9 mEq/L (3.5-5.1); Protein, Total 6.2 g/dL (6.4-8.2); Troponin High Sensitivity 21.8 pg/mL (<58.9)
[2023-07-18 04:45] LABS: Thyroid Stimulating Hormone 6.31 uIU/mL (0.358-3.740)
[2023-07-18 05:22] LABS: Phosphorus 2.7 mg/dL (2.5-4.9)
[2023-07-18] MEDS: MAGNESIUM SULFATE 1 gm IVPB 1 GM/100 ML BAG IV ONE (05:30)
[2023-07-18] MEDS: POTASSIUM CL SA 10 MEQ TAB PO ONE (09:32)
[2023-07-18] MEDS: ASPIRIN EC 81 MG TAB PO SCH (09:32)
[2023-07-18] MEDS: CLOPIDOGREL 75 MG TABLET PO SCH (09:32)
--- NOTE | 2023-07-18 09:43 | RAD REPORT ---
EXAM DESCRIPTION: MRI - MRA Head Wo Cont - 07/18/2023 9:31 am CLINICAL HISTORY: aphasia COMPARISON: Brain Wo Cont dated 07/15/2023; Brain Wo Cont dated 09/08/2017; MRI BRAIN WITHOUT CONTRAST dated 11/30/2010; MRA HEAD W O CONTRAST dated 11/30/2010; Neck Angio dated 07/17/2023; Head angio dated 07/17/2023; Head angio dated 07/15/2023 FINDINGS: 3D noncontrast [id number] MR angiography of the [place] was performed. No aneurysm, flow-limiting stenosis or vascular malformation is seen. Diminutive left intracranial ve rtebral artery. The right vertebral artery is dominant. origin of both posterior cerebral arter ies. The visualized dural venous sinuses appear patent. Right maxillary sinus opacification which may be due to a polyp. IMPRESSION: No significant flow abnormality is identified. No large vessel occlusion.
--- NOTE | 2023-07-18 10:17 | P.DS ---
Admission Date: 07/17/23 Discharge Date: 07/18/23 Disposition: TRANSFER TO INTERMEDIATE Discharge Condition: GOOD Reason for Admission: Acute TIA Brief History of Present Illness: The patient presents to the emergency department with a speech or higher order brain function problem, aphasia, that is mild. Onset: The symptoms/episode began/occurred just prior to arrival. Context: occurred at home, occurred while the patient was sitting. Associated signs and symptoms: The patient has no apparent associated signs or symptoms. Severity of symptoms: At their worst the symptoms were mild in the emergency department the symptoms have resolved and did so just prior to arrival. Patient's baseline: Neuro: alert and fully oriented. Current symptoms: Currently, the patient is not experiencing any symptoms, the patient feels back to baseline, no decreased level of consciousness, no confusion, no dysphasia, no headache, no paralysis, no visual changes. Hospital Course: Ms. Mcintyre has been doing well. It appears that as her blood pressure decreases she sometimes loses the ability to speak. Permissive hypertension is recommended to increase perfusion. MRA negative for large vessel occlusion or other acute ischemia. Vital Signs/Physical Exam: Temp Pulse Resp BP Pulse Ox 97.5 F 54 18 157/64 H 94 07/18/23 04:00 07/18/23 04:00 07/18/23 04:00 07/18/23 04:00 07/18/23 04:00 General: Alert, In no apparent distress HEENT: Normocephalic Neck: Supple Respiratory: Normal air movement Cardiovascular: No edema, Normal pulses Capillary refill: <2 Seconds Gastrointestinal: Normal bowel sounds, Soft and benign Musculoskeletal: No clubbing Neurological: Normal speech Lymphatics: No axilla or inguinal lymphadenopathy External genitalia: Deferred Rectal: Deferred Laboratory Data at Discharge: WBC 5.70 thou/uL (4.3-10.9) 07/18/23 03:49 Hgb 9.7 g/dL (12.0-15.0) L D 07/18/23 03:49 Hct 28.3 % (36.0-45.0) L 07/18/23 03:49 Plt Count 204 thou/uL (152-406) D 07/18/23 03:49 PT 12.3 SECONDS (9.5-12.5) 07/17/23 15:07 INR 1.12 07/17/23 15:07 Sodium 133 mEq/L (136-145) L D 07/18/23 03:49 Potassium 3.9 mEq/L (3.5-5.1) 07/18/23 03:49 BUN 21 mg/dL (7-18) H 07/18/23 03:49 Creatinine 1.15 mg/dL (0.55-1.02) H 07/18/23 03:49 Glucose 85 mg/dL (74-106) 07/18/23 03:49 Phosphorus 2.7 mg/dL (2.5-4.9) 07/18/23 03:49 Magnesium 1.7 mg/dL (1.6-2.4) 07/18/23 03:49 Total Bilirubin 0.5 mg/dL (0.2-1.0) 07/18/23 03:49 AST 18 U/L (15-37) 07/18/23 03:49 ALT 23 U/L (13-56) 07/18/23 03:49 Alkaline Phosphatase 106 U/L (45-117) 07/18/23 03:49 Triglycerides 97 mg/dL (<150) 07/18/23 03:49 Cholesterol 119 mg/dL (<200) 07/18/23 03:49 HDL Cholesterol 61 mg/dL (40-60) H 07/18/23 03:49 Cholesterol/HDL Ratio 1.95 07/18/23 03:49 Home Medications: Apixaban [Eliquis *] 2.5 mg PO BID #60 tablet 07/16/23 Atorvastatin Calcium [Lipitor] 40 mg PO BEDTIME #30 tab 07/16/23 Clopidogrel Bisulfate [Plavix*] 75 mg PO DAILY 07/16/23 Folic Acid/Vit B Complex and C [Folbee Plus Tablet] See Rx Instructions .ROUTE .COMPLEX 07/16/23 LORazepam [Ativan*] 0.5 mg PO DAILY 07/16/23 Mesalamine 2 tab PO DAILY 07/16/23 Ramipril [Altace] 10 mg PO DAILY 07/16/23 Apixaban [Eliquis *] 2.5 mg PO BID 07/18/23 Atorvastatin Calcium [Lipitor*] 80 mg PO BEDTIME tab 07/18/23 Clopidogrel Bisulfate [Plavix*] 75 mg PO DAILY 02/26/24 Metoprolol Succinate 100 mg PO DAILY #30 tab 07/18/23 New Medications: Metoprolol Succinate 100 mg PO DAILY #30 tab Physician Discharge Instructions: Metoprolol succinate 100mg daily is a decrease in the current home medication dosage of metoprolol tartrate 100mg po BID. Diet: AHA Activity: Ad fermin Followup: Brandon Johnson MD [Primary Care Provider] -
[2023-07-18 14:02] VITALS: BP 161/88; TEMP 97
--- NOTE | 2023-07-18 14:30 | EKG ---
Test Date: 2023-07-17 Test Time: 15:19:26 Software Configuration Analyst: KIMMY MEASUREMENT RESULTS: Intervals: Rate: 60 SD: 202 QRSD: 68 QT: 430 QTc: 430 [place]: P: SD: 202 QRS: 30 T: 59 INTERPRETIVE STATEMENTS: Normal sinus rhythm Normal ECG Compared to ECG 07/15/2023 14:38:18 Sinus bradycardia no longer present Atrial premature complex(es) no longer present Electronically Signed On 07-18-23 14:26:30 SHIPFITTER HELPER by Brody Baig
--- NOTE | 2023-07-19 06:29 | ECHO ---
HEIGHT: 5 ft 2 in WEIGHT: 127 lb 0 oz DATE OF STUDY: 07/18/[address]: Eduard Bond MD 2-DIMENSIONAL: YES M.MODE: YES DOPPLER: YES COLOR FLOW: YES TDS: PORTABLE: YES DEFINITY: BUBBLE STUDY: DIAGNOSIS: STROKE CARDIAC HISTORY: CATHERIZATION: NO SURGERY: NO PROSTHETIC VALVE: NO PACEMAKER: NO MEASUREMENTS (cm) DIASTOLIC (NORMALS) SYSTOLIC (NORMALS) IVSd 0.9 (0.6-1.2) LA Diam 1.9 (1.9-4.0) LVEF 57% LVIDd 4.3 (3.5-5.7) LVIDs 3.0 (2.0-3.5) %FS 30% LVPWd 1.1 (0.6-1.2) Ao Diam 2.7 (2.0-3.7) 2 DIMENSIONAL ASSESSMENT: RIGHT ATRIUM: NORMAL LEFT ATRIUM: NORMAL RIGHT VENTRICLE: NORMAL LEFT VENTRICLE: NORMAL TRICUSPID VALVE: NORMAL MITRAL VALVE: TRACE MITRAL REGURGITATION PULMONIC VALVE: MILD PULMONIC INSUFFICIENCY AORTIC VALVE: MILD TO MODERATE AORTIC INSUFFICIENCY PERICARDIAL EFFUSION: NONE AORTIC ROOT: NORMAL LEFT VENTRICULAR WALL MOTION: NORMAL DOPPLER/COLOR FLOW: SEE BELOW COMMENTS: 1. NORMAL LEFT VENTRICULAR EJECTION FRACTION 55-60% WITH NORMAL WALL MOTION 2. GRADE I DIASTOLIC DYSFUNCTION 3. MILD TO MODERATE AORTIC INSUFFICIENCY TECHNOLOGIST: LLUVIA YUEN
== END 2023-07-18 16:29 | disposition home or self-care (01) ==
LOC: ER 14:43 → ERHOLD 17:39 → 2ND 19:56
PROVIDERS: ADMIT Hospitalist; ATTEND Hospitalist
DX: G45.9 Transient cerebral ischemic attack, unspecified (principal); R47.01 Aphasia; R29.700 NIHSS score 0; F41.9 Anxiety disorder, unspecified; E78.5 Hyperlipidemia, unspecified; I10 Essential (primary) hypertension; Z85.3 Personal history of malignant neoplasm of breast; Z88.2 Allergy status to sulfonamides; Z86.73 Personal history of transient ischemic attack (TIA), and cerebral infarction without residual deficits
CPT/HCPCS: 96365; 93005; 93306; 85025 ×2; 80048; 36415; 83735 ×2; 84100; 85610; 80061; 82947 ×2; 80076; 84443; 81003; 84484 ×2; 84439; 80053; 83880; 70496; 70498; 70450; 71045; 70544; 92523; 97161; 99285; 96366; Q9967; J3475; J7030 ×3; G0378 ×4

== ENCOUNTER 2024-07-23 10:20 | Emergency (ER) | payer OTHER, BC ==
[2024-07-23] MEDS ORDERED: HYDROCODONE/APAP 5/325 MG TAB ONE (11:50)
[2024-07-23 12:01] LABS: Absolute Eosinophils 0.1 K/uL (0-0.5); Absolute Monocytes 0.6 K/uL (0.1-1.3); Absolute Neutrophil 6.2 K/uL (1.8-8.0); Basophils % 0.6 % (0-1.3); Eosinophils % 1.4 % (0-4.4); Hematocrit 35.2 % (36.0-45.0); Hemoglobin 12.2 g/dL (12.0-15.0); Lymphocytes % 12.2 % (15.3-44.8); MCH 31.3 pg (27.0-35.0); MCHC 34.5 g/dL (32.0-36.0); MCV 90.5 fL (80-100); MPV 8.6 fL (7.6-11.3); Monocytes % 7.3 % (3.3-12.3); Neutrophils % 78.5 % (41.7-73.7); Platelets 207 thou/uL (152-406); RBC Red Blood Cell Count 3.89 M/uL (3.86-4.86); Red Cell Distribution Width 14.9 % (12.1-15.2)
[2024-07-23 12:10] LABS: Anion Gap 10.4 mEq/L (5.0-15.0); BUN Blood Urea Nitrogen 35 mg/dL (7-18); Bicarbonate 22 mEq/L (21-32); Glomerular Filtration Rate 36 ml/min (=/>90); Glucose Level 99 mg/dL (74-106); Potassium 4.4 mEq/L (3.5-5.1); Sodium Level 139 mEq/L (136-145); Troponin High Sensitivity 8.8 pg/mL (<58.9)
[2024-07-23 12:13] LABS: C-Reactive Protein < 2.90 mg/L (<3.00)
--- NOTE | 2024-07-23 12:20 | RAD REPORT ---
EXAMINATION: ONE VIEW CHEST XR CLINICAL INDICATION: CHEST PAIN TECHNIQUE: Frontal chest projection is submitted. Examination is limited by patient positioning and t echnique. COMPARISON: 07/17/2023 FINDINGS: The lungs are well inflated and clear. The heart is normal in size. Dual-lead pacer device. Right-ebony ed venous catheters tip in the SVC. Large hiatal hernia.
--- NOTE | 2024-07-23 13:19 | RAD REPORT ---
EXAMINATION: CT MAXILLOFACIAL WITHOUT CONTRAST CLINICAL INDICATION: Female, 88 years old. FACIAL PAIN TECHNIQUE: Axial images were obtained through the facial bones and orbits without intravenous contras t. Sagittal and coronal reconstructions were created from the data. One or more of the following dose reduction techniques were used: Automated exposure control, adjustment of the mA and/or kV accor ding to patient size, and/or iterative reconstruction. Unless otherwise specified, incidental findings do not require dedicated imaging follow-up. [id number]. COMPARISON: No prior exam. FINDINGS: Motion limited. SOFT TISSUE: Partially imaged right IJ approach Port-A-Cath. BONES: No evidence of fracture, dislocation, or aggressive osseous lesions. No lesion of the visuali zed skull base or calvarium. 4 mm of anterolisthesis of C3 on C4 is presumably chronic. ORBITS: The globes are intact. No intraorbital hemorrhage or mass. SINUSES: Trace right maxillary sinus thickening. BRAIN: No acute abnormalities in the visualized intracranial structures. IMPRESSION: No acute or significant abnormalities.
[2024-07-23] MEDS ORDERED: NA CHLORIDE 0.9% 1,000 ML ONE (14:01)
--- NOTE | 2024-07-23 14:44 | EDPHYS ---
Physician Documentation [facility] Name: Alexa Mcintyre Age: 88 yrs Sex: Female : 1935 Arrival Date: 07/23/2024 Time: 10:20 Bed 16 Private MD: ED Physician Rikki Sadler HPI: 07/23 11:59 This 88 yrs old Female presents to ER via Ambulatory with complaints of Ear Pain, sb4 Headache. 12:00 patient reports right sided facial pain for a few days now. she states that she saw her sb4 PCP for this but did not diagnose her with anything. she is concerned that the pain is being caused by her pacemaker, as she just had it placed 2 months ago. denies any ear pain or toothaches. denies any trauma. Historical: - Allergies: 10:58 Sulfa (Sulfonamide Antibiotics); cm10 - PMHx: 10:58 Anxiety; BREAST CA; Diverticulitis; Hyperlipidemia; Hypertension; TIA; cm10 12:18 Polycystic kidney disease; sb4 - PSHx: 10:58 Pacemaker; cm10 - Immunization history:: Adult Immunizations up to date. - Infectious Disease History:: Denies. - Social history:: Smoking status: Patient denies any tobacco usage or history of. ROS: 12:00 Constitutional: Negative for fever, chills, and weight loss, sb4 12:00 ENT: Positive for facial pain, right sided, 12:00 All other systems are negative, Exam: 12:02 Constitutional: This is a well developed, well nourished patient who is awake, alert, sb4 and in no acute distress. Head/Face: Normocephalic, atraumatic. Eyes: Extra-ocular motions intact. Periorbital areas with no swelling, redness, or edema. ENT: Mucous membranes moist. Cardiovascular: Regular rate and rhythm with a normal S1 and S2. Respiratory: No increased work of breathing, no retractions or nasal flaring. Abdomen/GI: Soft, non-tender, no distension. Skin: Warm, dry with normal turgor. Normal color with no rashes, no lesions, and no evidence of cellulitis. 12:02 ENT: TM's: are normal, no acute changes, Vital Signs: 11:00 BP 152 / 82; Pulse 70; Resp 16; Temp 97.3; Pulse Ox 96% on R/A; Weight 52.62 kg; Height cm10 5 ft. 0 in. ; Pain 7/10; 13:00 BP 148 / 76; Pulse 68; Resp 18; Pulse Ox 99% on R/A; ph 14:00 BP 152 / 81; Pulse 70; Resp 18; Pulse Ox 99% on R/A; ph 14:53 BP 147 / 89; Pulse 67; Resp 18; Temp 97.8; Pulse Ox 99% on R/A; ph 11:00 Body Mass Index 22.65 (52.62 kg, 152.4 cm) cm10 11:00 Pain Scale: Adult cm10 MDM: 10:25 Medical Screening Exam initiated sb4 15:13 Data reviewed: vital signs, nurses notes, lab test result(s), EKG, radiologic studies, sb4 and as a result, I will discharge patient. Counseling: I had a detailed discussion with the patient and/or guardian regarding the historical points, exam findings, and any diagnostic results supporting the discharge/admit diagnosis, the presence of at least one elevated blood pressure reading (>120/80) during this emergency department visit, lab results, radiology results, the need for outpatient follow up, for definitive care, to return to the emergency department if symptoms worsen or persist or if there are any questions or concerns that arise at home. 07/23 11:07 Order name: Basic Metabolic Panel; Complete Time: 12:13 sb4 07/23 11:07 Order name: CBC with Diff; Complete Time: 12:08 sb4 07/23 11:07 Order name: Troponin HS; Complete Time: 12:13 sb4 07/23 11:07 Order name: CRP; Complete Time: 12:13 sb4 07/23 11:07 Order name: XRAY Chest (1 view); Complete Time: 12:21 sb4 07/23 12:52 Order name: Facial Bones W/ Mpr; Complete Time: 13:20 EDMS 07/23 11:07 Order name: Cardiac monitoring; Complete Time: 12:53 sb4 07/23 11:07 Order name: EKG - Nurse/Tech; Complete Time: 12:14 sb4 07/23 11:07 Order name: IV Saline Lock; Complete Time: 12:14 sb4 07/23 11:07 Order name: Labs collected and sent; Complete Time: 12:14 sb4 07/23 11:07 Order name: O2 Per Protocol; Complete Time: 12:53 sb4 07/23 11:07 Order name: O2 Sat Monitoring; Complete Time: 12:53 sb4 07/23 11:07 Order name: Misc. Order: interrogate pacemaker; Complete Time: 11:42 sb4 EC:57 Rate is 68 beats/min. Rhythm is regular, Paced. [place] interval is prolonged at 242 msec. sb4 QRS interval is normal at 68 msec. QT interval is normal at 388 msec. Interpreted by me. Reviewed by me. Administered Medications: 11:58 Drug: HYDROcodone-acetaminophen PO 5 mg-325 mg 1 tabs PO once Route: PO; aa5 15:23 Follow up: Response: No adverse reaction ph 14:10 Drug: NS 0.9% IV 1000 ml IV at 1 bolus Per protocol; to be given as a bolus over 60 ph minutes Route: IV; Rate: 1 bolus; Site: right antecubital; 15:24 Follow up: Response: No adverse reaction; IV Status: Completed infusion; IV Intake: ph 1000ml Disposition: 16:38 Co-signature as Attending Physician, Rikki Sadler MD I reviewed the patient's care rn provided by the Advanced Practice Provider and agree with the diagnosis and treatment plan. Disposition Summary: 07/23/24 14:43 Discharge Ordered Notes: Location: Home sb4 Problem: new sb4 Symptoms: have improved sb4 Condition: Stable sb4 Diagnosis - Atypical facial pain sb4 Followup: sb4 - With: Brandon Johnson MD - When: 1 week - Reason: Recheck today's complaints, Re-evaluation by your physician Discharge Instructions: - Discharge Summary Sheet sb4 - Neuropathic Pain sb4 Forms: - Patient Portal Instructions sb4 - Leadership Thank You Letter sb4 Prescriptions: - gabapentin 100 mg Oral capsule - take 1 capsule ORAL route every 8 hours prn pain; 12 capsule; Refills: 0, sb4 Product Selection Permitted - Prednisone 20 mg Oral Tablet - take 1 tablet ORAL route once daily for 5 days; 5 tablet; Refills: 0, Product sb4 Selection Permitted Signatures: Dispatcher [employer] Rikki Corbett MD MD rn Calderon, Audri, RN RN aa5 Maddy Thompson RN RN ph Rachele Alberto PA-C PAKierra sb4 Jocelin Goodman RN RN cm10 Corrections: (The following items were deleted from the chart) 10:58 10:58 PSHx: Pacemaker (TIA); cm10 cm10 11:08 11:08 Chest Single View+RAD.RAD.BRZ ordered. EDMS EDMS 12:26 12:20 Facial Bones W/ MPR+CT.RAD.BRZ ordered. EDMS EDMS 12:52 12:15 Facial Bones W/ Con \T\ MPR+CT.RAD.BRZ ordered. EDMS EDMS
--- NOTE | 2024-07-23 14:44 | ER ---
Nurse's Notes [facility] Name: Alexa Mcintyre Age: 88 yrs Sex: Female : 1935 Arrival Date: 07/23/2024 Time: 10:20 Bed 16 Private MD: Diagnosis: Atypical facial pain Presentation: 07/23 11:00 Chief complaint: Patient states: Pain to right jaw that radiates to back of head onset cm10 1 week ago. Coronavirus screen: Client denies travel out of the [place] in the last 14 days. Ebola Screen: Patient denies travel to an Ebola-affected area in the 21 days before illness onset. Initial Sepsis Screen: Does the patient meet any 2 criteria? No. Patient's initial sepsis screen is negative. Does the patient have a suspected source of infection? No. Patient's initial sepsis screen is negative. Risk Assessment: Do you want to hurt yourself or someone else? Patient reports no desire to harm self or others. Onset of symptoms was July 23, 2024. 11:00 Method Of Arrival: Ambulatory cm10 11:00 Acuity: ULICES 3 cm10 Triage Assessment: 10:58 General: Appears in no apparent distress. uncomfortable, Behavior is calm, cooperative. cm10 Pain: Complains of pain in chin and right jaw Pain radiates to right base of the skull Pain currently is 7 out of 10 on a pain scale. Neuro: No deficits noted. Level of Consciousness is awake, alert, obeys commands, Oriented to person, place, time, situation, Appropriate for age. Respiratory: No deficits noted. Airway is patent Respiratory effort is even, unlabored, Respiratory pattern is regular, symmetrical. Historical: - Allergies: 10:58 Sulfa (Sulfonamide Antibiotics); cm10 - PMHx: 10:58 Anxiety; BREAST CA; Diverticulitis; Hyperlipidemia; Hypertension; TIA; cm10 12:18 Polycystic kidney disease; sb4 - PSHx: 10:58 Pacemaker; cm10 - Immunization history:: Adult Immunizations up to date. - Infectious Disease History:: Denies. - Social history:: Smoking status: Patient denies any tobacco usage or history of. Screenin:53 [facility] ED Fall Risk Assessment (Adult) History of falling in the last 3 months, ph including since admission No falls in past 3 months (0 pts) Confusion or Disorientation No (0 pts) Intoxicated or Sedated No (0 pts) Impaired Gait No (0 pts) Mobility Assist Device Used No (0 pt) Altered Elimination No (0 pt) Score/Fall Risk Level 0 - 2 = Low Risk Oriented to surroundings, Maintained a safe environment, Hourly rounding (assess needs \T\ fall precautionary measures) done. Abuse screen: Denies threats or abuse. Denies injuries from another. Nutritional screening: No deficits noted. Tuberculosis screening: No symptoms or risk factors identified. Assessment: 11:43 Reassessment: [employer] pacemaker interrogation completed, will wait on report, aa5 call [employer] at if any questions. . 12:33 Reassessment: Contacted [employer] about report not received yet, spoke to aa5 billing representative, Palmer, reports he will fax report and reports findings are pt had episode of A-fib <20 seconds. Provider was notified. . 13:00 General: Appears in no apparent distress. comfortable, well groomed, Behavior is calm, ph cooperative, appropriate for age. Pain: Complains of pain in right jaw. Neuro: Level of Consciousness is awake, alert, obeys commands, Oriented to person, place, time, situation. Cardiovascular: Capillary refill < 3 seconds in bilateral fingers Patient's skin is warm and dry. Respiratory: Airway is patent Respiratory effort is even, unlabored. GI: No signs and/or symptoms were reported involving the gastrointestinal system. EENT: Reports pain in right jaw. 14:53 Reassessment: D/C pending completion of IV fluids. ph Vital Signs: 11:00 BP 152 / 82; Pulse 70; Resp 16; Temp 97.3; Pulse Ox 96% on R/A; Weight 52.62 kg; Height cm10 5 ft. 0 in. ; Pain 7/10; 13:00 BP 148 / 76; Pulse 68; Resp 18; Pulse Ox 99% on R/A; ph 14:00 BP 152 / 81; Pulse 70; Resp 18; Pulse Ox 99% on R/A; ph 14:53 BP 147 / 89; Pulse 67; Resp 18; Temp 97.8; Pulse Ox 99% on R/A; ph 11:00 Body Mass Index 22.65 (52.62 kg, 152.4 cm) cm10 11:00 Pain Scale: Adult cm10 ED Course: 10:22 Patient arrived in ED. im 10:23 Rachele Alberto PA-C is PHCP. sb4 10:23 Rikki Sadler MD is Attending Physician. sb4 11:03 Triage completed. cm10 11:03 Arm band placed on right wrist. Patient placed in waiting room. cm10 11:43 Pacemaker Interrogation completed and sent to [facility]. aa5 11:52 XRAY Chest (1 view) In Process Unspecified. EDMS 12:13 Inserted saline lock: 20 gauge in right antecubital area, using aseptic technique. rk3 Blood collected. Flushed with 10 mL NS. 12:52 Facial Bones W/ Mpr In Process Unspecified. EDMS 12:53 Maddy Thompson RN is Primary Nurse. ph 14:43 Brandon Johnson MD is Referral Physician. sb4 14:53 Patient has correct armband on for positive identification. Bed in low position. Call ph light in reach. Side rails up X 1. 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 Pulse ox on. NIBP on. 15:24 No provider procedures requiring assistance completed. IV discontinued, intact, ph bleeding controlled, No redness/swelling at site. Pressure dressing applied. Administered Medications: 11:58 Drug: HYDROcodone-acetaminophen PO 5 mg-325 mg 1 tabs PO once Route: PO; aa5 15:23 Follow up: Response: No adverse reaction ph 14:10 Drug: NS 0.9% IV 1000 ml IV at 1 bolus Per protocol; to be given as a bolus over 60 ph minutes Route: IV; Rate: 1 bolus; Site: right antecubital; 15:24 Follow up: Response: No adverse reaction; IV Status: Completed infusion; IV Intake: ph 1000ml Medication: 14:53 VIS not applicable for this client. ph Intake: 15:24 IV: 1000ml; Total: 1000ml. ph Outcome: 14:43 Discharge ordered by . sb4 15:24 Discharged to home ambulatory, with significant other, ph 15:24 Condition: good 15:24 Discharge instructions given to patient, Instructed on discharge instructions, follow up and referral plans. medication usage, Demonstrated understanding of instructions, follow-up care, medications, Prescriptions given X 2, 15:25 Patient left the ED. ph Signatures: Dispatcher [employer] EDCA Kaylin Lazcano RN RN aa5 Maddy Thompson RN RN Rachele Calvert, PAChrisC PA-C sb4 Vandana Murray Clarissa RN RN cm10 Ana Laura Vanessa rk3 Corrections: (The following items were deleted from the chart) 10:58 10:58 PSHx: Pacemaker (TIA); cm10 cm10
[2024-07-23 15:49] VITALS: O2SAT 99
[2024-07-23 15:52] VITALS: BP 147/89; TEMP 97.8
--- NOTE | 2024-07-24 12:14 | EKG ---
Test Date: 2024-07-23 Test Time: 11:51:26 Harness Installer: ANTONIA MEASUREMENT RESULTS: Intervals: Rate: 68 AL: 242 QRSD: 68 QT: 388 QTc: 412 [place]: P: 78 AL: 242 QRS: 49 T: 30 INTERPRETIVE STATEMENTS: Atrial-paced rhythm with prolonged AV conduction with occasional ventricular-paced complexes Septal infarct, age undetermined Abnormal ECG Compared to ECG 07/17/2023 15:19:26 Myocardial infarct finding now present Sinus rhythm no longer present Electronically Signed On 07-24-24 12:11:19 WIRE STOCKKEEPER by Otf Lerma
== END 2024-07-23 15:25 | disposition home or self-care (01) ==
LOC: ER 10:20
DX: G50.1 Atypical facial pain (principal); R51.9 Headache, unspecified; Z95.0 Presence of cardiac pacemaker
CPT/HCPCS: 93005; 85025; 80048; 36415; 84484; 86140; 70486; 76377; 71045; 96360; 99285; J7030

== ENCOUNTER 2024-08-13 13:45 | Emergency (ER) | payer OTHER, BC ==
[2024-08-13] MEDS ORDERED: DIAZEPAM 2 MG TABLET ONE (14:22)
[2024-08-13] MEDS ORDERED: ACETAMINOPHEN 500 MG TAB ONE (14:22)
--- NOTE | 2024-08-13 14:35 | RAD REPORT ---
EXAM: CT brain without contrast HISTORY: headache, chronic, r sided COMPARISON: 07/17/2023 TECHNIQUE: Multiple contiguous axial images were obtained and a CT of the brain without contrast. Sag ittal and coronal reformats were performed. One or more of the following dose reduction techniques were used: Automated exposure control, adjust ment of the mA and/or kV according to patient size, and/or iterative reconstruction. FINDINGS: No evidence of hydrocephalus, intracranial hemorrhage, or extra-axial fluid collection. The brain is normal in morphology. No evidence of midline shift or areas of brain edema. The calvarium is intact. The visualized paranasal sinuses and mastoid air cells are essentially clear . IMPRESSION: No evidence of acute intracranial abnormality.
--- NOTE | 2024-08-13 14:59 | ER ---
Nurse's Notes [facility] Name: Alexa Mcintyre Age: 88 yrs Sex: Female : 1935 Arrival Date: 08/13/2024 Time: 13:45 Bed Treatment Private MD: Diagnosis: Headache;Sprain of joints and ligaments of other parts of neck, subsequent encounter Presentation: 08/13 14:04 Chief complaint: Patient states: pain to right side of head and right side of posterior aa5 neck, pt reports being seen here recently for same complaint. Coronavirus screen: At this time, the client does not indicate any symptoms associated with coronavirus-19. Ebola Screen: Patient denies travel to an Ebola-affected area in the 21 days before illness onset. Initial Sepsis Screen: Does the patient meet any 2 criteria? No. Patient's initial sepsis screen is negative. Does the patient have a suspected source of infection? No. Patient's initial sepsis screen is negative. Risk Assessment: Do you want to hurt yourself or someone else? Patient reports no desire to harm self or others. Onset of symptoms was 2024. 14:04 Acuity: ULICES 3 aa5 14:04 Method Of Arrival: Ambulatory aa5 Historical: - Allergies: 14:06 Sulfa (Sulfonamide Antibiotics); aa5 - PMHx: 14:06 Anxiety; BREAST CA; Diverticulitis; Hyperlipidemia; Hypertension; POLYCYSTIC KIDNEY aa5 DISEASE; TIA; - PSHx: 14:06 pacemaker; aa5 - Immunization history:: Adult Immunizations up to date. - Infectious Disease History:: Denies. - Social history:: Smoking status: Patient denies any tobacco usage or history of. Screenin:00 [facility] ED Fall Risk Assessment (Adult) History of falling in the last 3 months, kc6 including since admission No falls in past 3 months (0 pts) Confusion or Disorientation No (0 pts) Intoxicated or Sedated No (0 pts) Impaired Gait No (0 pts) Mobility Assist Device Used No (0 pt) Altered Elimination No (0 pt) Score/Fall Risk Level 0 - 2 = Low Risk Oriented to surroundings, Maintained a safe environment. Abuse screen: Denies threats or abuse. Denies injuries from another. Nutritional screening: No deficits noted. Tuberculosis screening: No symptoms or risk factors identified. Assessment: 15:00 Pain: Complains of pain in base of the skull, right trapezius and thoracic area. Neuro: kc6 Level of Consciousness is awake, alert, obeys commands, Oriented to person, place, time, situation, Appropriate for age. Respiratory: Airway is patent Trachea midline Respiratory effort is even, unlabored, Respiratory pattern is regular, symmetrical. Musculoskeletal: Circulation, motion, and sensation intact. Range of motion: intact in all extremities. Vital Signs: 14:04 BP 163 / 94; Pulse 64; Resp 18 S; Temp 97.5(O); Pulse Ox 100% on R/A; Weight 52.16 kg aa5 (R); Height 5 ft. 0 in. (R); 15:14 BP 139 / 86; Pulse 65; Resp 18 S; Pulse Ox 99% on R/A; kc6 14:04 Body Mass Index 22.46 (52.16 kg, 152.4 cm) aa5 ED Course: 13:50 Patient arrived in ED. cj3 14:00 Marcel Montemayor MD is Attending Physician. ec2 14:04 Arm band placed on. aa5 14:06 Triage completed. aa5 14:18 Clarissa Healy, KARON is Primary Nurse. kc6 14:28 CT Head Brain wo Cont In Process Unspecified. EDMS 14:59 Tim Martin MD is Referral Physician. ec2 15:00 Patient has correct armband on for positive identification. Bed in low position. Call kc6 light in reach. Side rails up X 1. Adult w/ patient. Pulse ox on. NIBP on. Door closed. Noise minimized. Lights dimmed. Pillow given. Verbal reassurance given. 15:00 No provider procedures requiring assistance completed. Patient did not have IV access kc6 during this emergency room visit. Patient maintains SpO2 saturation greater than 95% on room air. Administered Medications: 14:40 Drug: Diazepam PO 2 mg PO once Route: PO; kc6 15:01 Follow up: Response: No adverse reaction; Pain is decreased; RASS: Alert and Calm (0) kc6 14:40 Drug: Acetaminophen PO 1000 mg PO once Route: PO; kc6 15:01 Follow up: Response: No adverse reaction; Pain is decreased kc6 Medication: 15:15 VIS not applicable for this client. kc6 Outcome: 14:59 Discharge ordered by . ec2 15:14 Discharged to home ambulatory, with significant other, kc6 15:14 Condition: good 15:14 Discharge instructions given to patient, significant other, Instructed on discharge instructions, follow up and referral plans. no drinking with medication, no driving heavy equipment, medication usage, Demonstrated understanding of instructions, follow-up care, medications, Prescriptions given X 1, 15:15 Patient left the ED. kc6 Signatures: Dispatcher [employer] Kaylin Gabriel RN RN [email or web address] Clarissa Healy RN RN kc6 Marcel Montemayor MD MD ec2 Trisha Mcintyre 3
--- NOTE | 2024-08-13 14:59 | EDPHYS ---
Physician Documentation [facility] Name: Alexa Mcintyre Age: 88 yrs Sex: Female : 1935 Arrival Date: 08/13/2024 Time: 13:45 Bed Treatment Private MD: ED Physician Marcel Montemayor HPI: 08/13 14:11 This 88 yrs old Female presents to ER via Ambulatory with complaints of Head ec2 Pain, Neck Pain. 14:11 Patient arrives today for right-sided posterior headache going into the neck. Onset of ec2 1 month. No falls injuries or trauma. No sudden onset component. No fevers or chills, nausea or vomiting.. Historical: - Allergies: 14:06 Sulfa (Sulfonamide Antibiotics); aa5 - PMHx: 14:06 Anxiety; BREAST CA; Diverticulitis; Hyperlipidemia; Hypertension; POLYCYSTIC KIDNEY aa5 DISEASE; TIA; - PSHx: 14:06 pacemaker; aa5 - Immunization history:: Adult Immunizations up to date. - Infectious Disease History:: Denies. - Social history:: Smoking status: Patient denies any tobacco usage or history of. ROS: 14:13 Constitutional: as per hpi ec2 Exam: 14:13 Constitutional: GEN: NAD Head: atraumatic Eyes: EOMI Ears: External ears are ec2 normal. CV: regular rate LUNGS: no respiratory distress ABD: non-distended SKIN: no evidence of rashes MSK: no evidence of trauma. Neuro: Ambulatory with intact neurologic exam Vital Signs: 14:04 BP 163 / 94; Pulse 64; Resp 18 S; Temp 97.5(O); Pulse Ox 100% on R/A; Weight 52.16 kg aa5 (R); Height 5 ft. 0 in. (R); 15:14 BP 139 / 86; Pulse 65; Resp 18 S; Pulse Ox 99% on R/A; kc6 14:04 Body Mass Index 22.46 (52.16 kg, 152.4 cm) aa5 MDM: 14:02 Medical Screening Exam initiated ec2 14:13 Data reviewed: vital signs, nurses notes. ED course: Patient arrives today for ec2 right-sided headache. Examination yields well-appearing nontoxic neuro intact individuals otherwise no acute distress. Will obtain CT scan of the head to evaluate for other process such as intracranial mass, doubt brain bleed, doubt skull fracture given lack of mechanism or trauma. Will give the patient medications for her symptoms as well.. 14:58 ED course: CT scan of the head shows no acute intracranial malady. Will discharge home ec2 at the patient follow-up PCP and neurology for headache. Return precautions given.. 08/13 14:11 Order name: CT Head Brain wo Cont; Complete Time: 14:58 ec2 Administered Medications: 14:40 Drug: Diazepam PO 2 mg PO once Route: PO; kc6 15:01 Follow up: Response: No adverse reaction; Pain is decreased; RASS: Alert and Calm (0) kc6 14:40 Drug: Acetaminophen PO 1000 mg PO once Route: PO; kc6 15:01 Follow up: Response: No adverse reaction; Pain is decreased kc6 Disposition Summary: 08/13/24 14:59 Discharge Ordered Notes: Location: Home ec2 Condition: Stable ec2 Diagnosis - Headache ec2 - Sprain of joints and ligaments of other parts of neck, subsequent encounter ec2 Followup: ec2 - With: Private Physician - When: - Reason: Re-evaluation by your physician Followup: ec2 - With: Tim Martin MD - When: - Reason: Recheck today's complaints Discharge Instructions: - Discharge Summary Sheet ec2 - General Headache Without Cause ec2 Forms: - Medication Reconciliation Form ec2 - Antibiotic Education ec2 - Prescription Opioid Use ec2 - Patient Portal Instructions ec2 - Leadership Thank You Letter ec2 Prescriptions: - Compazine 10 mg Oral Tablet - take 1 tablet ORAL route every 8 hours As needed; 20 tablet; Refills: 0, ec2 Product Selection Permitted Signatures: Dispatcher [employer] Kaylin Gabriel RN RN aa5 Clarissa Healy RN RN kc6 Marcel Montemayor MD MD ec2
[2024-08-13 15:19] VITALS: TEMP 97.5
[2024-08-13 15:20] VITALS: BP 139/86; O2SAT 99
== END 2024-08-13 15:15 | disposition home or self-care (01) ==
LOC: ER 13:45
DX: S13.8XXA Sprain of joints and ligaments of other parts of neck, initial encounter (principal); Z95.0 Presence of cardiac pacemaker
CPT/HCPCS: 70450; 99283